=== PATIENT | female | born 1980 | race Caucasian/White ===

== ENCOUNTER 2020-05-20 11:08 | Outpatient (CLI) | payer OTHER, SELFPAY ==
--- NOTE | ~2020-05-20 | DEXA_ITS ---
Bone Density Report Name: Falguni Hemphill Age: 39 Sex: Female Ethnicity: White Date of : 1980 Indication: postmenopausal; height loss; Referring Provider: Renée Lim Study: Bone densitometry was performed. Exam Date: May 20, 2020 Accession number: [id number] Bone Density: Region BMD T-score Z-score Classification AP Spine (L1-L4) 1.196 1.4 1.5 Normal Femoral Neck (Left) 0.923 0.7 0.9 Normal Total Hip (Left) 1.008 0.5 0.7 Normal Femoral Neck (Right) 0.840 -0.1 0.2 Normal Total Hip (Right) 0.973 0.3 0.4 Normal Total Hip Mean 0.991 0.4 0.6 Normal World Health Organization criteria for BMD impression classify patients as: Normal (T-score at or above -1.0), Osteopenia (T-score between -1.0 and -2.5), or Osteoporosis (T-score at or below -2.5). 10-year Fracture Risk: FRAX not reported because: All T-scores for Spine Total, Hip Total, Femoral Neck at or above -1.0 Clinical Information Provided by Patient: Patient maximum height was 68 Menopause Age: 38 Drinks caffeinated beverages Onset of menses at age 17 Number of children 0 Impression: The patient has normal bone mass. Discussion: BONE DENSITY IS ABOVE THE MINIMUM DESIRABLE LEVEL AT ALL SKELETAL SITES TESTED. This patient?s bone mineral density is above the minimum desirable level (T-score -1.0 or better) at all sites measured. The patient should follow a healthful lifestyle (good nutrition with adequate calcium and vitamin D, and appropriate weight-bearing exercise). Follow-Up: Consider repeating this study in 5 years or sooner if there is some new clinical indication. Reported by: JAH on 05/20/2020 4:20:00 PM. Reviewed, dictated and finalized at location ASrini MCCRACKEN
== END 2020-05-20 11:09 ==
PROVIDERS: Visit Provider Advanced Practice Midwife
DX: Z30.42 Encounter for surveillance of injectable contraceptive (principal); Z78.0 Asymptomatic menopausal state
CPT/HCPCS: 77080

== ENCOUNTER 2020-07-10 06:42 | Outpatient (CLI) | payer OTHER, SELFPAY ==
--- NOTE | ~2020-07-10 | MR_ITS ---
EXAMINATION: MR lumbar spine wo con DATE: 07/10/2020 07:44 INDICATION: Low back pain. TECHNIQUE: Magnetic resonance imaging (MRI) of the lumbar spine was performed without intravenous con trast. Sequences included sagittal T2-weighted FSE, sagittal T2-weighted FS FSE, sagittal T1-weighted FSE, and axial T2-weighted FSE. COMPARISON: Lumbar spine MRI 02/12/2012 FINDINGS: Bone alignment is normal. There is a Schmorl's node of L4 superior endplate. There is mildl y decreased disc height at L5-S1. The distal spinal cord signal intensity is normal. The conus medull dylan is at L1. The following disc levels are specifically discussed: L1-L2: The disc does not extend beyond the endplate margin. There is mild bilateral facet joint osteo arthritis. There is no neural foraminal stenosis. There is no central canal stenosis. L2-L3: The disc does not extend beyond the endplate margin. There is mild bilateral facet joint osteo arthritis. There is no neural foraminal stenosis. There is no central canal stenosis. L3-L4: The disc does not extend beyond the endplate margin. There is moderate bilateral facet joint o steoarthritis. There is no neural foraminal stenosis. There is no central canal stenosis. L4-L5: The disc is bulging and has an annular fissure. There is moderate bilateral facet joint osteoa rthritis. There is mild bilateral neural foraminal stenosis. There is mild central canal stenosis. L5-S1: There is a right central extrusion. There is moderate bilateral facet joint osteoarthritis. Th ere is no neural foraminal stenosis. There is mild central canal stenosis. IMPRESSION: 1. Mild lumbar spondylosis, stable from 02/12/2012. Reviewed, dictated and finalized at location B. SORS SHARPENER
== END 2020-07-10 06:43 | disposition home or self-care (01) ==
PROVIDERS: PCP Internal Medicine; Visit Provider Internal Medicine
DX: M47.817 Spondylosis without myelopathy or radiculopathy, lumbosacral region (principal); M48.07 Spinal stenosis, lumbosacral region
CPT/HCPCS: 72148

== ENCOUNTER 2020-10-10 09:12 | Outpatient (CLI) | payer OTHER, SELFPAY ==
--- NOTE | ~2020-10-10 | MR_ITS ---
EXAMINATION: MR cervical spine wo con DATE: 10/10/2020 10:32 INDICATION: Cervical radiculopathy. TECHNIQUE: Magnetic resonance imaging (MRI) of the cervical spine was performed without intravenous c ontrast. Sequences included sagittal T2-weighted FSE, sagittal STIR FSE, sagittal T1-weighted FSE, ax ial MERGE, and axial T2-weighted FSE. COMPARISON: Cervical spine MRI 02/12/2012 FINDINGS: There is mild kyphosis of cervical spine. Vertebral body heights are normal. There is mildl y decreased disc height at C5-C6. There is syringohydromyelia from C6 to T1 with maximum diameter of 4 mm. The following disc levels are specifically discussed: C2-C3: The disc does not extend beyond the endplate margin. There is no uncovertebral joint osteoarth ritis. There is no facet joint osteoarthritis. There is no neural foraminal stenosis. There is no dominic tral canal stenosis. C3-C4: The disc does not extend beyond the endplate margin. There is mild right uncovertebral joint o steoarthritis. There is mild bilateral facet joint osteoarthritis. There is mild right neural foramin al stenosis. There is no central canal stenosis. C4-C5: The disc does not extend beyond the endplate margin. There is mild bilateral uncovertebral evelio nt osteoarthritis. There is mild bilateral facet joint osteoarthritis. There is no neural foraminal s tenosis. There is no central canal stenosis. C5-C6: The disc is bulging. There is mild bilateral uncovertebral joint osteoarthritis. There is no f acet joint osteoarthritis. There is mild right neural foraminal stenosis. There is mild central canal stenosis. C6-C7: The disc does not extend beyond the endplate margin. There is no uncovertebral joint osteoarth ritis. There is no facet joint osteoarthritis. There is no neural foraminal stenosis. There is no dominic tral canal stenosis. C7-T1: The disc does not extend beyond the endplate margin. There is no uncovertebral joint osteoarth ritis. There is mild bilateral facet joint osteoarthritis. There is no neural foraminal stenosis. The re is no central canal stenosis. IMPRESSION: 1. 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 2. Worsened mild cervical spondylosis. Reviewed, dictated and finalized at location A. INE CEMENTER AND FOLDER
== END 2020-10-10 09:13 ==
PROVIDERS: Visit Provider Chiropractor
DX: M47.22 Other spondylosis with radiculopathy, cervical region (principal)
CPT/HCPCS: 72141

== ENCOUNTER 2020-10-26 17:38 | Emergency (ER) | payer OTHER, SELFPAY ==
[2020-10-26 17:56] VITALS: BP 133/95; PULSE 93; RESP 16; TEMP 37; O2SAT 98
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
[2020-10-26] MEDS: SILVER SULFADIAZINE 1% CR 50 GM JAR (*BKC) 1 APPLIC TOPICAL (18:22)
== END 2020-10-26 18:34 | disposition home or self-care (01) ==
PROVIDERS: Emergency Provider Nurse Practitioner
DX: T54.2X1A Toxic effect of corrosive acids and acid-like substances, accidental (unintentional), initial encounter (principal); T22.512A Corrosion of first degree of left forearm, initial encounter; T22.511A Corrosion of first degree of right forearm, initial encounter; Y99.0 Civilian activity done for income or pay
CPT/HCPCS: 16000; 99213; A9270; G0463

== ENCOUNTER 2020-12-21 17:20 | Emergency (ER) | payer OTHER, SELFPAY ==
[2020-12-21] VITALS (14 sets, daily range): BP systolic 128–138; BP diastolic 80–101; PULSE 85–98; RESP 11–21; TEMP 36.2; O2SAT 99–100
--- NOTE | ~2020-12-21 | CT_ITS ---
EXAMINATION: CT BRAIN W/O DATE: 12/21/2020 19:58 INDICATION: Dizziness TECHNIQUE: Computed tomography (CT) of the head was performed without intravenous contrast. The dose- length product was 529.67 mGy-cm. Automated exposure control and iterative reconstruction technique w ere employed. COMPARISON: No prior studies for comparison. FINDINGS: Normal brain parenchymal volume for age. Normal farias-white differentiation. No acute intrac ranial hemorrhage, infarction, mass or mass effect. No ventriculomegaly or midline shift. Midline sagittal images demonstrate a normal corpus callosum, c raniovertebral junction and sella turcica. Basilar cisterns are patent. Paranasal sinuses and mastoids are pneumatized. No depressed skull fractures. IMPRESSION: 1. No acute intracranial abnormality. Reviewed, dictated and finalized at location A.
--- NOTE | ~2020-12-21 | XR_ITS ---
EXAMINATION: XR chest 2V 12/21/2020 18:25 INDICATION: Left-sided chest pain PROCEDURE: 2 view chest COMPARISON: 10/22/2015 FINDINGS: The lungs are clear. The cardiomediastinal silhouette is within normal limits. There are no pleural effusions. There is no pneumothorax suspected. IMPRESSION: 1: NO ACUTE CARDIOPULMONARY DISEASE. Reviewed, dictated and finalized at location A.
--- NOTE | 2020-12-21 17:59 | ECG_ITS ---
Measurements Intervals [place] Rate: 89 P: 54 RI: 153 QRS: 9 QRSD: 77 T: 39 QT: 337 QTc: 412 Interpretive Statements SINUS RHYTHM BASELINE ARTIFACT- I, III, AVL NORMAL ECG Electronically Signed On 12-21-2020 20:09:43 CDT by Jack Fernandez D.O.
[2020-12-21 18:51] LABS: Basophils Absolute Auto 0.1 K/mm3 (0.0-0.1); Basophils Percent Auto 0.6 % (0.2-1.2); Eosinophils Absolute Auto 0.1 K/mm3 (0-0.3); Eosinophils Percent Auto 1.2 % (0-4.4); Hematocrit 40.9 % (37.0-47.0); Hemoglobin 13.5 g/dL (12.0-15.0); Immature Granulocyte Absolute 0.03 K/mm3 (0.00-0.031); Immature Granulocyte Percent A 0.4 % (0-0.5); Lymphocytes Absolute Auto 2.69 K/mm3 (0.9-3.2); Lymphocytes Percent Auto 32.2 % (18.3-44.2); Mean Corpuscular Hemoglobin 28.2 pg (26-34); Mean Corpuscular Volume 85.6 fl (80-100); Mean Platelet Volume 10.7 fl (7.4-10.4); Monocytes Absolute Auto 0.6 K/mm3 (0.1-0.6); Monocytes Percent Auto 6.8 % (2.6-8.5); Neutrophils Absolute Auto 4.9 K/mm3 (1.3-6.7); Neutrophils Percent Auto 58.8 % (45.5-73.1); Platelet Count Result 242 k/mm3 (150-375); Red Blood Count 4.78 M/mm3 (4.2-5.4); Red Cell Distribution Width 12.1 % (11.5-14.5); White Blood Count 8.4 K/mm3 (4.5-10.0)
[2020-12-21 19:00] LABS: INR 0.9; Prothrombin Time 12.9 Seconds (11.1-14.7)
[2020-12-21 19:01] LABS: Partial Thromboplastin Time 27.6 SECONDS (22.3-36.8)
[2020-12-21 19:07] LABS: Anion Gap 11 mmol/L (8-16); Blood Urea Nitrogen 12 mg/dL (7-17); Calcium 9.5 mg/dL (8.4-10.2); Carbon Dioxide 26 mmol/L (22-30); Chloride 107 mmol/L (98-107); Estimated CRCL calculation 74 ml/min; Estimated Glomerular Filt Rate > 60; Glucose 86 mg/dL (65-105); Potassium 3.6 mmol/L (3.4-5.0); Sodium 144 mmol/L (137-145)
[2020-12-21 19:20] LABS: Troponin I < 0.012 ng/mL (0.000-0.034)
[2020-12-21] MEDS: ASPIRIN 81 MG CHEWABLE TABLET 324 MG PO (19:33)
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
[2020-12-21] MEDS: SODIUM CHLORIDE 0.9% IV 1,000 ML 999 ML IV CONT (19:39)
[2020-12-21] MEDS: diazePAM (*CRX) 2 MG TABLET PO (19:39)
--- NOTE | 2020-12-21 19:40 | ED.CHESTPAIN ---
HPI - Chest Pain General Chief Complaint: Chest Pain Stated Complaint: chest pain, sent from [facility] Time Seen by Provider: 12/21/20 19:05 Source: patient Mode of arrival: ambulatory Limitations: no limitations History of Present Illness HPI narrative: Patient presents for evaluation of chest pain and dizziness. She indicates she was mowing the lawn on Tuesday of last week when she felt acute onset left-sided chest pain. She states she felt like she was going to pass out . She had associated fuzzy vision in both eyes right greater than left. Related Data Home Medications Medication Instructions Recorded Confirmed medroxyprogesterone mg IM 10/26/20 Allergies Allergy/AdvReac Type Severity Reaction Status Date / Time doxycycline Allergy Severe SWELLING Verified 12/21/20 18:03 IN THE MOUTH codeine Allergy Unknown MOUTH Verified 12/21/20 18:03 INFLAMMATION AND MOUTH SORES acetaminophen AdvReac Severe swelling Verified 12/21/20 18:03 hydrocodone AdvReac Severe swelling Verified 12/21/20 18:03 PMFSH Past Medical History Medical History (Updated 10/27/20 @ 00:00 by Cecily Yi) Depression Eczema Fatty liver History of gallbladder disease History of pneumonia Hx of transient ischemic attack (TIA) Surgical History Surgical History (Updated 09/11/19 @ 15:24 by Edd Butt) History of cholecystectomy History of left knee surgery x1 Hx of right knee surgery x2 Family History Family History (Updated 03/27/15 @ 08:12 by DOCTOR UNKNOWN) Mother Hypertension Other Cerebrovascular accident Diabetes mellitus Family history of allergic disorder Family history of malignant neoplasm Social History Social History Smoking status: Never smoker Second hand tobacco smoke exposure: Yes Smoking end date: 08/29/95 Alcohol intake: never Gender identity (if verbalized by the patient): Female Course Vital Signs Vital signs: Vital Signs Temperature 36.2 C L 12/21/20 18:00 Pulse Rate 91 12/21/20 18:00 Respiratory Rate 18 12/21/20 18:00 Blood Pressure 128/80 12/21/20 18:00 Pulse Oximetry 100 12/21/20 18:00 Temperature 36.2 C L 12/21/20 18:00 Pulse Rate 89 12/21/20 18:55 Respiratory Rate 14 12/21/20 18:55 Blood Pressure 132/101 H 12/21/20 18:55 Pulse Oximetry 100 04/25/21 18:55 MDM - Chest Pain Lab Data Result diagrams: 12/21/20 18:44 12/21/20 18:44 Labs: Lab Results 12/21/20 12/21/20 12/21/20 Range/Units 18:44 18:44 18:44 WBC 8.4 (4.5-10.0) K/mm3 RBC 4.78 (4.2-5.4) M/mm3 Hgb 13.5 (12.0-15.0) g/dL Hct 40.9 (37.0-47.0) % MCV 85.6 (80-100) fl MCH 28.2 (26-34) pg MCHC 33.0 (32-36) g/dl RDW 12.1 (11.5-14.5) % Plt Count 242 (150-375) k/mm3 MPV 10.7 H (7.4-10.4) fl Immature Gran % (Auto) 0.4 (0-0.5) % Neut % (Auto) 58.8 (45.5-73.1) % Lymph % (Auto) 32.2 (18.3-44.2) % [facility] [place] [facility] % (Auto) 6.8 (2.6-8.5) % Eos % (Auto) 1.2 (0-4.4) % Baso % (Auto) 0.6 (0.2-1.2) % Lymph # (Auto) 2.69 (0.9-3.2) K/mm3 [facility] [place] [facility] # (Auto) 0.6 (0.1-0.6) K/mm3 Eos # (Auto) 0.1 (0-0.3) K/mm3 Baso # (Auto) 0.1 (0.0-0.1) K/mm3 Abs Immat Gran (auto) 0.03 (0.00-0.031) K/mm3 Absolute Neuts (auto) 4.9 (1.3-6.7) K/mm3 Absolute Nucleated RBC 0.0 (0.0-0.012) K/mm3 Nucleated RBC % 0.0 (0.0-0.2) % PT 12.9 (11.1-14.7) Seconds INR 0.9 APTT 27.6 (22.3-36.8) SECONDS Sodium 144 (137-145) mmol/L Potassium 3.6 (3.4-5.0) mmol/L Chloride 107 (98-107) mmol/L Carbon Dioxide 26 (22-30) mmol/L Anion Gap 11 (8-16) mmol/L BUN 12 (7-17) mg/dL Creatinine 0.90 (0.7-1.0) mg/dL Estim Creat Clear Calc 74 ml/min Estimated GFR > 60 (59 - ) Glucose 86 (65-105) mg/dL Calcium 9.5 (8.4-10.2) mg/dL Troponin I < 0.012 (0.000-0.034) ng/mL Discharge Plan Discha
--- NOTE | 2020-12-21 19:59 | PC.NURSE ---
Patient in CT.
[2020-12-21 20:12] LABS: D Dimer 0.27 ug/mL (<0.48)
[2020-12-21 21:04] LABS: Add Urine Microscopic? YES; Appearance Urine Clear (Clear); Bacteria Urine Trace /hpf; Bilirubin Urine Negative (Negative); Blood Urine Negative (Negative); Color Urine Yellow (Yellow); Glucose Urine UA Negative (Negative); Ketones Urine Negative (Negative); Leukocyte Esterase Ur Trace LEU/UL (Negative); Mucus Urine Rare /lpf; Nitrate Urine Negative (Negative); Protein Urine Negative (Negative); RBC Urine 0-2 /hpf (0-2); Specific Grav Ur 1.024 (1.001-1.035); Squamous Epithelial Cell Urine Rare /hpf (Few); Urobilinogen Urine Negative mg/dL (<2.0); WBC Urine 0-3 /hpf
== END 2020-12-21 21:14 | disposition home or self-care (01) ==
PROVIDERS: General Practice; Emergency Provider Nurse Practitioner; PCP Internal Medicine
DX: R07.9 Chest pain, unspecified (principal); R42 Dizziness and giddiness; F32.9 Major depressive disorder, single episode, unspecified; Z86.73 Personal history of transient ischemic attack (TIA), and cerebral infarction without residual deficits; Z77.22 Contact with and (suspected) exposure to environmental tobacco smoke (acute) (chronic)
CPT/HCPCS: 36415; 70450; 71046; 80048; 81001; 84484; 85025; 85380; 85610; 85730; 93005; 96360; 99284; A9270; J7030

== ENCOUNTER 2021-09-28 09:48 | Outpatient (CLI) | payer OTHER, SELFPAY ==
--- NOTE | ~2021-09-28 | XR_ITS ---
EXAMINATION: XR abdomen/kub 1V INDICATION: Bilateral nephrolithiasis TECHNIQUE: Supine views of the abdomen were obtained on 2 radiographs. COMPARISON: 04/15/2015 FINDINGS: No urolithiasis is identified. There are phleboliths of the left pelvis. The bowel gas castillo sultana is normal. Surgical clips in the right upper quadrant are likely from prior cholecystectomy. IMPRESSION: 1. No urolithiasis identified. Reviewed, dictated and finalized at location B. FILTER CLOTH CHANGER
--- NOTE | ~2021-09-28 | US_ITS ---
EXAMINATION: US retroperitoneal comp DATE: 09/28/2021 10:29 INDICATION: History of kidney stones TECHNIQUE: Multiple grayscale and Doppler ultrasound images of the kidneys were obtained. COMPARISON: 01/02/2015 FINDINGS: The right kidney measures 10.8 x 5.3 x 4.8 cm. The left kidney measures 10.6 x 5.1 x 4.3 cm . The kidneys demonstrate normal parenchymal echogenicity. There is no hydronephrosis. The bladder is normal. IMPRESSION: 1. Normal kidneys without hydronephrosis. Reviewed, dictated and finalized at location B. 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
== END 2021-09-28 09:49 | disposition home or self-care (01) ==
LOC: ANHIMG 09:54
PROVIDERS: PCP Internal Medicine; Visit Provider Nurse Practitioner Adult Health
DX: N20.0 Calculus of kidney (principal)
CPT/HCPCS: 74018; 76770

== ENCOUNTER 2021-12-12 21:41 | Emergency (ER) | payer OTHER, SELFPAY ==
--- NOTE | ~2021-12-12 | XR_ITS ---
EXAMINATION: XR chest 1V portable DATE: 12/12/2021 22:04 INDICATION: Cough and congestion. TECHNIQUE: A single frontal view of the chest was obtained. COMPARISON: Chest 2 views 12/21/2020 FINDINGS: The chest demonstrates clear lungs without pneumonia, pleural effusion, or pneumothorax. Th e heart size is normal. IMPRESSION: 1. No acute cardiopulmonary disease. Reviewed, dictated and finalized at location A.
[2021-12-12 21:44] VITALS: BP 106/82; PULSE 111; RESP 18; TEMP 36.7; O2SAT 100
--- NOTE | 2021-12-12 22:16 | ED.GENADULT ---
HPI - General Adult General Chief complaint: Upper Respiratory Infection Stated complaint: cough a week Time Seen by Provider: 12/12/21 21:49 Source: patient Mode of arrival: ambulatory Limitations: no limitations History of Present Illness HPI narrative: 41-year-old female with history of bronchitis presenting to the emerge department for evaluation of cough and congestion that has been worsening over the last few days. Patient states that the symptoms are consistent with her previous episodes of bronchitis which she gets yearly. Patient states she is not a smoker. Patient does report painful cough but denies any chest pain when not coughing. Related Data Home Medications Medication Instructions Recorded Confirmed medroxyprogesterone mg IM 10/26/20 Allergies Allergy/AdvReac Type Severity Reaction Status Date / Time doxycycline Allergy Severe SWELLING Verified 12/21/20 18:03 IN THE MOUTH codeine Allergy Unknown MOUTH Verified 12/21/20 18:03 INFLAMMATION AND MOUTH SORES acetaminophen AdvReac Severe swelling Verified 12/21/20 18:03 hydrocodone AdvReac Severe swelling Verified 12/21/20 18:03 Review of Systems Review of Systems: CONSTITUTIONAL: Denies fever, chills, or sweats. EYES: Denies visual changes, redness, or discharge. ENT: Denies rhinorrhea, congestion, sore throat, or otalgia. CARDIOVASCULAR: Denies chest pain, palpitations, or edema. RESPIRATORY: See HPI GASTROINTESTINAL: Denies abdominal pain, nausea, vomiting, or diarrhea. GENITOURINARY: Denies dysuria or hematuria. SKIN: Denies rash or itching. MUSCULOSKELETAL: Denies back pain, joint pain, or myalgia. NEUROLOGIC: Denies headache, numbness, or weakness. All systems reviewed & are unremarkable except as noted in HPI and below PMFSH Past Medical History Medical History Depression Eczema Fatty liver History of gallbladder disease History of pneumonia Hx of transient ischemic attack (TIA) Surgical History Surgical History History of cholecystectomy History of left knee surgery x1 Hx of right knee surgery x2 Family History Family History Mother Hypertension Other Cerebrovascular accident Diabetes mellitus Family history of allergic disorder Family history of malignant neoplasm Social History Social History Smoking status: Never smoker Second hand tobacco smoke exposure: Yes Smoking end date: 08/29/95 Alcohol intake: never Gender identity (if verbalized by the patient): Female Exam Narrative: APPEARANCE: Well appearing, no pain, no distress, well-nourished. HEAD: normocephalic, atraumatic. EYES: PERRLA/EOMI, conjunctivae clear. NOSE: Normal no drainage THROAT: Pharynx clear, no exudate. NECK: Supple. No adenopathy, no masses. RESPIRATORY: Airway patent, respirations nonlabored. Clear to auscultation bilaterally, no rales, rhonchi, wheezing. CARDIOVASCULAR: Regular rate and rhythm without murmurs rubs or gallops. ABDOMINAL: Soft, nontender, nondistended, normal bowel sounds MUSCULOSKELETAL: Moves all extremities. Strength/ROM intact, No edema, No calf tenderness. NEURO: Alert. Cranial nerves II through XII intact. Grossly intact SKIN: Warm, dry. Normal Color Course Course Emergency Course: Patient was negative for Covid and for influenza. Chest x-ray shows no acute cardiopulmonary abnormality. Patient is being treated for a viral illness or bronchitis. Patient will be discharged with albuterol inhaler. Patient was also provided Tessalon Perles for cough. Patient was encouraged to have close follow-up with her primary care physician. Vital Signs Vital signs: Vital Signs Temperature 98.0 F 12/12/21 21:44 Pulse Rate 111 H 12/12/21 21:44 Respirator
[2021-12-12 22:42] VITALS: BP 119/76; PULSE 102; RESP 18; O2SAT 100
[2021-12-12 23:09] LABS: Influenza A QL RT-PCR Negative (Negative); Influenza B QL RT-PCR Negative (Negative); SARS-CoV-2 RNA PCR Negative
[2021-12-12 23:26] VITALS: BP 132/78; PULSE 103; RESP 18; O2SAT 100
== END 2021-12-12 23:31 | disposition home or self-care (01) ==
PROVIDERS: Emergency Provider Emergency Medicine; PCP Internal Medicine
DX: J40 Bronchitis, not specified as acute or chronic (principal); Z20.822 Contact with and (suspected) exposure to COVID-19; Z87.01 Personal history of pneumonia (recurrent); Z86.73 Personal history of transient ischemic attack (TIA), and cerebral infarction without residual deficits; Z87.891 Personal history of nicotine dependence
CPT/HCPCS: 71045; 87502; 99283; C9803; U0003; U0005

== ENCOUNTER 2022-07-31 08:57 | Outpatient (CLI) | payer OTHER, SELFPAY ==
--- NOTE | 2022-07-31 | ECG_ITS ---
Measurements Intervals [place] Rate: 88 P: 60 NE: 146 QRS: 25 QRSD: 93 T: 44 QT: 360 QTc: 436 Interpretive Statements SINUS RHYTHM NORMAL ECG COMPARED TO ECG 12/21/2020 18:36:42 NO SIGNIFICANT CHANGES Electronically Signed On 07-31-2022 14:07:48 ELECTRONIC ENGINEERING DRAFTSPERSON by Michel Vásquez M.D.
--- NOTE | ~2022-07-31 | XR_ITS ---
EXAMINATION: XR chest 2V 07/31/2022 09:24 INDICATION: Preoperative for cervical disc replacement PROCEDURE: 2 view chest COMPARISON: Comparison to multiple prior studies sequentially, with oldest reviewed study dated 06/30. FINDINGS: The lungs are clear. The cardiomediastinal silhouette is within normal limits. There are no pleural effusions. There is no pneumothorax suspected. IMPRESSION: 1: NO ACUTE CARDIOPULMONARY DISEASE. Reviewed, dictated and finalized at location A. MENT PREPARER MICROFILMING
[2022-07-31 10:27] LABS: Anion Gap 10 mmol/L (8-16); Basophils Absolute Auto 0.1 K/mm3 (0.0-0.1); Basophils Percent Auto 0.8 % (0.2-1.2); Blood Urea Nitrogen 9 mg/dL (7-17); Carbon Dioxide 24 mmol/L (22-30); Chloride 105 mmol/L (98-107); Eosinophils Absolute Auto 0.2 K/mm3 (0-0.3); Eosinophils Percent Auto 1.9 % (0-4.4); Estimated Glomerular Filt Rate > 60; Glucose 105 mg/dL (65-110); Hematocrit 39.1 % (37.0-47.0); Hemoglobin 13.5 g/dL (12.0-15.0); Immature Granulocyte Absolute 0.02 K/mm3 (0.00-0.031); Immature Granulocyte Percent A 0.3 % (0-0.5); Lymphocytes Absolute Auto 2.95 K/mm3 (0.9-3.2); Lymphocytes Percent Auto 37.2 % (18.3-44.2); Mean Corpuscular HGB Conc 34.5 g/dl (32-36); Mean Corpuscular Hemoglobin 28.7 pg (26-34); Monocytes Absolute Auto 0.6 K/mm3 (0.1-0.6); Monocytes Percent Auto 6.9 % (2.6-8.5); Neutrophils Absolute Auto 4.2 K/mm3 (1.3-6.7); Neutrophils Percent Auto 52.9 % (45.5-73.1); Platelet Count Result 243 k/mm3 (150-375); Potassium 3.6 mmol/L (3.4-5.0); Red Blood Count 4.71 M/mm3 (4.2-5.4); Red Cell Distribution Width 12.5 % (11.5-14.5); Sodium 139 mmol/L (137-145); White Blood Count 7.9 K/mm3 (4.5-10.0)
[2022-07-31 10:29] LABS: Prothrombin Time 12.8 Seconds (11.1-14.7)
[2022-07-31 10:30] LABS: Partial Thromboplastin Time 27.2 SECONDS (22.3-36.8)
== END 2022-07-31 08:58 | disposition home or self-care (01) ==
PROVIDERS: PCP Internal Medicine; Visit Provider Neurological Surgery
DX: M50.222 Other cervical disc displacement at C5-C6 level (principal); M12.88 Other specific arthropathies, not elsewhere classified, other specified site; G95.0 Syringomyelia and syringobulbia
CPT/HCPCS: 36415; 71046; 80048; 85025; 85610; 85730; 93005

== ENCOUNTER 2023-09-08 08:18 | Outpatient (CLI) | payer OTHER, SELFPAY ==
--- NOTE | ~2023-09-08 | XR_ITS ---
AP and oblique views of the SI joints Clinical history chronic back pain FINDINGS: SI joints and hip joints are unremarkable. No fracture seen. Soft tissues are unremarkable. IMPRESSION: Unremarkable exam. Reviewed, dictated and finalized at location M. GER DISASTER RECOVERY IMPRESSION: Unremarkable exam.
--- NOTE | ~2023-09-08 | XR_ITS ---
Lumbosacral Spine: AP and lateral views Clinical History: Pain Findings: The normal lordotic curve is maintained. The vertebral bodies and posterior elements are i ntact. The intervertebral disc spaces are preserved. The sacroiliac joints are normally outlined. Impression: No significant abnormality. Reviewed, dictated and finalized at [facility]. ARMS INSPECTOR Impression: No significant abnormality.
== END 2023-09-08 08:19 | disposition home or self-care (01) ==
LOC: ANHIMG 08:24
PROVIDERS: PCP Internal Medicine; Visit Provider Internal Medicine
DX: M54.50 Low back pain, unspecified (principal)
CPT/HCPCS: 72100; 72202

== ENCOUNTER 2024-05-02 13:55 | Emergency (ER) | payer OTHER, SELFPAY ==
[2024-05-02 14:02] VITALS: BP 132/82; PULSE 108; RESP 18; TEMP 36.5; O2SAT 100
--- NOTE | 2024-05-02 14:29 | ED.GENADULT ---
HPI - General Adult General Chief complaint: Wound/Laceration Stated complaint: infected umbilicus Time Seen by Provider: 05/02/24 14:08 History of Present Illness HPI narrative: 43-year-old female presenting to the emergency department for evaluation for infection her belly button. Patient 1st noticed the infection this morning. Patient states the umbilicus does sting and she has increased erythema. Patient denies any pain or injury. Patient denies any discharge. Related Data Home Medications Medication Instructions Recorded Confirmed medroxyprogesterone 150 mg/mL mg IM 10/26/20 intramuscular suspension Allergies Allergy/AdvReac Type Severity Reaction Status Date / Time doxycycline Allergy Severe SWELLING Verified 12/21/20 18:03 IN THE MOUTH codeine Allergy Unknown MOUTH Verified 12/21/20 18:03 INFLAMMATION AND MOUTH SORES acetaminophen AdvReac Severe swelling Verified 12/21/20 18:03 hydrocodone AdvReac Severe swelling Verified 12/21/20 18:03 Review of Systems Review of Systems: All systems reviewed & are unremarkable except as noted in HPI and below PMFSH Past Medical History Medical History Depression Eczema Fatty liver History of gallbladder disease History of pneumonia Hx of transient ischemic attack (TIA) Surgical History Surgical History History of cholecystectomy History of left knee surgery x1 Hx of right knee surgery x2 Family History Family History Mother Hypertension Other Cerebrovascular accident Diabetes mellitus Family history of allergic disorder Family history of malignant neoplasm Social History Social History Smoking status: Never smoker Second hand tobacco smoke exposure: Yes Smoking end date: 08/29/95 Alcohol intake: never Gender identity (if verbalized by the patient): Female Exam Narrative: APPEARANCE: Well appearing, no pain, no distress, well-nourished. HEAD: normocephalic, atraumatic. EYES: PERRLA/EOMI, conjunctivae clear. NOSE: Normal no drainage EARS:TMS clear with good light reflex. THROAT: Pharynx clear, no exudate. NECK: Supple. No adenopathy, no masses. RESPIRATORY: Airway patent, respirations nonlabored. Clear to auscultation bilaterally, no rales, rhonchi, wheezing. CARDIOVASCULAR: Regular rate and rhythm without murmurs rubs or gallops. ABDOMINAL: Soft, nontender, nondistended, normal bowel sounds MUSCULOSKELETAL: Moves all extremities. Strength/ROM intact, No edema, No calf tenderness. NEURO: Alert. Cranial nerves II through XII intact. Good gait. Good coordination SKIN: Mild erythema at the base of her umbilicus Course Course Emergency Course: Patient was started on Bactroban for possible umbilical cellulitis. Vital Signs Vital signs: Vital Signs Temperature 97.7 F 05/02/24 14:02 Pulse Rate 108 H 05/02/24 14:02 Respiratory Rate 18 05/02/24 14:02 Blood Pressure 132/82 05/02/24 14:02 Pulse Oximetry 100 05/02/24 14:02 Oxygen Delivery Room Air 05/02/24 14:02 Temperature 97.7 F 05/02/24 14:02 Pulse Rate 108 H 05/02/24 14:02 Respiratory Rate 18 05/02/24 14:02 Blood Pressure 132/82 05/02/24 14:02 Pulse Oximetry 100 05/02/24 14:02 Oxygen Delivery Room Air 05/02/24 14:02 Medical Decision Making [facility] Narrative Medical decision making narrative: 43-year-old female presents emergency department for evaluation for suspected infection at the base of her umbilicus. Patient has no active drainage. No surrounding erythema. Patient was started on Bactroban and encouraged to have close follow-up with her primary care physician. Vital Signs Vital Signs: Vital Signs Temperature 97.7 F 05/02/24 14:02 Pulse Rate
== END 2024-05-02 14:42 | disposition home or self-care (01) ==
PROVIDERS: Emergency Provider Emergency Medicine; PCP Internal Medicine
DX: L03.316 Cellulitis of umbilicus (principal); Z86.73 Personal history of transient ischemic attack (TIA), and cerebral infarction without residual deficits
CPT/HCPCS: 99283

== ENCOUNTER 2024-05-14 09:04 | Emergency (ER) | payer OTHER, SELFPAY ==
--- NOTE | ~2024-05-14 | XR_ITS ---
EXAMINATION: XR knee LT min 4V DATE: 05/14/2024 09:32 INDICATION: Lateral left knee pain post twisting injury 5 days prior TECHNIQUE: Weight bearing anteroposterior and Griffith, sunrise, and flexed lateral views of the lef t knee were obtained COMPARISON: None. FINDINGS: Alignment is normal. No fracture. Joint spaces are normal. There is mild hypertrophic change along t he lateral margin of the patella. Minimal left knee joint effusion at the suprapatellar pouch.. Soft tissues are otherwise unremarkable. IMPRESSION: 1. Minimal left knee joint effusion. No acute osseous abnormality. Reviewed, dictated and finalized at location B.
[2024-05-14 09:15] VITALS: BP 122/88; PULSE 85; RESP 16; TEMP 36.4; O2SAT 100
--- NOTE | 2024-05-14 09:16 | ED.LOWEXIN ---
HPI - Extremity Injury (Lower) General Chief Complaint: Extremity Injury, Lower Stated Complaint: Injured Left Knee Time Seen by Provider: 05/14/24 09:27 Source: patient, RN notes reviewed and old records reviewed Mode of arrival: ambulatory Limitations: no limitations History of Present Illness HPI Narrative: 43-year-old female presents to the [facility] with complaints of left knee pain and swelling. Patient reports that she was walking, stepped in a hole and twisted her knee on Tuesday, 3 days ago. No bruising noted. Tenderness to the entire anterior portion with tightness on the upper portion Swelling is noted to the lateral, medial and lower aspect of the knee Onset (ago): day(s) (3) Related Data Home Medications Medication Instructions Recorded Confirmed medroxyprogesterone 150 mg/mL mg IM 10/26/20 intramuscular suspension Allergies Allergy/AdvReac Type Severity Reaction Status Date / Time doxycycline Allergy Severe SWELLING Verified 05/14/24 09:27 IN THE MOUTH codeine Allergy Unknown MOUTH Verified 05/14/24 09:27 INFLAMMATION AND MOUTH SORES acetaminophen AdvReac Severe swelling Verified 05/14/24 09:27 hydrocodone AdvReac Severe swelling Verified 05/14/24 09:27 Review of Systems Review of Systems: All systems reviewed & are unremarkable except as noted in HPI and below Constitutional: Constitutional: Reports no additional constitutional complaints Eyes: Eyes: Reports no additional eye complaints ENT: Reports system reviewed and no additional complaints, except as documented Cardiovascular: Cardiovascular: Reports no additional cardiovascular complaints, Denies chest pain and Denies dyspnea Respiratory: Respiratory: Reports no additional respiratory complaints, Denies chest congestion, Denies cough and Denies dyspnea Gastrointestinal: Gastrointestinal: Reports no additional gastrointestinal complaints, Denies abdominal pain, Denies nausea and Denies vomiting Musculoskeletal: Musculoskeletal: Reports as per HPI, Reports arthralgias (Left knee) and Reports joint swelling (left knee) Integumentary/Breasts: Skin/Breast: Reports system reviewed and no additional complaints, except as docu Neurologic: Reports system reviewed and no additional complaints, except as documented Psychiatric: Psychiatric: Reports no additional psychiatric complaints Allergic/Immunologic: Allergic/Immunologic: Reports no additional allergic/immunologic complaints PMFSH Past Medical History Medical History Depression Eczema Fatty liver History of gallbladder disease History of pneumonia Hx of transient ischemic attack (TIA) Surgical History Surgical History History of cholecystectomy History of left knee surgery x1 Hx of right knee surgery x2 Family History Family History Mother Hypertension Other Cerebrovascular accident Diabetes mellitus Family history of allergic disorder Family history of malignant neoplasm Social History Social History Smoking status: Never smoker Second hand tobacco smoke exposure: Yes Smoking end date: 08/29/95 Alcohol intake: never Gender identity (if verbalized by the patient): Female Comments At the time of my signature, I reviewed and agree with the nursing past medical, surgical, social, and family history. There is no relevant family history pertinent to the patient complaint. Exam Const: General: cooperative, healthy appearing, comfortable, no acute distress, well developed, alert and well nourished Nutritional Appearance: well nourished Orientation/consciousness: patient oriented x3 Limitations: no limitations HENMT: Head: normal to inspection Ears: hearing grossly normal bilaterally and external ears normal Fac
== END 2024-05-14 09:46 | disposition home or self-care (01) ==
PROVIDERS: Emergency Provider Nurse Practitioner
DX: M25.462 Effusion, left knee (principal); S83.92XA Sprain of unspecified site of left knee, initial encounter; X50.1XXA Overexertion from prolonged static or awkward postures, initial encounter; Z86.73 Personal history of transient ischemic attack (TIA), and cerebral infarction without residual deficits
CPT/HCPCS: 73564; 99213; G0463

== ENCOUNTER 2025-02-27 17:13 | Emergency (ER) | payer BC, SELFPAY ==
--- NOTE | ~2025-02-27 | XR_ITS ---
XR elbow RT min 3V Ordering provider: Evelyn Islas PA-C History: . right elbow pain, injury, SWELLING TO POSTERIOR ELBOW, . Comparison: None. FINDINGS: BONES: No acute fracture or dislocation. JOINT SPACES: Normal. SOFT TISSUES: Unremarkable. No definite joint effusion. IMPRESSION: No acute osseous abnormality of the right elbow. Reviewed, dictated and finalized at location A.
[2025-02-27 17:17] VITALS: BP 125/84; PULSE 81; RESP 16; TEMP 36.8; O2SAT 100
--- OUTSIDE RECORDS SUMMARY | 2025-02-27 17:17 | XMS_ITS | Clinical Summary ---
Author Organization [facility] [employer] Address [address] [place] [address] Care Team Providers Care Market Director Name Role Phone Doug Oreilly MD Primary Care Provider Freddy Vann MD Unavailable [phone] Source Comments [facility] [employer],non-owned Affiliates and Associated Physician Practices is amultiple site organization consisting of ambulatory clinics and hospital sitesin [place], [place], [place] and [place]. This disclosure is being madepursuant to the Care Everywhere program and may not contain all information available regarding this patient. Last updated 18.[facility] [employer] Allergies Active Allergy Reactions Criticality Noted Date Comments Codeine 05/08/2012 Codeine Anaphylaxis High 10/19/2017 Hydrocodone-Acetaminophen Anaphylaxis High 8 Medications * Be aware that medications may not be up to date on this document. Alwaysverify current medications with the patient. Citalopram Hydrobromide (CITALOPRAM PO) Acti ve predniSONE (DELTASONE) 20 MG tabletIndications :Can use 10 mg tablets for last 10 days. Take 60 mg po x 5 days, 40 mg po x 5 days, 20 mg po x 5 days, then 10 mg x 5 days. Reasons: Can use 10 mg tablets for last 10 days. 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 Gender Identity Not on file Sexual Orientation Not on file Last Filed Vital Signs Vital Sign Reading Time Taken Comments Blood Pressure 118/78 01/28/2019 10:53 AM CDT Pulse 78 01/28/2019 10:53 AM CDT Temperature 37.1 C (98.8 F) 01/28/2019 10:53 AM CDT Respiratory Rate 15 01/28/2019 10:53 AM CDT Oxygen Saturation 99% 01/28/2019 10:53 AM CDT Inhaled Oxygen Concentration - - Weight 77.1 kg (170 lb) 01/28/2019 10:53 AM CDT Height 172.7 cm (5' 8) 01/28/2019 10:53 AM CDT Body Mass Index 25.85 01/28/2019 10:53 AM CDT Plan of Treatment Health Maintenance Due Date Last Done Comments LIPID TESTING 1981 MAMMOGRAM 1981 HIV SCREENING 1996 HEPATITIS C SCREENING 07/05/1999 DTAP/TDAP/TD VACCINES (1 - Tdap) 2000 HEPATITIS B VACCINE (1 of 3 - 19+ 3-dose series) 2000 COVID-19 VACCINE (1 - 2023- season) 2024 DEPRESSION SCREENING 08/29/2024 INFLUENZA VACCINE (Season Ended) 2025 06/09/2018, 09/10/2017, 06/22/2013, Additional history exists ZOSTER VACCINE (1 of 2) 2031 HIB VACCINE Aged Out No longer eligi ble based on patient's age to complete this topic HPV VACCINE Aged Out No longer eligi ble based on patient's age to complete this topic MENINGOCOCCAL (Group B) VACCINE SHARED DECISION-MAKING Aged Out No longer eligible based on patient's age to complete this topic MENINGOCOCCAL GROUPS A/C/Y/W VACCINE Aged Out No longer eligible based on patient's age to complete this topic PNEUMOCOCCAL VACCINE Aged Out No long er eligible based on patient's age to complete this topic Insurance [employer] Care Teams Market Director Relationship Specialty Start Date End Date Doug Oreilly MD PCP - General 02/08/18 Freddy Vann MD [address] [place] [phone] Internal Medicine 02/08/18
--- OUTSIDE RECORDS SUMMARY | 2025-02-27 17:17 | XMS_ITS | Clinical Summary ---
Author Organization [facility] Address [address] [place] [address] Phone Care Team Providers Care Aerospace Manager Name Role Phone Unavailable Primary Care Provider Unavailabl e Allergies Active Allergy Reactions Criticality Noted Date Comments Codeine Anaphylaxis High 05/08/2012 Doxycycline Other (See Comments) 12/05/2020 Fluticasone Propion-Salmeterol Other (See Comments) 12/05/2020 Hydrocodone-Acetaminophen Anaphylaxis High 8 Medications medroxyPROGEST ERone (DEPO-PROVERA) 150 mg/mL Suspension INJECT 1 MILLILITER INTRAMUSCULARLY EVERY 3 MONTHS 10/10/19 21 Active cephALEXin (KEFLEX) 500 mg capsule TAKE 1 CAPSULE BY MOUTH EVERY 8 HOURS FOR 10 DAYS 11/06/19 21 Active aspirin-acetam inophen-caffei ne (Excedrin Migraine) 250-250-65 mg Tablet 2 times daily. Activ e meclizine (ANTIVERT) 25 mg tablet Take 25 mg by mouth 3 times daily as needed for Dizziness. Active promethazine-d extromethorpha n (PHENERGAN-DM) 6.25-15 mg/5 mL syrupIndicatio ns:Acute cough Take 5 mL by mouth every 4 hours as needed for Cough. 120 mL 11/06/19 25 Active Active Problems No known active problems Encounters Date Type Department Care Team Description 02/12/2025 External Device Data [facility] ABSTRACTION Provider, Abstract 01/29/2025 External Device Data [facility] ABSTRACTION Provider, Abstract 01/17/2025 External Device Data [facility] ABSTRACTION Provider, Abstract 01/15/2025 External Device Data [facility] Provider, Abstract from Last 3 Months Social History Tobacco Use Types Packs/Day Years Used Date Smoking Tobacco: Never Comments Unknown Sex and Gender Information Value Date Recorded Sex Assigned at Not on file Legal Sex Female 2:07 PM CDT Gender Identity Not on file Sexual Orientation Not on file Last Filed Vital Signs Vital Sign Reading Time Taken Comments Blood Pressure 121/88 11/05/2024 10:01 AM CDT Pulse 102 11/05/2024 10:01 AM CDT Temperature 36.8 C (98.2 F) 11/05/2024 10:01 AM CDT Respiratory Rate 18 11/05/2024 10:01 AM CDT Oxygen Saturation 99% 11/05/2024 10:01 AM CDT Inhaled Oxygen Concentration - - Weight 81.6 kg (180 lb) 11/05/2024 10:01 AM CDT Height 172.7 cm (5' 8) 11/05/2024 10:01 AM CDT Body Mass Index 27.37 11/05/2024 10:01 AM CDT Plan of Treatment Health Maintenance Due Date Last Done Comments Pre-Diabetes and Diabetes Screening 1981 DTAP/TDAP/TD VACCINES (1 - Tdap) 2000 HEPATITIS B VACCINES (1 of 3 - 19+ 3-dose series) 2000 08/10/2013, 03/10/2012, 02/09/2012 HPV/Cotest (21-29) 2002 CERVICAL CANCER SCREENING 2011 HPV/Cotest (30-65) 2011 PAP SMEAR 2011 BREAST CANCER SCREENING 2021 INFLUENZA VACCINE (#1) 2025 , 06/22/2013, 08/10/2012 HPV VACCINES Aged Out No longer eligi ble based on patient's age to complete this topic [place] [address] [address] [id number] PPO BCBS BLUE ACCESS/TRUE BLUE PPO WORKERS COMP
--- OUTSIDE RECORDS SUMMARY | 2025-02-27 17:17 | XMS_ITS | Clinical Summary ---
Author Organization [facility] Address [address] [place] [id number] Care Team Providers Care Station Helper Name Role Phone Unavailable Primary Care Provider Unavailabl e Social History Tobacco Use Types Packs/Day Years Used Date Smoking Tobacco: Never Assessed Comments Unknown Sex and Gender Information Value Date Recorded Sex Assigned at Not on file Legal Sex Female 7:16 PM CDT Gender Identity Not on file Sexual Orientation Not on file Last Filed Vital Signs Vital Sign Reading Time Taken Comments Blood Pressure 100/76 03/31/2012 11:04 AM CDT Pulse 66 03/31/2012 11:04 AM CDT Temperature - - Respiratory Rate - - Oxygen Saturation - - Inhaled Oxygen Concentration - - Weight 72.6 kg (160 lb) 03/31/2012 11:04 AM CDT Height 172.7 cm (5' 8) 03/31/2012 11:04 AM CDT Body Mass Index 24.33 03/31/2012 11:04 AM CDT Plan of Treatment Health Maintenance Due Date Last Done Comments Cervical Cancer Screening Pa p Smear (Age 30 to 64) Every 3 Years 1981 Annual Physical 1984 Hepatitis C 1999 DTaP, Tdap and Td Vaccines ( 1 - Tdap) 2000 Hepatitis B Vaccines (1 of 3 - 19+ 3-dose series) 2000 Cervical Cancer Screening Pa p with HPV Testing (Age 30 to 64) Every 5 Years 2011 Cervical Cancer Screening with HPV 2011 Mammogram Screening 2021 COVID-19 Vaccine (2023-2 5 season) 2024 HPV Vaccines Aged Out No longer eligi ble based on patient's age to complete this topic Meningococcal B Vaccine Aged Out No l onger eligible based on patient's age to complete this topic Meningococcal Vaccine Aged Out No ilene erica eligible based on patient's age to complete this topic Pneumococcal Vaccine: Pediat rics (0 to 5 Years) and At-Risk Patients (6 to 49 Years) Aged Out No longer eligible b ased on patient's age to complete this topic RSV Immunizations Under 20 Months Aged Out No longer eligible based on patient's age to complete this topic
--- OUTSIDE RECORDS SUMMARY | 2025-02-27 17:17 | XMS_ITS | Clinical Summary ---
Author Organization [facility] - NEUROLOGY [facility] Address [address] [place] [address] Phone Care Team Providers Care Commodity Analyst Name Role Phone Freddy Vann MD Primary Care Provider [phone] Allergies Active Allergy Reactions Criticality Noted Date Comments Fluticasone-Salmeterol Unknown 06/16/2021 Codeine Other (see Comments) 06/16/2021 Oral ulcers Doxycycline Other (see Comments) 06/16/2021 Oral ulcers Hydrocodone-Acetaminophen Unknown 06/16/2021 Medications medroxyPROGEST ERone (DEPO-PROVERA) 150 MG/ML Suspension by Intramuscular route once. Hazardous: Medication requires special safe handling and disposal. Active acetaminophen- caffeine (Excedrin Tension Headache) 500-65 MG Tablet Take 1 Tablet by mouth every 4 hours as needed. Active SUMAtriptan (IMITREX) 25 MG Tablet Take 1 Tablet by mouth once as needed for Migraine. Use as directed. May repeat dose in 2 hours if headache recurs. 9 Tablet 3 1 Active methylPREDNISo lone (MEDROL DOSPACK) 4 MG Tablet Therapy Pack Use as per instructions on package. 1 Dose Pack 2 Active Active Problems No known active problems Family History Medical History Relation Name Comments No Known Problems Father No Known Problems Mother Relation Name Status Comments Father Alive Mother Alive Social History Tobacco Use Types Packs/Day Years Used Date Smoking Tobacco: Never Smokeless Tobacco: Never Alcohol Use Standard Drinks/Week Comments Not Currently 0 (1 standard drink = 0.6 oz pur e alcohol) Sexually Active Control Partners Comments Not Currently Comments No Sex and Gender Information Value Date Recorded Sex Assigned at Not on file Legal Sex Female 2:33 PM CDT Gender Identity Not on file Sexual Orientation Not on file Last Filed Vital Signs Vital Sign Reading Time Taken Comments Blood Pressure 120/70 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 Pulse 82 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 Temperature 37 C (98.6 F) 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 Respiratory Rate 16 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 Oxygen Saturation 100% 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 Inhaled Oxygen Concentration - - Weight 94.6 kg (208 lb 9.6 oz) 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 Height 172.7 cm (5' 8) 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 Body Mass Index 31.72 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 Plan of Treatment Health Maintenance Due Date Last Done Comments Hepatitis C Virus (HCV) Screening 1980 TdaP Immunization 1980 SARS-COV-2 Immunization ( season) 2024 02/08/2021, 01/11/2021 Influenza Immunization (Season Ended) 2025 06/03/2021, 06/09/2018, 06/08/2018, Additional history exists Respiratory Syncytial Virus (RSV) Immunization (Adult) (1 - 1-dose 75+ series) 2056 Hepatitis B Immunization Completed 013, 03/10/2012, 02/09/2012 Human Papillomavirus (HPV) Immunization Aged Out No longer eligible based on patient's age to complete this topic Meningococcal Immunization (ACWY) Aged Out No longer eligible based on patient's age to complete this topic Pneumococcal Immunization Combined Aged Out No longer eligible based on patient's age to complete this topic Rotavirus Immunization Aged Out No lo nger eligible based on patient's age to complete this topic Insurance [employer] Care Teams Commodity Analyst Relationship Specialty Start Date End Date Freddy Vann MD PCP - General Internal Medicine 06/08/21
--- OUTSIDE RECORDS SUMMARY | 2025-02-27 17:17 | XMS_ITS | Data Portability ---
Author Organization [facility] Address [address] [place] [address] [place] [address] Care Team Providers Care Residence Leasing Agent Name Role Phone TOM NICOLAS Primary Care Provider [phone] Assessment No assessment recorded. Plan of Treatment Reminders Order Date Submit Date Provider Last Modified By Organization Details Last Modified Time Details Appointments None recorded. Lab CT + NG + TV, RNA, unspecified specimen 2023 024 [facility] (Lab), [address], [place], [address], 4 13:30:33 test, urine 2023 024 [email or web address] [address], [address], [place], [address], 4 12:52:36 urinalysis, dipstick 2023 024 [email or web address] [address], [address], [place], [address], 4 15:36:03 culture, urine 2023 024 [facility] (Lab), [address] [place], [address], 4 03:21:41 Referral None recorded. Procedures None recorded. Surgeries None recorded. Imaging None recorded. Medication Orders metronidazo le 0.75 % (37.5 mg/5 gram) vaginal gel 2024 025 [facility]/Pharmacy #[id number], [address], [place], [address], 5 12:07:29 Mirena 21 mcg/24 hr (up to 8 years) 52 mg intrauterin e device 2023 024 [email or web address] 1 [facility]/Pharmacy #[id number], [address], [place], [address], 4 12:54:13 Macrobid 100 mg capsule 2023 024 [facility]/Pharmacy #[id number], [address], [place], [address], 4 12:47:36 Depo-Associate Professor Of Philosophy a 150 mg/mL intramuscul ar syringe 2023 024 [email or web address] 1 Not available 12:47:32 Depo-Associate Professor Of Philosophy a 150 mg/mL intramuscul ar syringe 2023 024 [email or web address] 1 Not available 4 12:47:32 Patient TargetsNo targets recorded. Patient InstructionsNo instructions recorded. Reason for Referral None Reported. Results Created Date Observation Date Name Description Value Unit Range Abnormal Flag Note LastModifiedBy Organization Detail LastModifiedTime 07/24/20 24 07/24/2024 CULTU RE: URINE result report SEE RESULT S BELOW Test: Cultu re: Urine Speci men Sourc e: Urine - Clean Catch Speci men Type: Urine Speci men Date: 07/24 1527 Resul t Date: 07/26 0218 Resul t Statu s: Final resul t Abnor mal: No Resul ting Lab: [facility] [address] [address] Tel: CULTU RE ----- ----- ----- --- Cultu re resul t (>=3 organ isms prese nt) indic ates possi ble conta minat ion. Repea t cultu re if sympt oms indic ate. Not Available [facility] (Lab) [address], [place], [address], 07/26/2024 03:21:39 07/24/2007/24/2024 urina lysis , dipst ick Leukocytes + Not Available [facility] [address], [place], [address], 07/24/2024 15:34:58 07/24/20 24 07/24/2024 urina lysis , dipst ick Protein + Not Available [address], [place], [address], 07/24/2024 15:34:58 07/24/20 24 07/24/2024 urina lysis , dipst ick pH 5 Not Available [address], [place], [address], 07/24/2024 15:34:58 07/24/20 24 07/24/2024 urina lysis , dipst ick Blood +++ Not Available [facility] [place] [address], [place], [address], 07/24/2024 15:34:58 07/24/2007/24/2024 urina lysis , dipst ick Specific [place] 1.030 Not Available [facility] [address], [place], [address], 07/24/2024 15:34:58 07/24/20 24 07/24/2024 urina lysis , dipst ick Ketone + Not Available [address] [address], [place], [address], 07/24/2024 15:34:58 07/24/20 24 07/24/2024 urina lysis , dipst ick Appearance cloudy Not Available [facility] [address], [place], [address], 07/24/2024 15:34:58 07/24/20 24 07/24/2024 urina lysis , dipst ick Color yellow /orang e Not Available [facility] [address], [place], [address], 07/24/2024 15:34:58 08/15/20 24 08/15/2024 CT/GC AND TRICH OMONA S VAGIN SAL (RRNA ), URINE chlamydia trachomatis, PCR Negati ve negati ve Not Available [facility] (Lab) [address], [place], [address], 08/16/2024 13:30:33 08/15/20 24 08/15/2024 CT/GC AND TRICH OMONA S VAGIN SAL (RRNA ), URINE neisseria gonorrhoeae, PCR Negati ve negati ve Not Available [facility] (Lab) [address], [place], [address], 08/16/2024 13:30:33 08/15/20 24 08/15/2024 CT/GC AND TRICH OMONA S VAGIN SAL (RRNA ), URINE trichomonas vaginalis ribosomal RNA (rrna) Negati ve negati ve Not Available [facility] (Lab) [address], [place], [address], 08/16/2024 13:30:33 08/15/20 24 08/15/2024 pregn prema test, urine HCG negati ve Not Available [facility] [address], [place], [address], 08/15/2024 12:52:12 09/14/19 25 09/14/2024 CBC W/DIF F WBC 7.0 10'3/ uL 3.5-10 .5 Not Available [facility] (Lab) [address], [place], [address], 09/15/2024 05:13:04 09/14/19 25 09/14/2024 CBC W/DIF F RBC 4.62 10'6/ uL (based on docume nted legal sex) 3.80-5 .20 Not Available [facility] (Lab) [address], [place], [address], 09/15/2024 05:13:04 09/14/19 25 09/14/2024 CBC W/DIF F HGB 13.5 g/dL (based on docume nted legal sex) 11.6-1 5.4 Not Available [facility] (Lab) [address], [place], [address], 09/15/2024 05:13:04 09/14/19 25 09/14/2024 CBC W/DIF F HCT 39.8 % (based on docume nted legal sex) 34.0-4 5.0 Not Available [facility] (Lab) [address], [place], [address], 09/15/2024 05:13:04 09/14/19 25 09/14/2024 CBC W/DIF F MCV 86.1 fL 80.0-9 9.0 Not Available [facility] (Lab) [address], [place], [address], 09/15/2024 05:13:04 09/14/19 25 09/14/2024 CBC W/DIF F MCH 29.2 pg 27.0-3 4.0 Not Available [facility] (Lab) [address], [place], [address], 09/15/2024 05:13:04 09/14/19 25 09/14/2024 CBC W/DIF F MCHC 33.9 g/dL 32.0-3 5.5 Not Available [facility] (Lab) [address], [place], [address], 09/15/2024 05:13:04 09/14/19 25 09/14/2024 CBC W/DIF F RDW 12.4 % 11.0-1 5.0 Not Available [facility] (Lab) [address], [place], [address], 09/15/2024 05:13:04 09/14/19 25 09/14/2024 CBC W/DIF F plt 262 10'3/ uL 150-40 0 Not Available [facility] (Lab) [address], [place], [address], 09/15/2024 05:13:04 09/14/19 25 09/14/2024 CBC W/DIF F MPV 11.0 fL 8.8-12 .1 Not Available [facility] (Lab) [address], [place], [address], 09/15/2024 05:13:04 09/14/19 25 09/14/2024 CBC W/DIF F neutrophils 54.7 % 34.0-7 3.0 Not Available [facility] (Lab) [address], [place], [address], 09/15/2024 05:13:04 09/14/19 25 09/14/2024 CBC W/DIF F lymphocytes 35.8 % 15.0-5 0.0 Not Available [facility] (Lab) [address], [place], [address], 09/15/2024 05:13:04 09/14/19 25 09/14/2024 CBC W/DIF F monocytes 7.8 % 1.0-15 .0 Not Available [facility] (Lab) [address], [place], [address], 09/15/2024 05:13:04 09/14/19 25 09/14/2024 CBC W/DIF F eosinophils 0.7 % 0.0-8. 0 Not Available [facility] (Lab) [address] [place], [address], 09/15/2024 05:13:04 09/14/19 25 09/14/2024 CBC W/DIF F basophils 0.7 % 0.0-2. 0 Not Available [facility] (Lab) [address], [place], [address], 09/15/2024 05:13:04 09/14/19 25 09/14/2024 CBC W/DIF F immature granulocytes 0.3 % no define d refere nce range Immat ure Granu locyt es (IG) repre sents autom ated enume ratio n of Metam yeloc ytes, Myelo cytes and Promy elocy pollo when IG is < 5%. Blast s are not inclu ded in IG and repor james separ ately if prese nt. Not Available [facility] (Lab) [address], [place], [address], 09/15/2024 05:13:04 09/14/19 25 09/14/2024 CBC W/DIF F absolute neutrophils 3.9 10'3/ uL 1.5-8. 0 Not Available [facility] (Lab) [address], [place], [address], 09/15/2024 05:13:04 09/14/19 25 09/14/2024 CBC W/DIF F absolute lymphocytes 2.5 10'3/ uL 1.0-4. 0 Not Available [facility] (Lab) [address], [place], [address], 09/15/2024 05:13:04 09/14/19 25 09/14/2024 CBC W/DIF F absolute monocytes 0.6 10'3/ uL 0.2-1. 0 Not Available [facility] (Lab) [address], [place], [address], 09/15/2024 05:13:04 09/14/19 25 09/14/2024 CBC W/DIF F absolute eosinophils 0.1 10'3/ uL 0.0-0. 6 Not Available [facility] (Lab) [address], [place], [address], 09/15/2024 05:13:04 09/14/19 25 09/14/2024 CBC W/DIF F absolute basophils 0.1 10'3/ uL 0.0-0. 3 Not Available [facility] (Lab) [address], [place], [address], 09/15/2024 05:13:04 09/14/19 25 09/14/2024 CBC W/DIF F absolute immature granulocytes 0.0 10'3/ uL 0.00-0 .10 Refer ence range s for nonbi nary/ inter sex or unspe cifie d gende r patie nts have not been estab lishe d. Pleas e [facility] for range s estab lishe d for cisge nder patie nts and evalu ate in the clini sudarshan yusef xt of the indiv idual patie nt: https ://la and book. nm.or g/Gen derX Not Available [facility] (Lab) [address], [place], [address], 09/15/2024 05:13:04 09/14/19 25 09/14/2024 CMP(C OMPRE HENSI VE METAB OLIC PANEL ) sodium 138 mmol/ L 133-14 6 Not Available [facility] (Lab) [address] [place], [address], 09/15/2024 05:13:05 09/14/19 25 09/14/2024 CMP(C OMPRE HENSI VE METAB OLIC PANEL ) potassium 3.9 mmol/ L 3.5-5. 1 Not Available [facility] (Lab) [address], [place], [address], 09/15/2024 05:13:05 09/14/19 25 09/14/2024 CMP(C OMPRE HENSI VE METAB OLIC PANEL ) chloride 104 mmol/ L 98-107 Not Available [facility] (Lab) [address] [place], [address], 09/15/2024 05:13:05 09/14/19 25 09/14/2024 CMP(C OMPRE HENSI VE METAB OLIC PANEL ) carbon dioxide 25 mmol/ L 21-31 Not Available [facility] (Lab) [address], [place], [address], 09/15/2024 05:13:05 09/14/19 25 09/14/2024 CMP(C OMPRE HENSI VE METAB OLIC PANEL ) anion gap 9 mmol/ L 4-13 Not Available [facility] (Lab) [address], [place], [address], 09/15/2024 05:13:05 09/14/19 25 09/14/2024 CMP(C OMPRE HENSI VE METAB OLIC PANEL ) blood urea nitrogen 10 mg/dL 7-25 Not Available [facility] (Lab) [address], [place], [address], 09/15/2024 05:13:05 09/14/19 25 09/14/2024 CMP(C OMPRE HENSI VE METAB OLIC PANEL ) creatinine 0.93 mg/dL 0.60-1 .30 Not Available [facility] (Lab) [address], [place], [address], 09/15/2024 05:13:05 09/14/19 25 09/14/2024 CMP(C OMPRE HENSI VE METAB OLIC PANEL ) egfrcr (CKD-epi 2020) 78 mL/mi n/1.7 3_m2 >=60 Not Available [facility] (Lab) [address], [place], [address], 09/15/2024 05:13:05 09/14/1909/14/2024 CMP(C OMPRE HENSI VE METAB OLIC PANEL ) calcium 9.6 mg/dL 8.3-10 .5 Not Available [facility] (Lab) [address], [place], [address], 09/15/2024 05:13:05 09/14/19 09/14/2024 CMP(C OMPRE HENSI VE METAB OLIC PANEL ) glucose 87 mg/dL 70-100 Not Available [facility] (Lab) [address], [place], [address], 09/15/2024 05:13:05 09/14/1909/14/2024 CMP(C OMPRE HENSI VE METAB OLIC PANEL ) protein, total 7.3 g/dL 6.4-8. 3 Not Available [facility] (Lab) [address], [place], [address], 09/15/2024 05:13:05 09/14/1909/14/2024 CMP(C OMPRE HENSI VE METAB OLIC PANEL ) albumin 4.7 g/dL 3.5-5. 0 Not Available [facility] (Lab) [address], [place], [address], 09/15/2024 05:13:05 09/14/1909/14/2024 CMP(C OMPRE HENSI VE METAB OLIC PANEL ) ALT 15 units /L 9-43 Not Available [facility] (Lab) [address], [place], [address], 09/15/2024 05:13:05 09/14/19 25 09/14/2024 CMP(C OMPRE HENSI VE METAB OLIC PANEL ) alkaline phosphatase 57 units /L 34-104 Not Available [facility] (Lab) [address] [place], [address], 09/15/2024 05:13:05 09/14/19 25 09/14/2024 CMP(C OMPRE HENSI VE METAB OLIC PANEL ) AST 16 units /L 13-39 Not Available [facility] (Lab) [address], [place], [address], 09/15/2024 05:13:05 09/14/19 25 09/14/2024 CMP(C OMPRE HENSI VE METAB OLIC PANEL ) bilirubin, total 0.5 mg/dL 0.2-1. 2 Not Available [facility] (Lab) [address] [place], [address], 09/15/2024 05:13:05 09/14/19 25 09/14/2024 LIPID PANEL ,AMA (LDL- CALC) total cholesterol 175 mg/dL 0-199 Not Available [facility] (Lab) [address] [place], [address], 09/15/2024 05:13:05 09/14/19 25 09/14/2024 LIPID PANEL ,AMA (LDL- CALC) triglyceride s 47 mg/dL 0-150 NCEP Refer ence Value s for Trigl yceri cindy: Deepti l: <150 mg/dL Borde rline High: 150 - 199 mg/dL High: 200 - 499 mg/dL Very High: >/= 500 mg/dL Not Available [facility] (Lab) [address] [place], [address], 09/15/2024 05:13:05 09/14/1909/14/2024 LIPID PANEL ,AMA (LDL- CALC) HDL cholesterol 53 mg/dL >40 Not Available [facility] (Lab) [address] [place], [address], 09/15/2024 05:13:05 09/14/19 25 09/14/2024 LIPID PANEL ,AMA (LDL- CALC) LDL cholesterol 108 mg/dL 0-99 high Cutof f value s recom liliana d by the Mark nal [facility] stero l Educa tion Progr am: ZAIN ABLE: [facility] stero l <200 mg/dL LDL <100 mg/dL BORDE RLINE : [facility] stero l 200-2 39 mg/dL LDL 101-1 59 mg/dL HIGHE R RISK: Aurora stero l >240 mg/dL LDL >160 mg/dL , HDL <40 mg/dL Not Available [facility] (Lab) [address] [place], [address], 09/15/2024 05:13:05 09/14/19 25 09/14/2024 LIPID PANEL ,AMA (LDL- CALC) non-HDL cholesterol 122 mg/dL no refere nce range A reaso nable goal for non-H DL aurora stero l is one that is 30 mg/dL highe r than the LDL aurora stero l goal. Not Available [facility] (Lab) [address], [place], [address], 09/15/2024 05:13:05 09/14/1909/14/2024 LIPID PANEL ,AMA (LDL- CALC) chol/HDL ratio 3.3 . 0.0-5. 0 On December 21, 2022, [facility] labor atori es montesinos ed the equat ion for calcu latin g estim ated low-d ensit y lipop rotei n-cho leste rol (LDL- C) from the Fried breana equat ion to the Anita n/Hop kins equat ion. This new equat ion is only valid for lipid panel s with trigl yceri cindy < 400 mg/dL . Studi es have demon strat ed that this new equat ion will impro ve the accur acy of LDL-C , espec ially in scena blas when LDL-C vickey ntrat ions are relat ively low (< 100 mg/dL ), trigl yceri cindy are eleva james, or patie nt is non-f astin g. Refer ences : - Anita rivers, Fran Campos, Jameel Morales , [facility] rafael ramirez, Jared Freeman, Jared de anda, Panda baldwin , and Francis Lynn . 2013. Comp ariso n of a Novel Metho d vs the Fried breana Equat ion for Estim ating Low-D ensit y Lipop rotei n [facility] stero l Level s from the Stand arthur Lipid Profi le. ALFREDO: The Journ al of the Ameri can Medic al Assoc iatio n 310 (19): 2060- . - Lyric reed V, Kassie J, Albino reed A, Isidro M, Rubi robbins R, Cate reed E, Justin baldwin RS, Shane SR, Anita n SS. Fast ing Versu s Nonfa sting and Low-D ensit y Lipop rotei n [facility] stero l Accur acy. Circu gail n. 2017Aug 30;137 (1):1 0-19. Not Available [facility] (Lab) [address], [place], [address], 09/15/2024 05:13:05 09/14/19 25 09/14/2024 TSH, REFLE X FREE T4 TSH 2.58 uIU/m L 0.30-5 .33 Not Available [facility] (Lab) [address], [place], [address], 09/15/2024 05:13:05 09/14/19 25 09/14/2024 VITAM IN D, 25-OH (TOTA L D2/D3 ) vitamin D, 25-hydroxy, total 30.7 NG/mL 30.0-1 00.0 Sugge stive of Defic iency : <20 ng/mL Sugge stive of Insuf ficie ncy: 20-29 ng/mL Sugge stive of Suffi cienc y: 30-10 0 ng/mL Sugge stive of Toxic ity: >150 ng/mL Not Available [facility] (Lab) [address], [place], [address], 09/15/2024 05:13:06 09/14/19 25 09/14/2024 HEMOG LOBIN A1C hemoglobin A1C 5.0 % 4.0-5. 6 The Ameri can Diabe pollo Assoc iatio n recom mends that a prima ry goal of thera py perry d be a HBA1C of < 7% and that physi cians shoul d reeva luate the treat ment regim en in patie nts with HBA1C value s consi stent ly > 8%. <5.7% Deepti l 5.7 - 6.4% Incre ased risk for diabe pollo >=6.5 % Diagn ostic of diabe pollo <7.0% Goal of thera py >8.0% Actio n sugge sted Not Available [facility] (Lab) [address], [place], [address], 09/15/2024 05:13:06 09/25/1909/25/2024 WOMEN 'S HEALT H SWAB, JAZ eugene species, tma Negati ve negati ve Not Available [facility] (Lab) [address] [place], [address], 09/26/2024 10:56:47 09/25/1909/25/2024 WOMEN 'S HEALT H SWAB, JAZ eugene glabrata, tma Negati ve negati ve Not Available [facility] (Lab) [address], [place], [address], 09/26/2024 10:56:47 09/25/1909/25/2024 WOMEN 'S HEALT H SWAB, JAZ trichomonas vaginalis, tma Negati ve negati ve This assay tests for and diffe renti rebecca chacko en Yvrose da glabr mert, the Yvrose da speci es group (C. albic ans, C. tropi calis , C. parap jocy is, C. dubli ni is), and Trich omona s vagin sal by Trans cript ion-M ediat ed Ampli ficat ion (TMA) . Not Available [facility] (Lab) [address] [place], [address], 09/26/2024 10:56:47 09/25/1909/25/2024 WOMEN 'S HEALT H SWAB, JAZ bacterial vaginosis (bv), tma Negati ve negati ve This test detec ts ribos omal RNA from bacte braydon assoc iated with bacte rial vagin osis (BV), inclu ding Lacto bacil anu (L. gasse ri, L. crisp atus and L. jense abhishek), Gardn erell a vagin sal, and Atopo bium vagin ae by Trans cript ion-M ediat ed Ampli ficat ion (TMA) . A singl e quali tativ e resul t is repor james based on instr ument softw are to deter mine BV posit sara or negat sara statu s. Not Available [facility] (Lab) [address], [place], [address], 09/26/2024 10:56:47 Result Notes None recorded. Problems Name Problem SNOMED Code Status Onset Date Resolution Date Notes Provider Name and Address Organization Details Recorded Time Pain in female genitali a Completed 201807/13/2021 Dysmenor gisel;Rec orded Elsewher e: No [facility] our[facility]: EHR Crawler Tractor Operator peg: N Practi ce ID: 0001 Samuel lable Time: 09:45:00 AM Nathalia [facility] 16:35:21 Menopaus al symptom [id number] Completed 201407/13/2021 Hot flashes; Recorded Elsewher e: No [facility] S ource: EHR Crawler Tractor Operator peg: N Practi ce ID: 0001 Samuel lable Time: 08:30:00 AM Nathalia [facility] 16:35:19 Abnormal uterine bleeding [id number] 100 Completed 201807/13/2021 Other specifie d abnormal uterine and vaginal bleeding ;Recorde d Elsewher e: No [facility] S ource: EHR Crawler Tractor Operator peg: N Adanti ce ID: 0001 Samuel lable Time: 08:45:00 AM Nathalia [facility] 16:35:04 Finding of pattern of menstrua l cycle [id number] Completed 201807/13/2021 Menometr orrhagia ;Recorde d Elsewher e: No Locat ion: [facility] S ource: EHR Crawler Tractor Operator peg: N Practi ce ID: 0001 Samuel lable Time: 11:00:00 AM Nathalia [facility] 16:35:17 Clinical finding Completed 201807/13/2021 Encounte r for initial prescrip tion of injectab le contrace ptive;Re corded Elsewher e: No Locat ion: Marina robbins [facility] S ource: EHR Crawler Tractor Operator peg: N Macey ce ID: 0001 Samuel lable Time: 10:45:00 AM Nathalia [facility] 16:35:08 Screenin g for malignan t neoplasm of cervix Completed 201307/13/2021 Screenin g for malignan t neoplasm s of the cervix;R ecorded Elsewher e: No [facility]: EHR Crawler Tractor Operator peg: Sariah Choudhury ce ID: 0001 Samuel lable Time: 08:30:00 AM Nathalia [facility] 16:35:27 Clinical finding Completed 201907/13/2021 Encounte r for surveill ance of injectab le contrace ptive;Pr actice ID: 0001 Nathalia [facility] 16:35:09 Abdomina l pain [id number] Completed 201407/13/2021 Suprapub ic abdomina l pain;Rec orded Elsewher e: No Locat ion: [facility] Sariah Choudhury ce ID: 0001 Samuel lable Time: 04:30:00 PM Nathalia [facility] 16:35:03 Pelvic and perineal pain [id number] Completed 201807/13/2021 Pelvic and perineal pain;Rec orded Elsewher e: No Locat ion: Marina robbins [facility] S ource: EHR Crawler Tractor Operator peg: Sariah Choudhury ce ID: 0001 Samuel lable Time: 08:45:00 AM Nathalia [facility] 16:35:23 Female genital organ symptoms [id number] Completed 201307/13/2021 Unspecif ied symptom associat ed with female genital organs;R ecorded Elsewher e: No Locat ion: [facility] S ource: EHR Crawler Tractor Operator peg: N Practi ce ID: 0001 Samuel lable Time: 04:00:00 PM Nathalia [facility] 16:35:12 Pure hypercho lesterol emia [id number] Completed 201307/13/2021 Elevated choleste rol;Arthur rded Elsewher e: No Locat ion: [facility] S ource: EHR Crawler Tractor Operator peg: N Practi ce ID: 0001 Samuel lable Time: 04:00:00 PM Nathalia [facility] 16:35:[address] Concept Completed 201807/13/2021 Encounte r for general adult medical exam with abnormal finding; Recorded Elsewher e: No Locat ion: [facility] S ource: EHR Crawler Tractor Operator peg: N Practi ce ID: 0001 Samuel lable Time: 09:45:00 AM Nathalia [facility] 16:35:25 Adult health examinat ion Completed 201307/13/2021 Routine general medical examinat ion at a health care facility ;Practic e ID: 0001 Nathalia [facility] 16:35:[address] Concept Completed 201407/13/2021 Encntr for general adult medical exam w/o abnormal findings ;Recorde d Elsewher e: No Locat ion: [facility] S ource: EHR Crawler Tractor Operator peg: N Practi ce ID: 0001 Samuel lable Time: 03:15:00 PM Nathalia [facility] 16:35:29 Bleeding [id number] Completed 201807/13/2021 Abnormal uterine bleeding ;Recorde d Elsewher e: No Locat ion: [facility] S ource: EHR Crawler Tractor Operator peg: N Practi ce ID: 0001 Samuel lable Time: 09:45:00 AM [facility] 16:35:15 Speciali zed medical examinat ion Completed 201307/13/2021 Routine gynecolo gical examinat ion;Prac joselito ID: 0001 Nathalia [facility] 16:35:32 Menstrua tion finding Completed 201307/13/2021 Menorrha lela Excessiv e Menstrua tion;Pra ctice ID: 0001 Nathalia [facility] 16:35:[address] Concept Completed 201407/13/2021 Encntr for data input clerk exam (general ) (routine ) w/o abn findings ;Practic e ID: 0001 Nathalia [facility] 16:35:30 Uses combined oral contrace ption [id number] Completed 201807/13/2021 Encounte r for initial prescrip tion of contrace ptive pills;Pr actice ID: [id number] Nathalia Alvarez [facility] 16:35:11 Problem Notes None recorded. Procedures Surgical History Date Name Laterality Status Provider Name and Address Organization Details Recorded Time 024 IUD Insertion completed LAMONT Castañeda [address], [place], [id number], [place] [facility] 08/15/2024 13:26:23 022 procedure on neck completed Linda Astudillo [facility] 08/15/2024 12:51:11 021 procedure on wrist completed Linda Astudillo [facility] 08/15/2024 12:50:30 020 completed Nathalia Alvarez [facility] 07/13/2021 16:36:08 020 Date of Last Pap Smear completed Pinky Dunnpower [facility] 09/27/2022 12:24:59 019 surgical manipulation of wrist joint completed [facility] 08/15/2024 12:50:18 007 procedure on knee completed [facility] 08/15/2024 12:50:02 007 cholecystectomy completed [facility] 08/15/2024 12:49:35 005 procedure on knee completed [facility] 08/15/2024 12:49:58 003 operative procedure on knee completed [facility] 08/15/2024 12:49:43 Imaging Results None recorded. Procedure Notes None recorded. Medical Equipment None Reported. Allergies Allergen ID Allergen Name Allergen Category Reaction Reaction Severity Criticality Documentation Date Start Date Code Code System Note Provider Name and Address Organization Details Recorded Time 190 oxycodone medicatio n Not available Not available Not available 04/29/2020 7804 RxNorm Belgica Gonzalez [facility] 0 14:25:59 411 acetamino phen medicatio n Not available Not available Not available 12/26/2019 161 RxNorm [facility] 0 15:33:40 412 codeine medicatio n Not available Not available Not available 12/26/2019 2670 RxNorm [facility] 0 15:33:47 413 hydrocodo ne Not available Not available Not available Not available 12/26/2019 5489 RxNorm [facility] 0 15:33:56 Medications Name Sig Start Date Stop Date Status Note LastModified by Organization Details LastModified Time blood pressu solution kit 06/11 completed Not Available Not Available Not Available amoxicill in 500 mg capsule TAKE 1 CAPSULE BY MOUTH TWICE DAILY 09/27 completed Not Available Not Available Not Available Mirena 21 mcg/24 hr (up to 8 years) 52 mg intrauter ine device Take 1 device by intraute rine route. 2023 active mirena inserted lot [id number] Exp 09/2026 Not Available Not Available Not Available prednison e 10 mg tablet TAKE 1 TAB 3 TIMES DAILY X3 DAYS, 1 TAB TWICE DAILY X2 DAYS, THEN 1 TAB ONCE DAILY X1 DAY 06/11 completed Not Available Not Available Not Available fluconazo le 150 mg tablet Take 1 mg by oral route. 01/02 completed Not Available Not Available Not Available benzonata te 200 mg capsule TAKE 1 CAPSULE BY MOUTH THREE TIMES A DAY 05/16 completed Not Available Not Available Not Available sumatript an 25 mg tablet 09/27 completed Not Available Not Available Not Available metronida zole 0.75 % (37.5 mg/5 gram) vaginal gel Insert 1 applicat orful every day by vaginal route at bedtime for 5 days. 2024 active Not Available Not Available Not Avai lable ondansetr on HCl 4 mg tablet 09/27 completed Not Available Not Available Not Available clobetaso l 0.05 % topical cream active Not Available Not Available Not Available valacyclo vir 500 mg tablet TAKE 1 CAPLET BY MOUTH ONCE DAILY FOR 3 DAYS 07/24 completed Not Available Not Available Not Available ciproflox acin 500 mg tablet TAKE 1 TABLET BY MOUTH TWICE DAILY 09/27 completed Not Available Not Available Not Available tramadol 50 mg tablet TAKE 1 TABLET BY MOUTH 3 TIMES A DAY NEEDED 07/24 completed Not Available Not Available Not Available triamcino lone acetonide 0.1 % topical cream APPLY THIN COAT TO AFFECTED AREA TWICE A DAY 07/24 completed Not Available Not Available Not Available Macrobid 100 mg capsule Take 1 capsule every 12 hours by oral route for 7 days. 08/15 completed Not Available Not Available Not Available Microgest in FE 09/17 (28) 1 mg-20 mcg (21)/75 mg (7) tablet take 1 tablet by oral route every day 07/02 completed Prescrib ed Elsewher e: No Locat ion: [facility] odify By: [email or web address] En counter DateTime : 05/15/20 14 04:00:00 PM Not Available Not Available Not Available methocarb josh 750 mg tablet 07/24 completed Not Available Not Available Not Available meclizine 25 mg tablet 07/24 completed Not Available Not Available Not Available diazepam 2 mg tablet 07/24 completed Not Available Not Available Not Available benzonata te 100 mg capsule TAKE 1 CAPSULE BY MOUTH TWICE DAILY NEEDED FOR COUGH 09/27 completed Not Available Not Available Not Available cephalexi n 500 mg capsule TAKE 1 CAPSULE BY MOUTH EVERY 8 HOURS FOR 10 DAYS 01/02 completed Not Available Not Available Not Available triamcino lone acetonide 0.1 % topical ointment APPLY A THIN LAYER TO THE AFFECTED AREA(S) BY TOPICAL ROUTE 2 TIMES PER DAY PRN 09/27 completed Not Available Not Available Not Available Neurontin 100 mg capsule take 1 capsule by oral route 3 times every day 07/02 completed Prescrib [facility] e: No Locat ion: [facility] odify By: [email or web address] En counter DateTime : 01/28/20 15 04:30:00 PM Not Available Not Available Not Available dexametha sone 4 mg tablet TAKE 1 TABLET BY MOUTH EVERY DAY 07/24 completed Not Available Not Available Not Available indometha kelton 25 mg capsule 07/24 completed Not Available Not Available Not Available diclofena c sodium 75 mg tablet,de layed release TAKE 1 TABLET TWICE A DAY BY ORAL ROUTE NEEDED. active Not Available Not Available No t Available hydroxyzi ne HCl 25 mg tablet TAKE 1-2 TABLETS BY MOUTH AT BEDTIME NEEDED active Not Available Not Available No t Available mupirocin 2 % topical ointment APPLY 1 APPLICAT ION ONTO THE AFFECTED AREA(S) ON THE SKIN TWICE DAILY 07/24 completed Not Available Not Available Not Available methylpre dnisolone 4 mg tablets in a dose pack TAKE 6 TABLETS ON DAY 1 DIRECTED ON PACKAGE AND DECREASE BY 1 TAB EACH DAY FOR A TOTAL OF 6 DAYS 06/11 completed Not Available Not Available Not Available albuterol sulfate HFA 90 mcg/actua tion aerosol inhaler INHALE 1 PUFF BY MOUTH EVERY 6 HOURS NEEDED FOR SHORTNES S OR BREATH OR WHEEZING . 08/15 completed Not Available Not Available Not Available Prozac 10 mg capsule take 1 capsule by oral route every day 01/27 completed Prescrib ed Elsewher e: No Locat ion: [facility] odify By: aron steve DateTime : 12/18/19 15 08:30:00 AM Not Available Not Available Not Available Vitamin D2 1,250 mcg (50,000 unit) capsule take 1 capsule by oral route every week 09/20 completed Prescrib ed Elsewher e: No Locat ion: [facility] odify By: [email or web address] Larios r DateTime : 04/30/20 14 12:05:29 PM Not Available Not Available Not Available albuterol sulfate 2 mg tablet take 1 tablet by oral route 3 times every day 09/20 completed Prescrib ed Elsewher e: Yes Loca tion: [facility] odify By: dorian Larios r DateTime : 04/22/20 14 04:30:00 PM Not Available Not Available Not Available clobetaso l 0.05 % scalp solution APPLY TO THE AFFECTED SCALP AREA BY TOPICAL ROUTE 2 TIMES PER DAY IN THE MORNING AND EVENING active Not Available Not Available No t Available medroxypr ogesteron e 150 mg/mL intramusc ular suspensio n INJECT 1 MILLILIT ER INTRAMUS CULARLY EVERY 3 MONTHS 06/11 completed Not Available Not Available Not Available naproxen 500 mg tablet TAKE 1 TABLET BY MOUTH TWICE DAILY FOR 10 DAYS 07/24 completed Not Available Not Available Not Available amoxicill in 875 mg-potass ium clavulana te 125 mg tablet TAKE 1 TABLET BY MOUTH EVERY 12 HOURS FOR 7 DAYS 05/16 completed Not Available Not Available Not Available Depo-Prov era 150 mg/mL intramusc ular syringe INJECT ONE MILLILIT ERS INTRAMUS CULARLY EVERY 3 MONTHS 08/15 completed Patient is here for Depo (supplie d by patient from pharmacy ) injectio n given into right arm lot [id number] Exp 07/28/20 27 and patient is next due August 27, 2024-Sep 10, 2024 Not Available Not Available Not Available escitalop jameel 10 mg tablet active Not Available Not Available Not Available cyclobenz aprine 5 mg tablet 05/08 completed Not Available Not Available Not Available Symbicort 160 mcg-4.5 mcg/actua tion HFA aerosol inhaler inhale 2 puff by inhalati on route 2 times every day in the morning and evening 09/20 completed Prescrib ed Elsewher e: Yes Loca tion: [facility] odify By: dorian Larios DateTime : 04/10/20 14 08:30:00 AM Not Available Not Available Not Available lidocaine 5 % topical ointment APPLY TO AFFECTED AREA(S) BY TOPICAL ROUTE 1-4 TIMES DAILY NEEDED 01/02 completed Not Available Not Available Not Available Minastrin 24 Fe 1 mg-20 mcg (24)/75 mg (4) chewable tablet chew 1 tablet by oral route every day 03/26 completed Prescrib ed Elsewher e: No Locat ion: [facility] odify By: [email or web address] Encount er DateTime : 10/17/19 11:00:00 AM Not Available Not Available Not Available Nurtec ODT 75 mg disintegr ating tablet 07/24 completed Not Available Not Available Not Available graham sears (weight loss) active Not Available Not Available Not Available Vitals Date Recorded Body height Body mass index (BMI) Body weight Systolic blood pressure Diastolic blood pressure Provider Name and Address Organization Details Last Updated DateTime 09/25/2024 165.1 cm 32.7 kg/m2 49912.98 g 117 mm[Hg] 79 mm[Hg] Kassandra Tobin [facility] 5 11:45:46 Date Recorded Body height Body mass index (BMI) Body weight Systolic blood pressure Diastolic blood pressure Provider Name and Address Organization Details Last Updated DateTime 06/11/2024 165.1 cm 33.9 kg/m2 05766.84 g 120 mm[Hg] 81 mm[Hg] Linda Astudillo [facility] 4 12:34:18 Date Recorded Body height Body mass index (BMI) Body weight Systolic blood pressure Diastolic blood pressure Provider Name and Address Organization Details Last Updated DateTime 07/24/2024 165.1 cm 34.1 kg/m2 27356.44 g 120 mm[Hg] 81 mm[Hg] Eden Chaudharier [facility] 4 12:48:07 Date Recorded Body height Body mass index (BMI) Body weight Systolic blood pressure Diastolic blood pressure Provider Name and Address Organization Details Last Updated DateTime 08/15/2024 165.1 cm 33.3 kg/m2 03676.47 g 126 mm[Hg] 85 mm[Hg] Linda Astudillo [facility] 4 12:47:21 Social History Question Answer Notes LastModified by Organizat ion Details LastModified Time Tobacco Smoking Status Never Smoker [facility]/01/2023 09:18:09 Do You Have An Advance Directive? No Information n ot available 09/03/2021 Are You Blind Or Do You Have Difficulty Seeing? No Information n ot available 07/13/2021 What Is Your Level Of Caffeine Consumption? Occasional Information not available 09/03/2021 How Much Tobacco Do You Chew? None Information not available 09/03/2021 In The 14 Days Before Symptom Onset, Have You Had Close Contact With A Laboratory-confirm ed COVID-19 While That Case Was Ill? No Information n ot available 09/03/2021 In The 14 Days Before Symptom Onset, Have You Had Close Contact With A Person Who Is Under Investigation For COVID-19 While That Person Was Ill? No Information not available 09/03/2021 Have You Been To An Area Known To Be High Risk For COVID-19? No Information not available 06/11/2024 Are You Deaf Or Do You Have Serious Difficulty Hearing? No Information not available 07/13/2021 What Type Of Diet Are You Following? REGULAR Information n ot available 07/13/2021 What Is The Highest Grade Or Level Of School You Have Completed Or The Highest Degree You Have Received? [id number] Information not available 09/03/2021 Are There Any Guns Present In Your Home? Yes Information not available 09/03/2021 Do You Use Your Seat Belt Or Car Seat Routinely? Yes Information not available 07/13/2021 Do You Have Smoke And Carbon Monoxide Detectors In Your Home? Yes Information not available 07/13/2021 How Much Tobacco Do You Smoke? No Information not available 09/03/2021 Do You Use Sunscreen Routinely? No Information not available 09/03/2021 Have You Used IV Drugs? No Information not available 09/03/2021 Do You Have Difficulty Walking Or Climbing Stairs? No Information not available 08/01/2023 Sex: Unknown Functional Status Question Answer Note LastModified by Organizat ion Details LastModified Time Do you use any illicit or recreational drugs? No Information not available 07/13/2021 What is your level of alcohol consumption? None Information not available 09/03/2021 Are you able to walk? YESWOREST Information not available 07/13/2021 Are you able to care for yourself? 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 No [email or web address] Information not available 08/01/2023 What is your exercise level? Heavy Information not available 09/03/2021 Mental Status Question Answer Note LastModified by Organization D etails LastModified Time Do you feel stressed (tense, restless, nervous, or anxious, or unable to sleep at night)? [id number] Information not available 09/03/2021 Family History Relationship Description Onset Age of this Age Resolved Age Notes LastModified by Organization Details LastModified Time Mother Anemia [email or web address] Not available 12/26/2019 15:34:36 Maternal Grandmother Asthma [email or web address] Not available 15:34:43 Maternal Grandfather Malignant neoplasm of lung [email or web address] Not available 12/25 15:34:57 Maternal Aunt Malignant tumor of breast [email or web address] Not available 12/25 15:35:08 Medical History Condition Response Allergies (Food, seasonal, environmental ) Y Other N Breast Cancer N Drug/Latex Allergies/Reactions N Blood Transfusion N Dermatologic Disorders N Lung Disease N Defects or Inherited Disease N Breast Problem N Gestational Diabetes N Hematologic disorders N Anesthesia Complications N History of STI N Deep Vein Thrombosis N Polycystic ovary syndrome N Anxiety Disorder N Autoimmune disease N Arthritis N Infertility N Polyps N Acid Reflux (GERD) N History of abnormal pap N Cancer N Stroke N Varicosities N Neurologic/Epilepsy Y Endometriosis N High Cholesterol N Headaches Y Fibromyalgia N Kidney Disease N Heart Problems N Kidney or Bladder Problems N Thyroid Problems N GI Problems N Eating Disorder N Anemia N Art (IVF or FET) N Psychiatric Illness N Ovarian Cancer N Diabetes N Pulmonary (TB, Asthma) N Hepatitis/Liver Disease N No Past Medical History N Eczema N Urinary Tract Infection N Abuse/Domestic Violence N Asthma Y Trauma/Violence N Depression/ depression N Heart Disease N Pre-Eclampsia N Hypertension N Osteoporosis N Thrombophilias N Gynecological History Statement/Question Response Flow Heavy Date of Last Mammogram STIs/STDs N HPV Vaccine N 05/20/2020 Current Control Method IUD Date of Last Colonoscopy Sexually Active? N Menses Monthly N Date of DEXA bone scan Age of first menstrual cycle 17 Date of Last Pap Smear 05/08/2020 Sexual Problems? N LMP Approximate Obstetrics History GPAL:G 0 P 0 0 0 0 Type Value Living 0 Total 0 Past Encounters Encounter ID Performer Location Encounter Start Date Encounter Closed Date Diagnosis/Indication Diagnosis SNOMED-CT Code Diagnosis ICD10 Code Diagnosis Note [id number] Martinez Antoine MD [facility] [address] [address] 02/21/2020 16:41:45 02/22/2020 11:23:22 Contraception care management 730021182 Z30.9 [id number] Renée Lim CNM [facility] [address],[place] [address] 05/08/2020 09:21:56 05/27/2020 16:33:06 Contraception care management 306073172 Z30.9 Surveillan ce of depot contraception done 0776338386 9104 Z30.42 Recommende d dexa d/t use of depo provera. Pt agreeable. Gynecologi c examination 90953661 Z01.419 Take Calcium with Vitamin D 1200mg daily if not receiving in daily diet. It is strongly advised to have an annual flu shot and up can obtain at most pharmacies . If you have not had a TDap shot in the last 10 years you should obtain one as well. Discussed with patient & provided with informatio n regarding Gardisil vaccine to prevent the 4 strains for HPV that cause cervical cancer if under age 26. Encourage safe sexual practices, to use condoms and limit partners if not already in a monogamous relationsh ip. Do monthly self breast exams. Have mammogram yearly or every other year depending on family history. BRCA testing is now available for patients with strong genetic history of female cancer. If interested contact the office. Engage in daily exercise of low impact aerobic exercise 45-60 minutes 4-5 times weekly. Avoid tobacco and illicit drugs as well as using moderation with alcohol intake less than 1-2 8 oz beverages daily. This lifestyle behavior pattern will lead to less health conditions and longer life span. If BMI greater than 25 weight watchers or dietary consult advised. Patient received above instructio ns, and questions have been answered. If you have any questions please call or respond to this email. Patient was made aware of the patient portal and may obtain a paper copy of today's plan if desired. Vaginitis 13700168 N76.0 Discussed use of mild soap like dove or ivory, cotton underwear w/out dye, hypoallerg enic detergent, wipe from front to back, avoid tub baths, keep perineum clean and dry, d/c use of baby wipes. Encouraged daily intake of yogurt or womens health probiotic. Internal and external affirm collected. Will send out diflucan per patient request. [id number] Bertha Fisher CNM [facility] [address] [address] 05/28/2020 09:36:20 05/28/2020 12:46:46 Vaginitis 89339454 N76.0 Candidiasis of vagina 72 069527 B37.9 [id number] Martinez Antoine MD [facility] [address],[place] [address] 07/28/2020 09:15:41 07/28/2020 23:44:23 Contraception care management 498305159 Z30.9 [id number] Martinez Antoine MD [facility] [address],[place] [address] 10/13/2020 09:31:01 10/15/2020 16:25:13 Contraception care management 562072592 Z30.9 [id number] Martinez Antoine MD [facility] [address],[place] [address] 01/02/2021 09:26:40 01/06/2021 09:44:54 Contraception care management 282887742 Z30.9 [id number] Dilcia Dc MD [facility] [address],[place] [address] 03/25/2021 14:55:27 03/26/2021 15:08:51 Contraception care management 153509859 Z30.9 [id number] Martinez Antoine MD [facility] [address],[place] [address] 06/12/2021 09:19:08 06/15/2021 11:43:12 Contraception care management 757597575 Z30.9 [id number] Giovana Martinez [facility] [address],[place] [address] 09/03/2021 11:18:42 09/03/2021 12:16:42 Gynecologic examination 27273749 Z01.419 Suggested Calcium with Vitamin D 1200-1500m g daily. Patient advised to get an annual flu shot in the fall and she could obtain at [facility] or [facility] care clinic. Also to obtain TDap vaccinatio n if you have not had one in the last 10 years. Recommend yearly mammograms . Encouraged monthly self breast exams. Encourage safe sexual practices, to use condoms and limit partners if not already in a monogamous relationsh ip. Engage in daily exercise of low impact aerobic exercise 45-60 minutes 4-5 times weekly. Avoid tobacco and illicit drugs as well as using moderation with alcohol intake less than 1-2 8 oz beverages daily. This lifestyle behavior pattern will lead to less health conditions and longer life span. If BMI greater than 25 weight watchers or dietary consult advised. All questions have been answered. Patient appears to understand informatio n, but if you have any questions please call or respond to this email. Pap/hpv q3-5yrs per asccp unless otherwise indicated. Mammo ordered-wi ll mail since printer is not working today.Decl ined need std screenNot SA for >10yrsGene tic screen discussed Screening mammography 24 577702 Z12.31 Contracept ion care management 021102532 Z30.9 Skin irritation 58121392 7 L30.9 She will contact her PCP regarding her GI Issues she was having last week that has continued to cause random diarrhea which is irritating her anal skin. Suggested using solid crisco on toilet tissue after having a BM to decrease irritation in this area.May use ointment sparingly as well. [id number] Giovana Martinez , [facility] [address],[place] [address] 11/23/2021 09:26:47 11/24/2021 16:16:09 Contraception care management 683074040 Z30.9 [id number] Giovana Martinez [facility] [address],[place] [address] 02/08/2022 14:44:54 02/08/2022 15:05:44 Contraception care management 595475245 Z30.9 [id number] Giovana Martinez [facility] [address] [place] [address] 04/26/2022 09:59:18 04/27/2022 16:16:39 Contraception care management 209142679 Z30.9 [id number] Giovana Martinez [facility] [address],[place] [address] 07/12/2022 09:50:02 07/12/2022 10:07:23 Contraception care management 308784370 Z30.9 [id number] LAMONT Castañeda [facility] [address],[facility] [place] [address] 09/27/2022 12:01:52 09/27/2022 13:53:11 Screening for malignant neoplasm of breast 576104992 Z12.39 Contracept ion care management 571003402 Z30.9 Gynecologi c examination 74366616 Z01.419 Suggested Calcium with Vitamin D 1200-1500m g daily. Patient advised to get an annual flu shot in the fall and she could obtain at [facility] or [facility] clinic. Also to obtain TDap vaccinatio n if you have not had one in the last 10 years. Recommend yearly mammograms . Encouraged monthly self breast exams. Encourage safe sexual practices, to use condoms and limit partners if not already in a monogamous relationsh ip. Engage in daily exercise of low impact aerobic exercise 45-60 minutes 4-5 times weekly. Avoid tobacco and illicit drugs as well as using moderation with alcohol intake less than 1-2 8 oz beverages daily. This lifestyle behavior pattern will lead to less health conditions and longer life span. If BMI greater than 25 weight watchers or dietary consult advised. All questions have been answered. Patient appears to understand informatio n, but if you have any questions please call or respond to this email. WWEBC - DMPAHappy with this methodDeni es hx of DVT/PE, HTN, stroke/UT, cancer, liver diseaseR/B of DMPA discussed (including risk of bone loss and weight gain)Refil ls sent x 12 monthsDexa in 2019 - normalNo hx of abnormal papsLast pap 2019 - normalPati ent desires Q5 year paps - next pap due 2024 unless otherwise indicatedS TI testing declinedMa mmogram order givenGenet ic testing discussedU TD with PCP for routine labsRTC in 1 year for WWE or sooner if needed [id number] LAMONT Castañeda [facility] [address],[place] [address] 12/13/2022 09:26:44 12/13/2022 10:31:18 Contraception care 409098231 Z30.40 [id number] LAMONT Castañeda [facility] [address],[place] [address] 02/28/2023 09:20:50 02/28/2023 12:07:38 Contraception care management 822315290 Z30.9 [id number] Lili Montiel [facility] [address],[place] [address] 05/16/2023 09:29:26 05/16/2023 10:05:15 Contraception care 021331732 Z30.40 [id number] Lili Montiel [facility] [address],[place] [address] 08/01/2023 09:17:51 08/02/2023 09:05:20 Contraception care management [id number] Z30.9 [id number] Lili Montiel [facility] [address],[place] [address] 01/09/2024 09:18:25 01/09/2024 12:59:06 Contraception care management 031330701 Z30.9 [id number] Lili Montiel [facility] [address],[place] [address] 03/26/2024 09:25:19 03/26/2024 09:59:32 Contraception care management [id number] Z30.9 [id number] Martinez Antoine MD [facility] [address],[place] [address] 06/11/2024 09:54:22 06/11/2024 12:46:50 Contraception care management 180376501 Z30.9 [id number] Lili Montiel IVANIA [facility] [address],[place] [address] 07/24/2024 12:20:01 07/24/2024 13:47:11 Contraception care management 152032142 Z30.9 All BC options discussedi nt in Mirena IUDr/b/a reviewedsc heduled to RTC for insertion Urinary symptoms 6751229 08 R39.9 ua/cx sentrx sent, r/b/a reviewedpr ecautions discussed Time spent in visit is a total of 22 mins with at least 50% of visit consisting of counseling and review of plan of care. [id number] Lili Montiel IVANIA [facility] [address] [address] 08/15/2024 11:46:21 08/15/2024 13:51:14 Screening procedure [id number] Z13.9 Venereal d isease screening [id number] Z11.3 Insertion of intrauterine contraceptive device 72609227 Z30.430 r/b/a reviewedUP T (-) / gc/ct/tric h testing sentconsen t reviewed and signedMire na IUD insertion performed (see procedure note)preca utions discussedR TC in 4-6 weeks for string check [id number] Lili Montiel IVANIA [place] [address] [address] 09/25/2024 11:33:48 09/25/2024 12:55:14 Vaginitis [id number] N76.0 vaginitis panel sentdeclin ed STI screenvulv ar care guidelines discusseds uspect BV, rx sent, r/b/a reviewed IUD check [id number] Z30. 431 Patient is here for 4-6wk IUD string checknorma l appearing IUD strings on exam She denies complicati ons, pain, or unpleasant side effects. Happy with this control method. Wishes to continue. Time spent in visit is a total of 25 mins with at least 50% of visit consisting of counseling and review of plan of care. Health Concerns Section Related Observation LastModified by Organization Detai ls LastModified Time None Recorded Concern Status LastModified by Organization Details LastModified Time None Recorded Advance Directives Directive N: Payers Insurance Date Sequence Insurance Name Policy Number Policy De Dios Covered Member ID De Dios Member ID Guarantor Name 06/08/2024 1 [employer] (POS II) [id number] Falguni L Joby [id number] Falguni L Joby 08/15/2024 1 *SELF PAY* Ta celeste L Joby 09/22/2024 1 ANGEL MCGUIRE-TABITHA (PPO) [id number] Falguni L [employer] [id number] Falguni L Joby 07/31/2023 1 [facility] [id number] Falguni L [employer] [id number] Falguni L [employer] 10/14/2023 1 [facility] [id number] Falguni Hemphill [id number] Falguni Hemphill Notes Date Note Type Note Provider Name and Address Organization Details Recorded Time 07/24/2024 text/html [id number] consultcurrently on depo proverawants to discuss other methods, Int in IUD urinary burning/frequency x 2 daysneg n/v/fneg flank pains Eden rene, [facility] 07/24/2024 15:36:31 08/15/2024 text/html Patient presents for IUD insertiondesires Mirena IUDcurrently using depo provera LAMONT Castañ[address], [place], [address], [facility] 08/15/2024 13:28:29 09/25/2024 text/html 44yo presents fo r IUD checks/p Mirena IUD insertion 08/15/2024 vaginal discharge/fishy odor for the last week LAMONT Castañ[address], [place], [address], [facility] 09/25/2024 12:52:32 OBGyn Episode No OBEpisode recorded.
--- OUTSIDE RECORDS SUMMARY | 2025-02-27 17:17 | XMS_ITS | Data Portability ---
Author Organization [place] - [employer], Main Office Address [address] [place] [address] Assessment Encounter Date Assessment Date Assessment LastModified by Organization Details LastModified Time 01/12/2024 01/12/2024 By history and exam the patient is noted to have rotator cuff tendinitis and impingement which seems to have started after a fall onto her right shoulder. This has been ongoing for 3 months she is failed conservative measures including oral prescription nonsteroidal anti-inflammator y medication activity modification as well. We talked about treatment options today in detail I think we need to start with a shot of cortisone we will give her a course of oral prednisone she will hold on the diclofenac for now then resume after the prednisone is done. We will also get her started with a course of physical therapy to treat her rotator cuff tendinitis. She agreed to proceed therefore under sterile conditions I injected the patient's right shoulder subacromial space in the office with 4 cc 0.5% bupivacaine and 20 mg of Kenalog. Patient tolerated the procedure well. I will see her back in 6 weeks to see what impact treatment has had. She voiced understanding agrees above plan she will call for any further problems difficulties or questions. [email or web address] Not available 01/12/2024 15:14:08 Plan of Treatment Reminders Order Date Submit Date Provider Last Modified By Organization Details Last Modified Time Details Appointments None recorded. Lab lipid panel, serum 2023 024 [facility] (Lab), [address] [place], [address], 21:25:42 CMP, serum or plasma 2023 024 [facility] (Lab), [address], [place], [address], 4 21:25:48 Referral physical therapist referral - please contact patient okay to leave message 2023 024 [email or web address] [facility], [address], [place], [address], 4 16:08:31 orthopedic surgeon referral 2023 024 [email or web address] Butch Mueller MD, [address], [place], [address], 4 08:20:49 Procedures injection/a spiration joint/bursa (PROC) 2023 024 [email or web address] In-Office Order, Internal Use Only DO Not Attach Compendium DO Not Attach Compendium, Do Not Delete/merge, [address] 4 15:10:48 Surgeries None recorded. Imaging XR, shoulder, 2 or more view 2023 024 [email or web address] [facility] David Murillo, [address], [place], [address], 4 16:08:31 Medication Orders escitalopra m 20 mg tablet 2024 025 [id number], [address], [place], [address], 5 15:26:36 escitalopra m 10 mg tablet 2024 025 [email or web address] [id number], [address], [place], [address], 5 15:27:04 hydroxyzine HCl 25 mg tablet 2024 025 [email or web address] [id number], [address] , [place], [address], 5 09:35:07 diclofenac sodium 75 mg tablet,malena yed release 2024 025 [facility][id number], [address] [place], [address], 5 11:34:11 clobetasol 0.05 % scalp solution 2024 025 [facility] #[id number], [address] [place], [address], 5 11:34:12 clobetasol 0.05 % topical cream 2024 025 [id number], [address] [place], [address], 5 11:34:12 bupivacaine HCl 0.5 % (5 mg/mL) injection solution 2023 024 [id number], [address] [place], [address], 4 17:58:01 Kenalog 10 mg/mL suspension for injection 2023 024 [email or web address] eaever [facility] #[id number], [address] [place], [address], 4 17:58:05 prednisone 10 mg tablets in a dose pack 2023 024 [email or web address] eaever [facility] #[id number], [address] [place], [address], 4 17:58:56 diclofenac sodium 75 mg tablet,malena yed release 2023 024 [email or web address] eaever [facility] #[id number], [address] [place], [address], 5 10:47:45 prednisone 10 mg tablet 2023 024 [email or web address] [id number], [address], [place], [address], 4 17:58:52 Patient TargetsNo targets recorded. Patient Instructions Encounter Date Encounter Id Patient Instructions Last Modified By Organization Details Last Modified Time 01/05/2024 [id number] risk assessment* [email or web address] Not availabl e 01/05/2024 12:52:30 INFLUENZA VACCIN E Patient will get at local pharmacy/health department TD/TDAP Patient will get at local pharmacy/health department PNEUMONIA VACCINE Recommended at age 65 SHINGLES Not indicated MAMMOGRAM: Last Mammogram __ No screening necessary patient is up to date DEXA SCAN Not indicated CERVICAL SCREENING/PELVIC EXAMINATION No screening necessary patient is up to date COLORECTAL SCREENING: Last Colonoscopy Up to date DEPRESSION SCREENING Negative BMI Overweight try to lose 10% of your body weight NUTRITION Eat Heart Healthy Diet PHYSICAL ACTIVITY Need more exercise/physical activity VISION Recommended today, but you have declined ALCOHOL USE No alcohol use TOBACCO USE non smoker LUNG CANCER SCREENING Non Smoker-not indicated SEXUALLY ACTIVE HEPATITIS C SCREENING Not indicated GLUCOSE SCREENING Not needed LIPID SCREENING Not needed [email or web address] Not available 01/05/2024 10:04:06 Reason for Referral Orthopedic Surgeon Referral for Pain of right shoulder joint Referring Physician: Freddy Goodwin, Internal Medicine, Encounter Date: 01/05/2024 Physical Therapist Referral for Tendinitis of right rotator cuff please contact patient okay to leave message Referring Physician: Reinaldo Merino, Orthopedic Surgery, Encounter Date: 01/12/2024 Results Created Date Observation Date Name Description Value Unit Range Abnormal Flag Note LastModifiedBy Organization Detail LastModifiedTime 01/18/20 24 01/18/2024 LIPID PANEL cholesterol 208 mg/dL 140-19 9 high NIH VIVIANA NSUS RECOM MENDA TION FOR GA STERO L: ADULT CHILD LOW RISK: <200 <170 BORDE RLINE : <200- 239 ----- HIGH RISK: >240 >200 Not Available [facility] (Lab) [address] [place], [address], 01/18/2024 21:25:42 01/18/20 24 01/18/2024 LIPID PANEL triglyceride s 80 mg/dL 0-150 NIH VIVIANA NSUS REPOR T RECOM MENDA TION FOR TRIGL YCERI ARACELY: ADULT CHILD LOW RISK: <150 ----- BODER LINE: 150-1 99 ----- HIGH RISK: >200 ----- Not Available [facility] (Lab) [address] [place], [address], 01/18/2024 21:25:42 01/18/20 24 01/18/2024 LIPID PANEL HDL cholesterol 49 mg/dL 40- Not Available [facility] (Lab) [address] [place], [address], 01/18/2024 21:25:42 01/18/20 24 01/18/2024 LIPID PANEL LDL cholesterol, calculated 143 mg/dL 0-130 high NIH VIVIANA NSUS REPOR T RECOM MENDA TIONS FOR LDL: ADULT CHILD LOW RISK <130 <110 (OPTI MAL LDL) <100 ----- BORDE RLINE : 130-1 59 ----- HIGH RISK: >160 >130 A TRIGL YCERI DE RESUL T >400 INVAL IDATE S THE CALCU LATIO N FOR LDL FRACT IONAT ION - THE LDL RESUL T WILL NOT BE REPOR JOHN. Not Available [facility] (Lab) [address] [place], [address], 01/18/2024 21:25:42 01/18/20 24 01/18/2024 COMPR EHENS ELSA METAB OLIC PANEL sodium 136 mmol/ L 137-14 5 low Not Available [facility] (Lab) [address] [place], [address], 01/18/2024 21:25:48 01/18/20 24 01/18/2024 COMPR EHENS ELSA METAB OLIC PANEL potassium 3.8 mmol/ L 3.5-5. 1 Not Available [facility] (Lab) [address] [facility] [place], [address], 01/18/2024 21:25:48 01/18/20 24 01/18/2024 COMPR EHENS ELSA METAB OLIC PANEL chloride 106 mmol/ L 98-107 Not Available [facility] (Lab) [address] [place], [address], 01/18/2024 21:25:48 01/18/20 24 01/18/2024 COMPR EHENS ELSA METAB OLIC PANEL carbon dioxide 22 mmol/ L 22-30 Not Available [facility] (Lab) [address] [place], [address], 01/18/2024 21:25:48 01/18/20 24 01/18/2024 COMPR EHENS ELSA METAB OLIC PANEL anion gap 11.8 mmol/ L 14-22 low Not Available [facility] (Lab) [address] [place], [address], 01/18/2024 21:25:48 01/18/20 24 01/18/2024 COMPR EHENS ELSA METAB OLIC PANEL glucose 95 mg/dL 70-99 Not Available [facility] (Lab) [address] [place], [address], 01/18/2024 21:25:48 01/18/20 24 01/18/2024 COMPR EHENS ELSA METAB OLIC PANEL BUN 12 mg/dL 8-19 Not Available [facility] (Lab) [address] [place], [address], 01/18/2024 21:25:48 01/18/20 24 01/18/2024 COMPR EHENS ELSA METAB OLIC PANEL creatinine 0.83 mg/dL 0.66-1 .25 Not Available [facility] (Lab) [address] [place], [address], 01/18/2024 21:25:48 01/18/20 24 01/18/2024 COMPR EHENS ELSA METAB OLIC PANEL GFR >60 Refer ence Range : [place] [facility] GFR Healt hy Adult : >60 mL/mi n/1.7 3 m2 Chron ic Kidne y Disea se: 15-60 mL/mi n/1.7 3 m2 Kidne y Failu re: <15/m L/min /1.73 m2 www.n iddk. nih.g ov The MDRD study equat ion has not been valid ated in child jonathan <18 years of age; pregn ant women ; the elder ly >85 years of age; or in some racia l or ethni c subgr oups, such as Hispa nics. Outsi de the valid ated suhail eters , estim ated GFR is less accur ate, requi ring clini sudarshan judgm ent on a case- by-ca se basis . Clini sudarshan inter preta tion for other races and ages must be made by the clini sandra. The MDRD study equat ion has not been valid ated for the evalu ation of serum creat inine relat ed to nutri chapis l statu s or medic ation usage . For perso ns <18 years of age, a pedia tric GFR calcu lator is avail able on the [facility] websi te: https ://delia darling.lito rg/pr ofess ional s/kdo qi/gf r_cal culat or Not Available [facility] (Lab) [address] [place], [address], 01/18/2024 21:25:48 01/18/20 24 01/18/2024 COMPR EHENS ELSA METAB OLIC PANEL alkaline phosphatase 64 U/L 38-126 Not Available [facility] (Lab) [address] [place], [address], 01/18/2024 21:25:48 01/18/20 24 01/18/2024 COMPR EHENS ELSA METAB OLIC PANEL alanine aminotransfe rase 24 U/L 0-35 Not Available [facility] (Lab) [address] [place], [address], 01/18/2024 21:25:48 01/18/20 24 01/18/2024 COMPR EHENS ELSA METAB OLIC PANEL aspartate aminotransfe rase 35 U/L 15-37 Not Available [facility] (Lab) [address] [place], [address], 01/18/2024 21:25:48 01/18/20 24 01/18/2024 COMPR EHENS ELSA METAB OLIC PANEL bilirubin, total 0.50 mg/dL 0.20-1 .30 Not Available [facility] (Lab) [address] [place], [address], 01/18/2024 21:25:48 01/18/20 24 01/18/2024 COMPR EHENS ELSA METAB OLIC PANEL calcium 9.1 mg/dL 8.4-10 .2 Not Available [facility] (Lab) [address] [place], [address], 01/18/2024 21:25:48 01/18/20 24 01/18/2024 COMPR EHENS ELSA METAB OLIC PANEL total protein 7.0 g/dL 6.3-8. 2 Not Available [facility] (Lab) [address] [place], [address], 01/18/2024 21:25:48 01/18/20 24 01/18/2024 COMPR EHENS ELSA METAB OLIC PANEL albumin 4.4 g/dL 3.4-5. 0 Not Available [facility] (Lab) [address] [place], [address], 01/18/2024 21:25:48 01/18/20 24 01/18/2024 COMPR EHENS ELSA METAB OLIC PANEL globulin 2.6 g/dL 2.6-4. 2 Not Available [facility] (Lab) [address] [place], [address], 01/18/2024 21:25:48 01/18/20 24 01/18/2024 COMPR EHENS ELSA METAB OLIC PANEL A/G ratio 1.7 ratio 1.0-2. 0 Not Available [facility] (Lab) [address], [place], [address], 01/18/2024 21:25:48 01/12/20 24 XR, shoul sagar, 2 or more view No observ ation record ed. [email or web address] [facility] [place] [address], [place], [address], 01/12/2024 15:15:25 Result Notes None recorded. Problems Name Problem SNOMED Code Status Onset Date Resolution Date Notes Provider Name and Address Organization Details Recorded Time Irritable bowel syndrome 36183144 Active Not Available [facility] 3 07:30:11 Chronic back pain 492324282 Active Not Available [facility] 3 07:30:11 Increased frequency of urination 162632531 Completed Not Available [facility] 3 07:30:11 Insomnia 427894034 Active Not Available [facility] 3 07:30:11 Asthma 271046034 Active Not Available [facility] 3 07:30:11 Contact dermatiti s caused by urushiol from [employer] nathanael 084817905 Completed 202102/16/2022 RAYMUNDO Ortega [address], [place], [address] , [employer] 5 13:25:11 Plantar fasciitis 977404892 Active JEREMY Torrez, [employer] 3 10:34:29 Malaise and fatigue 753298921 Completed Not Available [facility] 3 07:30:12 Pain in pelvis 43745201 Completed Not Available [facility] 3 07:30:12 Knee pain Completed Not Available [facility] 3 07:30:12 Depressiv e disorder 95819266 Active Not Available [facility] 3 07:30:12 Post-trau matic syrinx 773022873 Completed 02/17/2023 Mary rivers RMA null, [place] [facility] [employer] [facility] 3 10:34:24 Migraine 13052191 Active Not Available [facility] 3 07:30:12 Vertigo 356529003 Completed Not Available [facility] 3 07:30:12 Foot pain 68586272 Completed Not Available [facility] 3 07:30:13 Chronic fatigue syndrome 62724251 Completed Error Not Available [facility] 3 07:30:13 Pain of breast 53627919 Completed Not Available [facility] 3 07:30:13 Acute laryngiti s 3381214 Completed 202102/17/2023 Mary rivers RMA null, [employer] [facility] 3 10:34:09 Neck pain 11882015 Completed 202102/17/2023 Mary rivers RMA null, [place] - [employer] [facility] 3 10:34:16 Cardiomeg emily 0627243 Active Not Available [facility] 3 07:30:13 Cough 22214364 Completed 202202/17/2023 Mary rivers RMA null, [employer] [facility] 3 10:34:11 Laryngiti s 36339805 Completed 202202/17/2023 Mary rivers RMA null, [place] - [employer] [facility] 3 10:34:13 Allergic contact dermatiti s caused by plant material [id number] 184733 Active 2022 Freddy Goodwin MD [address] [place] [address], [place], [address] , [place] [facility] [employer] [facility] 3 10:46:45 Low back pain 312567440 Active 2022 Freddy Goodwin MD [address], [address], [place], [address] , [employer] [facility] 3 10:47:58 Contact dermatiti s caused by urushiol from [facility] nathanael 808238698 Active 2022 Nicole Roberson [employer] [address], [address], [place], [address] , [facility] 5 13:25:11 Seborrhei c dermatiti s of scalp 418616687 Active 2023 Freddy Goodwin MD [address], [address], [place], [address] , [facility] 4 15:12:45 Pain of right shoulder joint 09582256670 900117 Active 2023 Freddy Goodwin MD [address], [address], [place], [address] , [employer] [facility] 4 14:18:58 Bilateral earache 784164002 Active 2023 Freddy Goodwin MD [address], [address], [place], [address] , [employer] - [facility] 4 14:19:34 Tendiniti s of right rotator cuff 04474245755 884033 Active 2023 Laura Bauer null, [place] [facility] 4 15:07:29 Hornet sting 597885605 Active 2023 Addis Olivier MA null, [place] [facility] [place] [facility] 4 16:23:06 Eczema 49951749 Active 2024 Freddy Goodwin MD [address], [address], [place], [address] , [facility] 5 11:33:32 Upper respirato ry infection 97492808 Active 2024 Addis Olivier MA null, [place] [employer] 5 13:16:01 Pharyngit is 031980884 Active 2024 Lily Pozo, ENVIRONMENTAL PROTECTION GEOLOGIST [address] [facility], [facility] [address], [place], [address] , [facility] [employer] 5 16:23:24 Problem Notes None recorded. Procedures Surgical History Date Name Laterality Status Provider Name and Address Organization Details Recorded Time 08/29/19 cholecystectomy completed Monica Nichols [facility] 01/12/2024 14:33:52 Orthopedic Surgery completed Not Available [facility] 10/27/2022 07:26:36 Imaging Results None recorded. Procedure Notes None recorded. Medical Equipment None Reported. Allergies Allergen ID Allergen Name Allergen Category Reaction Reaction Severity Criticality Documentation Date Start Date Code Code System Note Provider Name and Address Organization Details Recorded Time 67296 acetamino phen / hydrocodo ne medicatio n Not available Not available Not available 10/27/2022 50051 2 RxNorm Not Available [facility] 3 07:35:39 00968 doxycycli ne Not available Not available Not available Not available 10/27/2022 3640 RxNorm ORAL ULCER S Not Available [facility] 3 07:35:39 71209 codeine medicatio n Not available Not available Not available 10/27/2022 2670 RxNorm oral ulcer s Not Available [facility] 3 07:35:39 60746 fluticaso ne / salmetero l medicatio n Not available Not available Not available 10/27/2022 16845 5 RxNorm Not Available [facility] 3 07:35:39 Medications Name Sig Start Date Stop Date Status Note LastModified by Organization Details LastModified Time blood pressu solution kit 09/05 completed Not Available Not Available Not Available amoxicillin 500 mg capsule TAKE 1 CAPSULE BY MOUTH 3 X DAILY X 7 days active Not Available Not Available No t Available Augmentin 875 mg-125 mg tablet Take 1 tablet every 12 hours by oral route for 7 days. 09/07 completed Not Available Not Available Not Available promethazin e-DM 6.25 mg-15 mg/5 mL oral syrup TAKE 5 ML BY MOUTH EVERY 4 HOURS NEEDED FOR COUGH active Not Available Not Available No t Available prednisone 10 mg tablet TAKE 1 TAB 3 TIMES DAILY X3 DAYS, 1 TAB TWICE DAILY X2 DAYS, THEN 1 TAB ONCE DAILY X1 DAY 02/22 completed Not Available Not Available Not Available azithromyci n 250 mg tablet TAKE 2 TABLETS BY MOUTH TODAY, THEN TAKE 1 TABLET DAILY FOR 4 DAYS DIRECTED active Not Available Not Available No t Available ibuprofen 800 mg tablet 04/07 completed Not Available Not Available Not Available fluconazole 150 mg tablet TAKE ONE TABLET BY MOUTH A ONE TIME DOSE 12/17 completed Not Available Not Available Not Available benzonatate 200 mg capsule Take 1 capsule 3 times a day by oral route. 09/07 completed Not Available Not Available Not Available albuterol sulfate 1.25 mg/3 mL solution for nebulizatio n Inhale 6 mL 3 times a day by inhalatio n route as needed. 10/26 completed Not Available Not Available Not Available sumatriptan 25 mg tablet 05/24 completed Not Available Not Available Not Available metronidazo le 0.75 % (37.5 mg/5 gram) vaginal gel INSERT 1 APPLICATO RFUL VAGINALLY EVERY DAY AT BEDTIME FOR 5 DAYS active Not Available Not Available No t Available bupivacaine HCl 0.5 % (5 mg/mL) injection solution Take 20 mg by injection route. 02/22 completed Not Available Not Available Not Available prednisone 20 mg tablet 02/05 completed Not Available Not Available Not Available clobetasol 0.05 % topical cream APPLY A THIN LAYER TO THE AFFECTED AREA(S) BY TOPICAL ROUTE 2 TIMES PER DAY active Not Available Not Available No t Available Excedrin Migraine 250 mg-250 mg-65 mg tablet Take 1 tablet twice a day by oral route as needed. 06/03 completed Not Available Not Available Not Available metronidazo le 500 mg tablet Take 1 tablet twice a day by oral route for 7 days. 06/29 completed Not Available Not Available Not Available valacyclovi r 500 mg tablet TAKE 1 CAPLET BY MOUTH ONCE DAILY FOR 3 DAYS 12/17 completed Not Available Not Available Not Available ciprofloxac in 500 mg tablet TAKE 1 TABLET BY MOUTH TWICE DAILY 05/26 /2022 completed Not Available Not Available Not Available sulfamethox azole 800 mg-trimetho prim 160 mg tablet 04/10 completed Not Available Not Available Not Available tramadol 50 mg tablet Take 1 tablet every 6 hours by oral route as needed. active Not Available Not Available No t Available triamcinolo ne acetonide 0.1 % topical cream APPLY A THIN LAYER TO THE AFFECTED AREA(S) BY TOPICAL ROUTE 2 TIMES PER DAY 2024 active Not Available Not Available Not Avai lable ketorolac 10 mg tablet TK 1 T PO Q 6 HOURS 04/10 completed Not Available Not Available Not Available prednisone 10 mg tablets in a dose pack Take 1 tab by mouth, 3 times a day for 3 daysTake 1 tab by mouth 2 times a day for 2 daysTake 1 tab by mouth once a day for 1 day 02/22 completed Not Available Not Available Not Available amoxicillin 875 mg tablet TAKE 1 TABLET BY MOUTH EVERY 12 HOURS active Not Available Not Available No t Available methocarbam ol 750 mg tablet TAKE 1 TABLET BY MOUTH 4 TIMES DAILY FOR 10 DAYS 05/20 completed Not Available Not Available Not Available Kenalog 10 mg/mL suspension for injection Take 20 mg by injection route. 02/22 completed [facility]: [phone] Not Available Not Available Not Available meclizine 25 mg tablet Take 1 tablet 3 times a day by oral route as needed. active Not Available Not Available No t Available diazepam 2 mg tablet TAKE 1 TABLET BY MOUTH THREE TIMES DAILY NEEDED FOR DIZZINESS OR VERTIGO 06/03 completed Not Available Not Available Not Available benzonatate 100 mg capsule TAKE 1 CAPSULE BY MOUTH TWICE DAILY NEEDED FOR COUGH 01/21 completed Not Available Not Available Not Available cephalexin 500 mg capsule TAKE 1 CAPSULE BY MOUTH EVERY 8 HOURS FOR 10 DAYS 12/17 completed Not Available Not Available Not Available pantoprazol e 40 mg tablet,malena yed release Take 1 tablet every day by oral route. 12/26 completed Not Available Not Available Not Available buspirone 10 mg tablet Take 1 tablet twice a day by oral route as needed. active Not Available Not Available No t Available naproxen 500 mg tablet,malena yed release 12/26 completed Not Available Not Available Not Available indomethaci n 25 mg capsule TAKE 1 CAPSULE BY MOUTH TWICE DAILY 05/20 completed Not Available Not Available Not Available diclofenac sodium 75 mg tablet,malena yed release TAKE 1 TABLET TWICE A DAY BY ORAL ROUTE NEEDED. active Not Available Not Available No t Available hydroxyzine HCl 25 mg tablet TAKE 1-2 TABLETS BY MOUTH AT BEDTIME NEEDED active Not Available Not Available No t Available mupirocin 2 % topical ointment APPLY 1 APPLICATI ON ONTO THE AFFECTED AREA(S) ON THE SKIN TWICE DAILY 09/05 completed Not Available Not Available Not Available ibuprofen 600 mg tablet 01/02 completed Not Available Not Available Not Available methylpredn isolone 4 mg tablets in a dose pack TAKE 6 TABLETS ON DAY 1 DIRECTED ON PACKAGE AND DECREASE BY 1 TAB EACH DAY FOR A TOTAL OF 6 DAYS active Not Available Not Available No t Available albuterol sulfate HFA 90 mcg/actuati on aerosol inhaler INHALE 1 PUFF BY MOUTH EVERY 6 HOURS NEEDED FOR SHORTNESS OR BREATH OR WHEEZING. 12/15 completed Not Available Not Available Not Available clobetasol 0.05 % scalp solution APPLY TO THE AFFECTED SCALP AREA BY TOPICAL ROUTE 2 TIMES PER DAY IN THE MORNING AND EVENING active Not Available Not Available No t Available medroxyprog esterone 150 mg/mL intramuscul ar suspension INJECT 1 ML INTO THE MUSCLE EVERY 3 MONTHS 01/04 completed Not Available Not Available Not Available naproxen 500 mg tablet TAKE 1 TABLET BY MOUTH TWICE DAILY FOR 10 DAYS 06/03 completed Not Available Not Available Not Available medroxyprog esterone 150 mg/mL intramuscul ar syringe INJECT 1ML INTO THE MUSCLE ONCE EVERY 3 MONTHS 09/05 completed Not Available Not Available Not Available escitalopra m 10 mg tablet TAKE 1 TABLET BY MOUTH EVERY DAY 2024 active Not Available Not Available Not Avai lable escitalopra m 20 mg tablet TAKE 1 TABLET BY MOUTH EVERYDAY AT BEDTIME active Not Available Not Available No t Available cyclobenzap rine 5 mg tablet Take 1 tablet 3 times a day by oral route. active Not Available Not Available No t Available cholestyram ine (with sugar) 4 gram powder for susp in a packet 12/26 completed Not Available Not Available Not Available nitrofurant oin monohydrate /macrocryst als 100 mg capsule TAKE 1 CAPSULE BY MOUTH EVERY 12 HOURS FOR 7 DAYS 09/05 completed Not Available Not Available Not Available famotidine 11/21 completed Not Available Not Available Not Available Symbicort 160 mcg-4.5 mcg/actuati on HFA aerosol inhaler Inhale 1 puff twice a day by inhalatio n route. 10/26 completed Not Available Not Available Not Available peg 3350 240 gram-electr olytes 22.72 gram-6.72 g-5.84 g powdr for soln 12/26 completed Not Available Not Available Not Available Zofran (base) 12/26 completed Not Available Not Available Not Available Fluvirin (PF) 45 mcg (15 mcg x 3)/0.5 mL IM syringe 10/26 completed Not Available Not Available Not Available Fluvirin 45 mcg (15 mcg x 3)/0.5 mL intramuscul ar suspension ADM 0.5ML IM UTD 10/26 completed Not Available Not Available Not Available Fluzone Quad 60 mcg (15 mcg x 4)/0.5 mL IM suspension 10/26 completed Not Available Not Available Not Available Melodetta 24 Fe 1 mg-20 mcg (24)/75 mg (4) chewable tablet 02/05 completed Not Available Not Available Not Available Fluzone Quad (PF) 60 mcg(15 mcgx4)/0.5 mL intramuscul ar syringe ADM 0.5ML IM UTD 06/12 completed Not Available Not Available Not Available Nurte ODT 75 mg disintegrat ing tablet Take by oral route for 16 days. 09/07 completed Not Available Not Available Not Available Vitals Date Recorded Body height Body mass index (BMI) Body weight Body temperature Heart rate Oxygen saturation Oxygen saturation in Arterial blood by Pulse oximetry Systolic blood pressure Diastolic blood pressure Provider Name and Address Organization Details Last Updated DateTime 5 172.72 cm 30.9 kg/m2 68672.2 5 g 97.6 [degF] 81 /min 99 % 99 % 122 mm[Hg] 80 mm[Hg] JEREMY Da Silva [place] [employer] [facility] 5 10:46:11 Date Recorded Body height Body mass index (BMI) Body weight Body temperature Heart rate Oxygen saturation Oxygen saturation in Arterial blood by Pulse oximetry Systolic blood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
--- NOTE | 2025-02-27 17:56 | ED.UPPEXIN ---
HPI - Extremity Injury (Upper) General Chief Complaint: Extremity Injury, Upper Stated Complaint: R elbow injury Time Seen by Provider: 02/27/25 17:23 Source: patient Mode of arrival: ambulatory Limitations: no limitations History of Present Illness HPI narrative: This is a 44-year-old female that presents to the emergency department after a injury 2 days ago with elbow pain. Reports she was starting a lawnmower and hit her elbow on a piece of wood. She has had swelling, pain, decreased range of motion since. Denies numbness. Related Data Home Medications ?Medication ?Instructions ?Recorded ?Confirmed ?Last Taken ?Type medroxyprogesterone 150 mg/mL mg IM 10/26/20 Unknown History intramuscular suspension Allergies Allergy/AdvReac Type Severity Reaction Status Date / Time doxycycline Allergy Severe SWELLING Verified 02/27/25 17:17 IN THE MOUTH codeine Allergy Unknown MOUTH Verified 02/27/25 17:17 INFLAMMATION AND MOUTH SORES acetaminophen AdvReac Severe swelling Verified 02/27/25 17:17 hydrocodone AdvReac Severe swelling Verified 02/27/25 17:17 Review of Systems Review of Systems: All systems reviewed & are unremarkable except as noted in HPI and below PMFSH Past Medical History Medical History Depression Eczema Fatty liver History of gallbladder disease History of pneumonia Hx of transient ischemic attack (TIA) Surgical History Surgical History History of cholecystectomy History of left knee surgery x1 Hx of right knee surgery x2 Family History Family History Mother Hypertension Other Cerebrovascular accident Diabetes mellitus Family history of allergic disorder Family history of malignant neoplasm Social History Social History Smoking status: Never smoker Second hand tobacco smoke exposure: Yes Smoking end date: 08/29/95 Alcohol intake: never Gender identity (if verbalized by the patient): Female Exam Narrative: GENERAL: Well-appearing, well-nourished, and in no acute distress. HEAD: Normocephalic, atraumatic. EYES: EOMI. EXTREMITIES: Normal range of motion. Mild edema about the elbow without overlying redness. Normal radial pulse. Normal sensation SKIN: Warm, dry, no rash. NEURO: No focal deficits. Alert and oriented x3. PSYCH: Normal mood and affect Const: Orientation/consciousness: No confusion Course Vital Signs Vital signs: Vital Signs Temperature 98.2 F 02/27/25 17:17 Pulse Rate 81 02/27/25 17:17 Respiratory Rate 16 02/27/25 17:17 Blood Pressure 125/84 02/27/25 17:17 Pulse Oximetry 100 02/27/25 17:17 Oxygen Delivery Room Air 02/27/25 17:17 Temperature 98.2 F 02/27/25 17:17 Pulse Rate 81 02/27/25 17:17 Respiratory Rate 16 02/27/25 17:17 Blood Pressure 125/84 02/27/25 17:17 Pulse Oximetry 100 02/27/25 17:17 Oxygen Delivery Room Air 02/27/25 17:17 Discharge Plan Discharge Clinical Impression: Bursitis Qualifiers: Bursitis location: elbow Elbow bursitis location: unspecified Laterality: right Qualified Code(s): M70.31 - Other bursitis of elbow, right elbow Patient Disposition: Home Condition: Stable Instructions: Elbow Bursitis (ED) Additional Instructions: Return to the ER if you experience fever, redness and swelling of your extremity, numbness or any other symptoms that are concerning to you Wear MASON wrap. Ice and elevate extremity. Anti-inflammatories and Tylenol for pain Follow up with orthopedics for further care. Patient Language: Emirati Prescriptions: No Action medroxyprogesterone 150 mg/mL suspension IM albuterol sulfate 90 mcg/actuation HFA aerosol inhaler 1 inh inhalation Q6H PRN (Reason: shortness of breath or wheezing) Qty: 6.7 0RF mupirocin 2 % ointment 1 applic topical BID Qty: 22 0RF Follow-up/Referrals: Jamie Solitario MD [Physician] - PHYSICIAN,INSTRUCTOR DANCING [Primary Care Provider] -
--- OUTSIDE RECORDS SUMMARY | 2025-02-27 18:20 | XMS_ITS | Clinical Summary ---
Author Organization [facility] Address [address] [facility] [place] [address] Care Team Providers Care Senior Art Director Name Role Phone Doug Oreilly MD Primary Care Provider [phone] Freddy Vann MD Unavailable [phone] Source Comments [facility],non-owned Affiliates and Associated Physician Practices is amultiple site organization consisting of ambulatory clinics and hospital sitesin [place], [place], [place] and [place]. This disclosure is being madepursuant to the Care Everywhere program and may not contain all information available regarding this patient. 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
--- OUTSIDE RECORDS SUMMARY | 2025-02-27 18:20 | XMS_ITS | Clinical Summary ---
Author Organization [facility] Address [address] [place] [address] Care Team Providers Care Assistant Shift Supervisor Name Role Phone Unavailable Primary Care Provider [...]
--- OUTSIDE RECORDS SUMMARY | 2025-02-27 18:21 | XMS_ITS | Clinical Summary ---
Author Organization [facility] Address [address] [place] [address] Phone Care Team Providers Care Lubrication Technician Name Role Phone Unavailable Primary Care Provider [...] patient's age to complete this topic Insurance [place] [address] PPO BCBS BLUE ACCESS/TRUE BLUE PPO WORKERS COMP
--- OUTSIDE RECORDS SUMMARY | 2025-02-27 18:21 | XMS_ITS | Clinical Summary ---
Author Organization [facility] Address [address] [place] [address] Phone Care Team Providers Care Jewelry Maker Name Role Phone Freddy Vann MD Primary Care Provider [phone] Allergies Active Allergy Reactions Criticality Noted Date [...] Comments Blood Pressure 120/70 08/17/2021 10:42 AM [employer]CORN CANDY MAKER Pulse 82 08/17/2021 10:42 AM [employer] CANDY MAKER Temperature 37 C (98.6 F) 08/17/2021 10:42 AM [employer]ANDY MAKER Respiratory Rate 16 08/17/2021 10:42 AM [employer] CANDY MAKER Oxygen Saturation 100% 08/17/2021 10:42 AM [employer] MAK[employer] Inhaled Oxygen Concentration - - Weight 94.6 kg (208 lb 9.6 oz) 08/17/2021 10:42 AM [employer] Height 172.7 cm (5' 8) 08/17/2021 10:42 AM [employer] Body Mass Index 31.72 08/17/2021 10:42 AM [employer] CANDY MAKER Plan of Treatment Health Maintenance Due Date [...] this topic Insurance [employer] Care Teams Jewelry Maker Relationship Specialty Start Date End Date Freddy Vann MD PCP - General Internal Medicine 06/08/21
== END 2025-02-27 18:45 | disposition home or self-care (01) ==
PROVIDERS: Emergency Provider Physician Assistant
DX: M70.31 Other bursitis of elbow, right elbow (principal); F32.A Depression, unspecified; Z86.73 Personal history of transient ischemic attack (TIA), and cerebral infarction without residual deficits; Z87.01 Personal history of pneumonia (recurrent); Z90.49 Acquired absence of other specified parts of digestive tract; Y93.H9 Activity, other involving exterior property and land maintenance, building and construction
CPT/HCPCS: 73080; 99283

== ENCOUNTER 2025-07-29 01:38 | Day surgery (SDC) | payer BC, SELFPAY ==
--- OUTSIDE RECORDS SUMMARY | 2015-11-18 02:15 | XMS_ITS | Continuity of Care Document ---
Author Organization [facility] Address [address] [place] [address] Phone Care Team Providers Care Batch Tester Name Role Phone Butch Montano MD Unavailable Unavailable Advance Directives Directive Yes / No Effective Date File Name No Information Encounters Encounter Description Practice Location Reason(s) For Visit Diagnoses Date Provider Providers Copied on Encounter [facility], [address], [place], [place], [id number], [place] tel:[phone] [facility] No Information Dusty Rae. [address] , [place], [place], [id number], [place]. tel:[phone] Referring Provider: Ozzie Rich, [address], [place], [address]. tel:[phone] Family History Family Member Type Diagnosis Age At Onset No Information Payers Payer name Insurance type Covered alliance party ID Authoriza tion(s) [employer] OPEN ACCESS I II III CI [id number] ELIZABETH CI [id number] Social History Type Description Quantity Date Captured Comments Sex Female Smoking Status No Information Chief Complaint And Reason For Visit No Information Reason For Referral Reason For Referral No Information History Of Present Illness Encounter Date Complaint History Of Prese nt Illness No Information Functional Status Date Functional Assessmen t No Information Instructions Date Instruction Additional Infor mation No Information Assessments Type Assessment Date No Information Patient Care Teams Name Effective Dates (start - stop) Status Members No Information
[2025-07-22 14:05] VITALS: BMI 24.3
--- NOTE | 2025-07-22 14:12 | SUR.PREOP ---
[facility] has started construction of its new state of the art ER which will open Spring 2026. With this, we anticipate parking may be a challenge for some our surgical patients and families. Parking spaces are limited but are available for all Surgical, obstetrics, and ER patients sharing this lot. If you arrive and find you are having a hard time finding a parking space, please note that we understand the challenges, please drive around the hospital and park near Hospital Entrance 1. When you enter this entrance, you can ask a volunteer to direct or take you back to the surgical waiting area to check in. We appreciate everyone?s understanding of these expected challenges while we build for your future. Report to the Outpatient Waiting Room, entrance under the green pavilion located off [address], at time 0800 on date 07/29/25. Planned Procedure Time: 1000. Time changes happen often and if your time is changed the preop area will call you the afternoon before. - You and your visitor will be asked to self-screen and do not enter if you have any COVID symptoms. Please call surgeon if you need to reschedule. - A mask is optional within the hospital at this time. Patients may have clear liquids (water, carbonated beverages, clear teas, apple juice) until 3 hours prior to surgery with a maximum of 20 ounces. - No food from midnight until time of surgery and no smoking, or chewing tobacco (or any form of nicotine). No chewing gum, candy or mints. - Infants may have breast milk until 4 hours before surgery, infant formula 6 hours prior to surgery. - Children will be allowed to drink immediately following surgery.? If applicable, please bring a bottle or sippy cup to assist with drinking. Juice, water, soda, and popsicles are readily available.? For infants on formula, please bring formula the day of surgery.? Pacifiers are allowed. Take only the following medications with a SIP of water on the morning of surgery: ____n/a____ DO NOT STOP ANY OF YOUR OTHER PRESCRIPTION MEDICATIONS PRIOR TO SURGERY EXCEPT THE FOLLOWING Hold all vitamins and supplements for 3 days per anesthesiologist. Medications to discontinue per physician n/a Date to take last dose Please no make-up, nail citizen of [place], hairspray, perfume, deodorant, or body powder the day of surgery.? No jewelry (including any body piercings) or valuables the day of surgery, leave them at home.? Please take a shower or bath the night before, or the morning of, surgery with an antibacterial soap.? Wear comfortable, loose fitting clothing.? Children are encouraged to wear pajamas. - Jewelry must be removed prior to entering the operating room.? Rings and piercings that are not removed may be cut off. - The hospital will not accept responsibility for valuables.? - Please leave all valuables, including medications, at home the day of surgery. If you are going home after surgery, a licensed driver starting gate must drive you home.? - NO public transportation without another adult if you receive anesthesia. - We recommend that an adult stay with you for 24 hours following discharge. - We also recommend that you do not drive, make important decision, drink alcoholic beverages, or take any drugs that were not prescribed by your health care provider for at least 24 hours after your discharge time. For Pediatric surgeries, we recommend two adults accompany the child home. Follow any additional instructions given to you from your surgeon. Telephone instructions given to patient and asked if any additional questions and then verbalized understanding. Patient advised to call surgeon office or pre surgery nurse liaison [phone] if any additional questions.
[2025-07-29] VITALS (11 sets, daily range): BP systolic 101–125; BP diastolic 60–83; PULSE 68–88; RESP 12–20; TEMP 36.4–36.7; O2SAT 76–100
--- OUTSIDE RECORDS SUMMARY | 2025-07-29 01:40 | XMS_ITS | Clinical Summary ---
Author Organization [facility] Address [address] [place] [address] Care Team Providers Care Strawhat Inspector And Packer Name Role Phone Doug Oreilly MD Primary Care Provider [phone] Freddy Vann MD Unavailable [phone] Source Comments [facility],non-owned Affiliates and Associated Physician Practices is amultiple site organization consisting of ambulatory clinics and hospital sitesin [place], [place], [place] and [place]. This disclosure is being madepursuant to the Care Everywhere program and may not contain all information available regarding this patient. Last updated 18.[facility] [employer] Allergies Active Allergy Reactions Criticality Noted Date [...] on file Legal Sex Female 11:11 AM [employer] Gender Identity Not on file Sexual Orientation [...] of 3 - 19+ 3-dose series) 2000 PAP SMEAR 2002 HPV VACCINE (1 - 3-dose SCDM series) 2008 Cervical Cancer Screening 2011 PAP with HPV 2011 DEPRESSION SCREENING 08/29/2024 COVID-19 VACCINE ( season) 2025 INFLUENZA VACCINE (#1) 2025 8, 09/10/2017, 06/22/2013, Additional history exists ZOSTER VACCINE [...] age to complete this topic Insurance [employer] Care Teams Strawhat Inspector [employer] Packer Relationship Specialty Start Date End Date Doug Oreilly MD PCP - General 02/08/18 Freddy Vann MD [address] [place] [address] [phone] Internal Medicine 02/08/18
--- OUTSIDE RECORDS SUMMARY | 2025-07-29 01:40 | XMS_ITS | Data Portability ---
Author Organization [place] - [facility], Main Office Address [address] [place] [address] Assessment No assessment recorded. Plan of Treatment Reminders Order Date Submit Date Provider Last Modified By Organization Details Last Modified Time Details Appointments Any 30 2025 08:30A RAYMUNDO Singh Not available Not available Not available Lab lipid panel, serum 2024 025 [facility] (Lab), [address] [place], [address], 04/10/2025 02:40:35 TSH, serum or plasma 2024 025 [facility] (Lab), [address] [place], [address], 04/10/2025 02:40:35 glycohe moglobi n, total, blood 2024 025 [email or web address] [facility] (Lab), [address] [place], [address], 04/16/2025 09:48:47 CBC w/ auto diff 2024 025 [facility] (Lab), [address] [place], [address], 04/10/2025 02:40:35 CMP, serum or plasma 2024 025 [facility] (Lab), [address] [place], [address], 04/10/2025 02:40:35 Referral None recorde d. Procedures None recorde d. Surgeries None recorde d. Imaging None recorde d. Medication Orders venlafa xine ER 37.5 mg capsule ,extend ed release 24 hr 2024 025 [id number], [address], [place], [address], 06/04/2025 09:18:40 venlafa xine ER 37.5 mg capsule ,extend ed release 24 hr 2024 025 [id number] [address] [place], [address], 05/03/2025 15:53:24 escital opram 20 mg tablet 2024 025 [id number] [place], [address], 05/03/2025 15:52:36 escital opram 10 mg tablet 2024 025 [id number] [address] [place], [address], 04/09/2025 09:34:46 hydroxy zine HCl 25 mg tablet 2024 025 [id number], [address] [place], [address], 05/03/2025 15:52:40 diclofe nac sodium 75 mg tablet, delayed release 2024 025 [id number], [address] [place], [address], 09/05/2024 11:34:11 clobeta sarahy 0.05 % scalp solutio n 2024 025 [id number], [address], [place], [address], 04/09/2025 09:35:31 clobeta sarahy 0.05 % topical cream 2024 [id number], [address], [place], [address], 04/09/2025 09:35:36 Patient TargetsNo targets recorded. Patient Instructions Encounter Date Encounter Id Patient Instructions Last Modified By Organization Details Last Modified Time 04/09/2025 [id number] Discussed medication compliance and routine follow up. Discussed healthy diet and routine exercise. Reviewed vaccine records and made recommendations as needed. Encouraged annual eye and dental exams, as well as twice yearly dental cleanings. Will check screening labs as listed below. Not available 04/09/2025 11:35:56 Discussed impote nce of routine follow ups and visit. Discussed concerns and all questions answered at this time. Discussed safe discontinuation of medications and schedule. [email or web address] Not available 04/09/2025 11:36:42 05/03/2025 [id number] Please call offi ce with any concerns or symptoms. Please follow up in 1 month for medication follow up as discussed. [email or web address] Not available 05/03/2025 15:55:40 06/04/2025 [id number] Please call offi ce with any questions or concerns. [email or web address] Not available 06/04/2025 09:01:22 Reason for Referral None Reported. Results Created Date Observation Date Name Description Value Unit Range Abnormal Flag Note LastModifiedBy Organization Detail LastModifiedTime Result Notes None recorded. Problems Name Problem SNOMED Code Status Onset Date Resolution Date Notes Provider Name and Address Organization Details Recorded Time Irritable bowel syndrome 62026972 Active Not Available [facility] 3 07:30:11 Chronic back pain 572400370 Active Not Available [facility] 3 07:30:11 Increased frequency of urination 147907880 Completed Not Available [facility] 3 07:30:11 Insomnia 784611423 Active Not Available [facility] 3 07:30:11 Asthma 986813161 Active Not Available [facility] 3 07:30:11 Plantar fasciitis 339225142 Active Mary rviers RMA null, [place] [facility] [employer] [facility] 3 10:34:29 Malaise and fatigue 721285161 Completed Not Available [facility] 3 07:30:12 Pain in pelvis 06476901 Completed Not Available [facility] 3 07:30:12 Knee pain Completed Not Available [facility] 3 07:30:12 Depressiv e disorder 97524223 Active Not Available [facility] 3 07:30:12 Post-trau matic syrinx 467002835 Completed 02/17/2023 Mary rivers RMA null, [place] [facility] [employer] [facility] 3 10:34:24 Migraine 18658005 Active Not Available [facility] 3 07:30:12 Vertigo 031823909 Completed Not Available [facility] 3 07:30:12 Foot pain 30501712 Completed Not Available [facility] 3 07:30:13 Chronic fatigue syndrome 39120110 Completed Error Not Available [facility] 3 07:30:13 Pain of breast 02455971 Completed Not Available [facility] 3 07:30:13 Cardiomeg emily 7555855 Active Not Available [facility] 3 07:30:13 Contact dermatiti s caused by urushiol from [employer] [facility] nathanael 464306624 Completed 202102/16/2022 RAYMUNDO Ortega [address] [place] [address], [address], [address] , [place] [facility] 5 13:25:11 Acute laryngiti s 9496667 Completed 202102/17/2023 Mary rivers RMA null, [place] [facility] 3 10:34:09 Neck pain 79258923 Completed 202102/17/2023 Mary rivers RMA null, [place] [facility] [employer] [facility] 3 10:34:16 Cough 07213770 Completed 202202/17/2023 Mary rivers RMA null, [facility] 3 10:34:11 Laryngiti s 23777587 Completed 202202/17/2023 Mary rivers RMA null, [employer] [facility] [employer] [facility] 3 10:34:13 Allergic contact dermatiti s caused by plant material 78083691077 841806 Active 2022 Freddy Goodwin MD [address], [address], [place], [address] , [employer] [facility] 3 10:46:45 Low back pain 353958781 Active 2022 Freddy Goodwin MD [address], [address], [place], [address] , [employer] [facility] 3 10:47:58 Contact dermatiti s caused by urushiol from [facility] nathanael 467504884 Active 2022 RAYMUNDO Ortega [address], [address], [place], [address] , [employer] [facility] 5 13:25:11 Seborrhei c dermatiti s of scalp 116953171 Active 2023 Freddy Goodwin MD [address], [address], [place], [address] , [employer] [facility] [employer] [facility] 4 15:12:45 Pain of right shoulder joint 41460837881 534622 Active 2023 Freddy Goodwin MD [address], [address], [place], [address] , [employer] [facility] [employer] [facility] 4 14:18:58 Bilateral earache 800170561 Active 2023 Freddy Goodwin MD [address], [address], [place], [address] , [employer] [facility] [employer] [facility] 4 14:19:34 Tendiniti s of right rotator cuff 05759008359 930440 Active 2023 Laura Bauer null, [facility] 4 15:07:29 Hornet sting 954264902 Active 2023 Addis Olivier MA null, [facility] 4 16:23:06 Eczema 35141378 Active 2024 Freddy Goodwin MD [address], [address], [place], [address] , [facility] 5 11:33:32 Upper respirato ry infection 48817162 Active 2024 Addis Olivier MA null, [facility] 5 13:16:01 Pharyngit is 979591925 Active 2024 Lily Pozo APRN [address], [address] [employer], [place], [address] , [facility] [employer] [facility] 5 16:23:24 Generaliz ed anxiety disorder 46007138 Active 2024 RAYMUNDO Ortega [address], [address], [place], [address] , [facility] 5 09:01:04 Mixed anxiety and depressiv e disorder 347574658 Active 2024 RAYMUNDO Ortega [address], [employer], [place], [address] , [facility] [employer] [facility] 5 15:41:52 Problem Notes None recorded. Procedures Surgical History Date Name Laterality Status Provider Name and Address Organization Details Recorded Time 08/29/19 cholecystectomy completed Monica Nichols [facility] [employer] [facility] 01/12/2024 14:33:52 Orthopedic Surgery completed Not Available [facility] 10/27/2022 07:26:36 Imaging Results None recorded. Procedure Notes None recorded. Medical Equipment None Reported. Allergies Allergen ID Allergen Name Allergen Category Reaction Reaction Severity Criticality Documentation Date Start Date Code Code System Note Provider Name and Address Organization Details Recorded Time 36465 acetamino phen / hydrocodo ne medicatio n Not available Not available Not available 10/27/2022 05494 2 RxNorm Not Available [facility] 3 07:35:39 40862 doxycycli ne Not available Not available Not available Not available 10/27/2022 3640 RxNorm ORAL ULCER S Not Available [facility] 3 07:35:39 56413 codeine medicatio n Not available Not available Not available 10/27/2022 2670 RxNorm oral ulcer s Not Available [facility] 3 07:35:39 19661 fluticaso ne / salmetero l medicatio n Not available Not available Not available 10/27/2022 97710 5 RxNorm Not Available [facility] 3 07:35:39 98065 oxycodone medicatio n Not available Not available [facility] 07/19/2025 7804 RxNorm Not Available [employer] [facility] 5 16:00:09 54006 fluticaso ne / salmetero l medicatio n Not available Not available [facility] 07/19/20252020 88740 5 RxNorm Not Available [employer] [facility] 5 16:00:09 42366 acetamino phen / hydrocodo ne medicatio n anaphylax is Not available [facility] 07/19/20252017 57626 2 RxNorm Not Available [employer] [employer] [facility] 5 16:00:09 74839 acetamino phen medicatio n Not available Not available [facility] 07/19/2025 161 RxNorm Not Available [employer] [facility] 5 16:00:09 26901 hydrocodo ne Not available Not available Not available [facility] 07/19/2025 5489 RxNorm Not Available [employer] [facility] 5 16:00:09 Medications Name Sig Start Date Stop Date Status Note LastModified by Organization Details LastModified Time blood pressu solution kit 09/05 completed Not Available Not Available Not Available amoxicilli n 500 mg capsule TAKE 1 CAPSULE BY MOUTH 3 X DAILY X 7 days 04/01 completed Not Available Not Available Not Available Augmentin 875 mg-125 mg tablet Take 1 tablet every 12 hours by oral route for 7 days. 09/07 completed Not Available Not Available Not Available promethazi ne-DM 6.25 mg-15 mg/5 mL oral syrup TAKE 5 ML BY MOUTH EVERY 4 HOURS NEEDED FOR COUGH 04/09 completed Not Available Not Available Not Available venlafaxin e ER 37.5 mg capsule,ex tended release 24 hr TAKE 1 CAPSULE BY MOUTH EVERY DAY active Not Available Not Available No t Available prednisone 10 mg tablet TAKE 1 TAB 3 TIMES DAILY X3 DAYS, 1 TAB TWICE DAILY X2 DAYS, THEN 1 TAB ONCE DAILY X1 DAY 02/22 completed Not Available Not Available Not Available azithromyc in 250 mg tablet TAKE 2 TABLETS BY MOUTH TODAY, THEN TAKE 1 TABLET DAILY FOR 4 DAYS DIRECTED 04/01 completed Not Available Not Available Not Available ibuprofen 800 mg tablet TAKE 1 TABLET BY MOUTH 1 HOUR PRIOR TO PROCEDURE active Not Available Not Available No t Available fluconazol e 150 mg tablet TAKE ONE TABLET BY MOUTH A ONE TIME DOSE 12/17 completed Not Available Not Available Not Available benzonatat e 200 mg capsule Take 1 capsule 3 times a day by oral route. 09/07 completed Not Available Not Available Not Available albuterol sulfate 1.25 mg/3 mL solution for nebulizati on Inhale 6 mL 3 times a day by inhalatio n route as needed. 10/26 completed Not Available Not Available Not Available ondansetro n HCl 8 mg tablet TAKE 1 TABLET BY MOUTH 1 HOUR PRIOR TO PROCEDURE active Not Available Not Available No t Available sumatripta n 25 mg tablet 05/24 completed Not Available Not Available Not Available metronidaz ole 0.75 % (37.5 mg/5 gram) vaginal gel INSERT 1 APPLICATO RFUL VAGINALLY EVERY DAY AT BEDTIME FOR 5 DAYS 04/09 completed Not Available Not Available Not Available bupivacain e HCl 0.5 % (5 mg/mL) injection solution Take 20 mg by injection route. 02/22 completed Not Available Not Available Not Available prednisone 20 mg tablet 02/05 completed Not Available Not Available Not Available clobetasol 0.05 % topical cream APPLY A THIN LAYER TO THE AFFECTED AREA(S) BY TOPICAL ROUTE 2 TIMES PER DAY 04/09 completed Not Available Not Available Not Available Excedrin Migraine 250 mg-250 mg-65 mg tablet Take 1 tablet twice a day by oral route as needed. 06/03 completed Not Available Not Available Not Available metronidaz ole 500 mg tablet Take 1 tablet twice a day by oral route for 7 days. 06/29 completed Not Available Not Available Not Available valacyclov ir 500 mg tablet TAKE 1 CAPLET BY MOUTH ONCE DAILY FOR 3 DAYS 12/17 completed Not Available Not Available Not Available ciprofloxa kelton 500 mg tablet TAKE 1 TABLET BY MOUTH TWICE DAILY 01/21 completed Not Available Not Available Not Available sulfametho xazole 800 mg-trimeth oprim 160 mg tablet 04/10 completed Not Available Not Available Not Available tramadol 50 mg tablet Take 1 tablet every 6 hours by oral route as needed. active Not Available Not Available No t Available triamcinol one acetonide 0.1 % topical cream APPLY THIN COAT TO AFFECTED AREA TWICE A DAY active Not Available Not Available No t Available ketorolac 10 mg tablet TK 1 T [...] completed Not Available Not Available Not Available alprazolam 0.5 mg tablet TAKE 1 TABLET BY MOUTH 1 HOUR PRIOR TO PROCEDURE active Not Available Not Available No t Available amoxicilli n 875 mg tablet TAKE 1 TABLET BY MOUTH EVERY 12 HOURS 04/01 completed Not Available Not Available Not Available methocarba mol 750 mg tablet TAKE 1 TABLET BY MOUTH 4 TIMES DAILY FOR 10 DAYS 05/20 completed Not Available Not Available Not Available Kenalog 10 mg/mL suspension for injection Take 20 mg by injection route. 02/22 completed NDC: 0003-0 494-20 Not Available Not Available Not Available meclizine 25 mg tablet Take 1 tablet 3 times a day by oral route as needed. active Not Available Not Available No t Available diazepam 2 mg tablet TAKE 1 TABLET BY MOUTH THREE TIMES DAILY NEEDED FOR DIZZINESS OR VERTIGO 06/03 completed Not Available Not Available Not Available benzonatat e 100 mg capsule TAKE 1 CAPSULE BY MOUTH TWICE DAILY NEEDED FOR COUGH 01/21 completed Not Available Not Available Not Available cephalexin 500 mg capsule TAKE 1 CAPSULE BY MOUTH EVERY 8 HOURS FOR 10 DAYS 12/17 completed Not Available Not Available Not Available pantoprazo le 40 mg tablet,del ayed release Take 1 tablet every day by oral route. 12/26 completed Not Available Not Available Not Available buspirone 10 mg tablet Take 1 tablet twice a day by oral route as needed. active Not Available Not Available No t Available naproxen 500 mg tablet,del ayed release 12/26 completed Not Available Not Available Not Available indomethac in 25 mg capsule TAKE 1 CAPSULE BY MOUTH TWICE DAILY 05/20 completed Not Available Not Available Not Available diclofenac sodium 75 mg tablet,del ayed release TAKE 1 TABLET TWICE A DAY BY ORAL ROUTE NEEDED. active Not Available Not Available No t Available hydroxyzin e HCl 25 mg tablet TAKE 1-2 TABLETS BY MOUTH AT BEDTIME NEEDED active Not Available Not Available No t Available mupirocin 2 % topical ointment APPLY 1 APPLICATI ON ONTO THE AFFECTED AREA(S) ON THE SKIN TWICE DAILY 09/05 completed Not Available Not Available Not Available ibuprofen 600 mg tablet TAKE 1 TABLET 3 TIMES A DAY BY ORAL ROUTE NEEDED. active Not Available Not Available No t Available methylpred nisolone 4 mg tablets in a dose pack TAKE 6 TABLETS ON DAY 1 DIRECTED ON PACKAGE AND DECREASE BY 1 TAB EACH DAY FOR A TOTAL OF 6 DAYS 05/03 completed Not Available Not Available Not Available albuterol sulfate HFA 90 mcg/actuat ion aerosol inhaler INHALE 1 PUFF BY MOUTH EVERY 6 HOURS NEEDED FOR SHORTNESS OR BREATH OR WHEEZING. 12/15 completed Not Available Not Available Not Available clobetasol 0.05 % scalp solution APPLY TO THE AFFECTED SCALP AREA BY TOPICAL ROUTE 2 TIMES PER DAY IN THE MORNING AND EVENING 04/09 completed Not Available Not Available Not Available medroxypro gesterone 150 mg/mL intramuscu lar suspension INJECT 1 ML INTO THE MUSCLE EVERY 3 MONTHS 01/04 completed Not Available Not Available Not Available naproxen 500 mg tablet TAKE 1 TABLET BY MOUTH TWICE DAILY FOR 10 DAYS 06/03 completed Not Available Not Available Not Available medroxypro gesterone 150 mg/mL intramuscu lar syringe INJECT 1ML INTO THE MUSCLE ONCE EVERY 3 MONTHS 09/05 completed Not Available Not Available Not Available escitalopr am 10 mg tablet TAKE 1 TABLET BY MOUTH EVERY DAY 04/09 completed takes a 20 mg Not Available Not Available Not Available escitalopr am 20 mg tablet TAKE 1 TABLET BY MOUTH EVERYDAY AT BEDTIME 05/03 completed Not Available Not Available Not Available cyclobenza surendra 5 mg tablet Take 1 tablet 3 times a day by oral route. active Not Available Not Available No t Available cholestyra mine (with sugar) 4 gram powder for susp in a packet 12/26 completed Not Available Not Available Not Available nitrofuran toin monohydrat e/macrocry stals 100 mg capsule TAKE 1 CAPSULE BY MOUTH EVERY 12 HOURS FOR 7 DAYS 09/05 completed Not Available Not Available Not Available famotidine 11/21 completed Not Available Not Available Not Available Symbicort 160 mcg-4.5 mcg/actuat ion HFA aerosol inhaler Inhale 1 puff twice a day by inhalatio n route. 10/26 completed Not Available Not Available Not Available peg 3350 240 gram-elect rolytes 22.72 gram-6.72 g-5.84 g powdr for soln 12/26 completed Not Available Not Available Not Available Zofran (base) 12/26 completed Not Available Not Available Not Available Fluvirin 7189-8356 (PF) 45 mcg (15 mcg x 3)/0.5 mL IM syringe 10/26 completed Not Available Not Available Not Available Fluvirin 45 mcg (15 mcg x 3)/0.5 mL intramuscu lar suspension ADM 0.5ML IM UTD 10/26 completed Not Available Not Available Not Available Fluzone Quad 60 mcg (15 mcg x 4)/0.5 mL IM suspension 10/26 completed Not Available Not Available Not Available Melodetta 24 Fe 1 mg-20 mcg (24)/75 mg (4) chewable tablet 02/05 completed Not Available Not Available Not Available Fluzone Quad 2018-(PF ) 60 mcg(15 mcgx4)/0.5 mL intramuscu lar syringe ADM 0.5ML IM UTD 06/12 completed Not Available Not Available Not Available [facility] mg disintegra ting tablet Take by oral route for 16 days. 09/07 completed Not Available Not Available Not Available Vitals Date Recorded Body height Body mass index (BMI) Body weight Body temperature Heart rate Oxygen saturation Systolic And Diastolic Provider Name and Address Organization Details Last Updated DateTime 5 172.72 cm 30.9 kg/m2 28281.2 5 g 97.6 [degF] 81 /min 99 % 122/80 mm[Hg] JEREMY Da Silva [employer] [facility] [employer] [facility] 5 10:46:11 Date Recorded Body height Body mass index (BMI) Body weight Body temperature Heart rate Oxygen saturation Systolic And Diastolic Provider Name and Address Organization Details Last Updated DateTime 5 172.72 cm 29 kg/m2 79131.1 4 g 97.3 [degF] 103 /min 99 % 109/67 mm[Hg] Yolie Mills [employer] [facility] 5 15:03:34 Date Recorded Body height Body mass index (BMI) Body weight Body temperature Heart rate Oxygen saturation Systolic And Diastolic Provider Name and Address Organization Details Last Updated DateTime 5 172.72 cm 27.4 kg/m2 74168.6 3 g 97.8 [degF] 89 /min 99 % 122/89 mm[Hg] Yolie Mills [employer] [facility] 5 09:34:27 Date Recorded Body height Body mass index (BMI) Body weight Oxygen saturation Heart rate Body temperature Systolic And Diastolic Provider Name and Address Organization Details Last Updated DateTime 5 172.72 cm 28.4 kg/m2 47519.7 7 g 98 % 87 /min 97.8 [degF] 132/82 mm[Hg] Yolie Mills [employer] [facility] 5 15:13:07 Date Recorded Body height Body mass index (BMI) Body weight Heart rate Body temperature Respiratory rate Oxygen saturation Systolic And Diastolic Provider Name and Address Organization Details Last Updated DateTime 5 172.72 cm 28.7 kg/m2 33053.9 6 g 79 /min 98 [degF] 18 /min 98 % 120/72 mm[Hg] BRITNEY OrtegaP-C [address] [facility], [address], [place], [address], [place] [facility] 5 09:15:50 Social History Question Answer Notes LastModified by inthinc Details LastModified Time Tobacco Smoking Status Former Smoker quit years ago Not Available [facility] 10/27/2022 07:26:27 In The 14 Days Before Symptom Onset, Have You Had Close Contact With A Laboratory-confirm ed COVID-19 While That Case Was Ill? No [id number] Information not available 10/27/2022 In The 14 Days Before Symptom Onset, Have You Had Close Contact With A Person Who Is Under Investigation For COVID-19 While That Person Was Ill? No [id number] Information not available 10/27/2022 What Was The Date Of Your Most Recent Tobacco Screening? 01/12/2024 Information not available 01/12/2024 Sex: Unknown Functional Status Question Answer Note LastModified by [employer] Details LastModified Time What is your level of alcohol consumption? None [id number] Information not available 10/27/2022 Mental Status None recorded. Family History Relationship Description Onset Age of this Age Resolved Age Notes LastModified by Organization Details LastModified Time Father No current problems or disability [id number] Not available 10/27/2022 07:26:38 Mother No current problems or disability [id number] Not available 10/27/2022 07:26:39 Notes:eczema, lung cancer Medical History No medical history recorded. Gynecological HistoryNo gynecological history recorded. Obstetrics History GPAL:G 0 P 0 0 0 0 Immunizations Vaccine Type Date Status Note Provider Nam e and Address Organization Details Recorded Time Hep A, pediatric, unspecified formulation 0 completed Not Available [facility] 06/04/2025 09:02:36 Influenza, split virus, trivalent, PF 5 completed Not Available [employer] 06/04/2025 09:02:36 Influenza, split virus, trivalent, PF 6 completed Not Available [facility] 06/04/2025 09:02:36 influenza, unspecified formulation 5 completed Addis Olivier MA null, [place] [facility] 07/15/2025 16:14:12 Influenza, split virus, trivalent, PF 3 completed Belgica Sargent CMA null, [place] [facility] 09/07/2023 14:53:38 Hep B, adult 2 completed Belgica Sargent CMA null, [facility] 09/07/2023 14:53:38 Hep B, adult 2 completed Belgica Sargent CMA null, [place] [facility] 09/07/2023 14:53:38 Hep B, adult 3 completed Belgica Sargent CMA null, [facility] 09/07/2023 14:53:38 Influenza, split virus, trivalent, preservative 2 completed Belgica Sargent CMA null, [place] [facility] 09/07/2023 14:53:38 COVID-19, mRNA, LNP-S, PF, 100 mcg/0.5mL dose or 50 mcg/0.25mL dose 1 completed Belgica Sargent CMA null, [place] [facility] 11/15/2023 14:06:51 COVID-19, mRNA, LNP-S, PF, 100 mcg/0.5mL dose or 50 mcg/0.25mL dose 1 completed Belgica Sargnet CMA null, [place] [facility] 11/15/2023 14:06:51 influenza, unspecified formulation 8 completed Belgica Sargent CMA null, [place] [facility] 11/15/2023 14:06:51 influenza, unspecified formulation 8 completed Belgica Sargent CMA null, [place] [facility] 11/15/2023 14:06:51 Influenza, split virus, quadrivalent, PF completed Not Available [facility] 10/27/2022 07:35:34 Past Encounters Encounter ID Performer Location Encounter Start Date Encounter Closed Date Diagnosis/Indication Diagnosis SNOMED-CT Code Diagnosis ICD10 Code Diagnosis IMO Codes Diagnosis Note [id number] Freddy Goodwin MD [facility] [address] [place] [address] 12/17/2020 00:00:00 12/17/2020 16:18:42 [id number] Freddy Goodwin MD [facility] [address] [facility] [place] [address] 12/29/2020 00:00:00 12/29/2020 16:03:25 [id number] Freddy Goodwin MD [facility] [address] [facility] [place] [address] 01/21/2021 00:00:00 01/21/2021 15:04:20 [id number] Freddy Goodwin MD [facility] Med [facility] [address] [place] [address], [address] [place] [address] 02/04/2021 00:00:00 02/04/2021 15:25:22 [id number] Freddy Goodwin MD [facility] [address] [facility] [place] [address] 06/03/2021 00:00:00 06/03/2021 12:45:43 [id number] Freddy Goodwin MD [facility] [address] [place] [address] 01/21/2022 00:00:00 01/21/2022 10:36:48 [id number] MD BRIANNA NicoleS[facility] [address] [facility] [place] [address] 02/16/2022 00:00:00 02/16/2022 14:26:02 [id number] MD BRIANNA [facility] Internal [address] [place] [address] 05/20/2022 00:00:00 05/20/2022 13:22:14 [id number] Freddy Goodwin MD [facility] Internal [address] [address] 12/07/2022 11:07:26 12/07/2022 11:56:57 Laryngitis 02513093 J04.0 [id number] Freddy Goodwin MD [facility] Internal [address] [address] 02/17/2023 10:28:03 02/17/2023 10:46:29 Allergic contact dermatitis caused by plant material [id number] 0344255 L23.7 Low back pain 374461829 M54.50 back exercises and stretching demo given [id number] Freddy Goodwin MD [facility] Internal [address] [address] 09/07/2023 14:45:01 09/07/2023 15:12:10 Low back pain 113428752 M54.50 looks like SI joint pin Seborrheic dermatitis of scalp 347448167 L21.0 [id number] Freddy Goodwin MD [address] [address] 11/15/2023 14:00:34 11/15/2023 14:19:41 Pain of right shoulder joint 4126374627 9151234 M25.511 ice kimberly Bilateral earache 967115 003 H92.03 sudafed tid [id number] Abi Avalos NP [facility] Internal [address] [address] 12/23/2023 11:00:47 12/23/2023 11:39:58 Allergic contact dermatitis caused by plant material 1525405690 5632024 L23.7 discussed local skin care and wash with gavin dishsoap to remove oilscan use selsun blue shampoo to sooth skin with soresuse the cream dr goodwin orderedtry daily zyrtec [id number] Freddy Goodwin MD [facility] Internal Med [facility] [address] [facility] [place] [address] 01/05/2024 09:29:32 01/05/2024 10:04:35 Adult health examination 546481754 Z00.00 Colonoscop y- 11/29/2017 Mammogram- 2022- NL per pt, [employer] ordersFLU- 3COVID- 01/11/2021 , 02/08/2021 ,, no boosters Depression screening 171 308286 Z13.31 Low back pain 792584210 M54.50 much better Seborrheic dermatitis of scalp 579813439 L21.0 better with meds Pain of ri ght shoulder joint 5724989519 9530973 M25.511 to see ortho Migraine 17307239 G43.90 9 no more History of depression 16 5556953 Z86.59 no more symptoms [id number] Butch Mueller MD [facility] [place] [address] [place] [address] 01/12/2024 14:18:34 01/12/2024 15:11:57 Pain of right shoulder joint 6914303075 4428210 M25.511 Tendinitis of right rotator cuff 4095971387 0973686 M67.580 [id number] Freddy Goodwin MD [facility] Internal [address] [address] 09/05/2024 10:39:01 09/05/2024 11:36:18 Adult health examination 155732198 Z00.00 Colonoscop y- 11/29/2017 Mammogram- 2023- NL per pt, [employer] ordersFLU- 3COVID- 01/11/2021 , 02/08/2021 ,, no boosters Low back pain 423166920 M54.50 Seborrheic dermatitis of scalp 411272457 L21.0 better with meds Migraine 44754601 G43.90 9 no more History of depression 16 4599229 Z86.59 Insomnia 550566907 G47.0 0 Eczema 68792892 L30.9 [id number] Freddy Goodwin MD [facility] Internal Med [facility] [address] [place] [address] 10/08/2024 14:41:30 10/08/2024 15:28:14 Depressive disorder 64306543 F32.A needs stronger dose [id number] Freddy Goodwin MD [facility] Internal Med [address] [place] [address] 04/09/2025 09:27:03 04/09/2025 12:38:46 Depressive disorder 07023206 F32.A Wants to wean off lexapro and try new medication .Denies S/HI at this time Screening for cardiovascular system disease 132377438 Z13.6 371319 Low back pain 411846626 M54.50 under control at this time Migraine 02564525 G43.90 9 under control at this time Insomnia 307827202 G47.0 0 reports still having insomnia- discussed medication s and theraputic environmen t/sleep hygiene [id number] Freddy Goodwin MD [facility] Internal Med [address] [address] 05/03/2025 15:00:38 05/03/2025 16:12:34 Generalized anxiety disorder 08067678 F41.1 041614 [id number] Freddy Goodwin MD [facility] Internal Med [address] [address] 06/04/2025 08:59:22 06/04/2025 09:30:45 Generalized anxiety disorder 30134134 F41.1 meds are helpingDen ies S/HI at this time Health Concerns Section Related Observation LastModified by Organization Detai ls LastModified Time None Recorded Concern Status LastModified by Organization Details LastModified Time None Recorded Advance Directives Directive None Recorded Payers Insurance Date Sequence Insurance Name Policy Number Policy De Dios Covered Member ID De Dios Member ID Guarantor Name 04/10/2025 1 [employer] [id number] Falguni L [place] [id number] Falguni L Joby 07/23/2025 1 [place] [id number] Falguni L Joby [id number] Falguni L [place] 04/10/2025 1 [employer] [id number] Falguni L Joby [id number] Falguni Hemphill Notes Date Note Type Note Provider Name and Address Organization Details Recorded Time 09/05/2024 text/html Pt is here today for [...] diet h/o migraines, improved Freddy Goodwin MD [address], [address], [place], [address], [employer] 09/05/2024 11:35:02 10/08/2024 text/html ROS as noted in the HPI pt is here for f/u on escitalopram. Pt feels like it is working but needs to be increased. no side effectsstill has some anxiety, mood is getting better.sleeping much betterno suicidal thoughts Freddy Goodwin MD [address], [address], [place], [address], [employer] 10/08/2024 15:27:59 04/09/2025 text/html Patient is a 44 year old female that presents to the office for annual wellness. Patient reports she no longer is wanting to take lexapro and would like to wean off to start something different. She reports that she has been having panic attacks at night and throughout the day at work. She reports she is overall doing well with no additional concerns at this time. She denies chest pain, shortness of breath, abdominal pain, N/V/D, fevers, fatigue, or recent illness at this time. lexapro - will wean 10mg 2 [id number] 1 week labs- ordered,mammogram- ordered by GYNcolonoscopy- not needed yetWWE- Gyne- maryille/ order mammogramDEXA- no longer neededFlu- yesCovid- no awareTdap-utdShing les- noPneumo-no Tuesday- panic attacks- just started-nights- 20yrsJuly started day shift worried about lymph node swelling *no refills needed at this time RAYMUNDO Ortega [address], [address], [place], [address], [employer] 04/09/2025 11:40:02 05/03/2025 text/html ROS as noted in the HPI Patient is 44y/o female who is here to discuss medicaton options for mood and anxiety. At last visit, patient wanted to stop taking her escitalopram and wean off. Today, she reports being angry, emotional, and just full of anxiety. She also reports that she sees a counselor regularly. She reports that she is wanting to discuss medications. She denies chest pain, shortness of breath, headaches, abdominal pains, and denies S/HI. RAYMUNDO Ortega [address], [place], [address], [employer] 05/03/2025 15:56:01 06/04/2025 text/html ROS as noted in the HPI Patient is 44y/o female who is here for 1 month follow up for start of medication for anxiety. She report that she is doing extremely well and does not have any side effects at this time. She reports that she is happy and no longer crying and has been in a great mood. She denies S/HI at this time. RAYMUNDO Ortega [address], [place], [address], [employer] 06/04/2025 09:29:47 OBGyn Episode No OBEpisode recorded.
--- OUTSIDE RECORDS SUMMARY | 2025-07-29 01:41 | XMS_ITS | Continuity of Care Document ---
Author Organization [facility], [facility] [address] Address [address] [place] [address] Assessment No assessment recorded. Plan of Treatment Reminders Order Date Submit Date Provider Last Modified By Organization Details Last Modified Time Details Appointments Any 30 2025 08:30A M RAYMUNDO Ortega Not available Not available Not available Lab None recorded. Referral None recorded. Procedures None recorded. Surgeries None recorded. Imaging None recorded. Medication Orders venlafaxi ne ER 37.5 mg capsule,e xtended release 24 hr 2024 025 [place] [id number], [address], [place], [address], 06/04/2025 09:18:40 Patient TargetsNo targets recorded. Patient Instructions Encounter Date Encounter Id Patient Instructions Last Modified By Organization Details Last Modified Time 06/04/2025 [id number] Please call office with any questions or concerns. [email or web address] Not available 06/04/2025 09:01:22 Reason for Referral None Reported. Problems Name Problem SNOMED Code Status Onset Date Resolution Date Notes Provider Name and Address Organization Details Recorded Time Irritable bowel syndrome 08874923 Active Not Available [facility] 3 07:30:11 Chronic back pain 902997677 Active Not Available [facility] 3 07:30:11 Increased frequency of urination 182926338 Completed Not Available [facility] 3 07:30:11 Insomnia 292686062 Active Not Available [facility] 3 07:30:11 Asthma 894868124 Active Not Available [facility] 3 07:30:11 Plantar fasciitis 216883508 Active Mary rivers RMA null, [place] [employer] [facility] 3 10:34:29 Malaise and fatigue 505742841 Completed Not Available [facility] 3 07:30:12 Pain in pelvis 36228579 Completed Not Available [facility] 3 07:30:12 Knee pain Completed Not Available [facility] 3 07:30:12 Depressiv e disorder 95571233 Active Not Available [facility] 3 07:30:12 Post-trau matic syrinx 255641284 Completed 02/17/2023 Mary rivers RMA null, [place] [employer] [facility] 3 10:34:24 Migraine 74221203 Active Not Available [facility] 3 07:30:12 Vertigo 779224790 Completed Not Available [facility] 3 07:30:12 Foot pain 71172373 Completed Not Available [facility] 3 07:30:13 Chronic fatigue syndrome 89133205 Completed Error Not Available [facility] 3 07:30:13 Pain of breast 07782424 Completed Not Available [facility] 3 07:30:13 Cardiomeg emily 9662080 Active Not Available [facility] 3 07:30:13 Contact dermatiti s caused by urushiol from [facility] nathanael 616550744 Completed 202102/16/2022 RAYMUNDO Ortega [address] [place] [address], [address] , [place] [facility] 5 13:25:11 Acute laryngiti s 6257219 Completed 202102/17/2023 Mary rivers RMA null, [place] [employer] [facility] 3 10:34:09 Neck pain 82543933 Completed 202102/17/2023 Mary rivers RMA null, [place] [facility] 3 10:34:16 Cough 04986523 Completed 202202/17/2023 JEREMY Torrez null, [facility] 3 10:34:11 Laryngiti s 11163829 Completed 202202/17/2023 Mary rivers RMMilagro null, [facility] 3 10:34:13 Allergic contact dermatiti s caused by plant material 04970340342 993960 Active 2022 Freddy Vann MD [address], [address], [place], [address] , [employer] [facility] 3 10:46:45 Low back pain 630656622 Active 2022 Freddy Vann MD [address], [address], [place], [address] , [employer] [facility] 3 10:47:58 Contact dermatiti s caused by urushiol from [facility] nathanael 083887067 Active 2022 RAYMUNDO Ortega [address], [address], [place], [address] , [employer] [facility] [employer] GROUP [facility] 5 13:25:11 Seborrhei c dermatiti s of scalp 855389025 Active 2023 Freddy Vann MD [address], [address], [place], [address] , [employer] [facility] 4 15:12:45 Pain of right shoulder joint 48868889496 218392 Active 2023 Freddy Vann MD [address], [address], [place], [address] , [employer] [facility] [employer] GROUP [facility] 4 14:18:58 Bilateral earache 934900703 Active 2023 Freddy Vann MD [address], [address], [place], [address] , [employer] [facility] [employer] GROUP [facility] 4 14:19:34 Tendiniti s of right rotator cuff 60045324669 389288 Active 2023 Laura Bauer null, [facility] [employer] GROUP [facility] 4 15:07:29 Hornet sting 593077621 Active 2023 Addis Olivier MA null, [facility] [employer] GROUP [facility] 4 16:23:06 Eczema 48702704 Active 2024 Freddy Vann MD [address], [place], [address] , [facility] [employer] GROUP [facility] 5 11:33:32 Upper respirato ry infection 18388417 Active 2024 Addis Olivier MA null, [employer] [facility] [employer] [facility] 5 13:16:01 Pharyngit is 068438369 Active 2024 Lily Pozo APRN [address], [place], [address] , [facility] [employer] [facility] [employer] [facility] 5 16:23:24 Generaliz ed anxiety disorder 56810454 Active 2024 RAYMUNDO Ortega [address], [place], [address] , [facility] [employer] [facility] [employer] [facility] 5 09:01:04 Mixed anxiety and depressiv e disorder 640008083 Active 2024 RAYMUNDO Ortega [address], [place], [address] , [facility] [employer] [facility] 5 15:41:52 Problem Notes None recorded. Procedures Surgical History Date Name Laterality Status Provider Name and Address Organization Details Recorded Time 08/29/19 cholecystectomy completed Monica Nichols [facility] [employer] [facility] 01/12/2024 14:33:52 Orthopedic Surgery completed Not Available [facility] 10/27/2022 07:26:36 Imaging Results None recorded. Procedure Notes None recorded. Medical Equipment None Reported. Allergies Allergen ID Allergen Name Allergen Category Reaction Reaction Severity Criticality Documentation Date Start Date Code Code System Note Provider Name and Address Organization Details Recorded Time 74541 acetamino phen / hydrocodo ne medicatio n Not available Not available Not available 10/27/2022 39154 2 RxNorm Not Available [facility] 3 07:35:39 94071 doxycycli ne Not available Not available Not available Not available 10/27/2022 3640 RxNorm ORAL ULCER S Not Available [facility] 3 07:35:39 59077 codeine medicatio n Not available Not available Not available 10/27/2022 2670 RxNorm oral ulcer s Not Available [facility] 3 07:35:39 35819 fluticaso ne / salmetero l medicatio n Not available Not available Not available 10/27/2022 95643 5 RxNorm Not Available [facility] 3 07:35:39 26883 oxycodone medicatio n Not available Not available [facility] 07/19/2025 7804 RxNorm Not Available [employer] 5 16:00:09 63751 fluticaso ne / salmetero l medicatio n Not available Not available [facility] 07/19/20252020 73788 5 RxNorm Not Available [employer] 5 16:00:09 32236 acetamino phen / hydrocodo ne medicatio n anaphylax is Not available [facility] 07/19/20252017 20340 2 RxNorm Not Available [employer] - prod 5 16:00:09 76178 acetamino phen medicatio n Not available Not available [facility] 07/19/2025 161 RxNorm Not Available [employer] - prod 5 16:00:09 42677 hydrocodo ne Not available Not available Not available [facility] 07/19/2025 5489 RxNorm Not Available [employer] - prod 5 16:00:09 Medications [...] completed Not Available Not Available Not Available promjavier ne-DM 6.25 mg-15 mg/5 mL oral syrup [...] 20 mg by injection route. 02/22 completed ND: [id number] [phone] Not Available Not Available Not [...] Not Available Not Available Not Available Fluvirin 2963-6666 (PF) 45 mcg (15 mcg x 3)/0.5 [...] Available Not Available Not Available Fluzone Quad (PF ) 60 mcg(15 mcgx4)/0.5 mL intramuscu lar syringe ADM 0.5ML IM UTD 06/12 completed Not Available Not Available Not Available [facility] ODT 75 mg disintegra ting tablet Take by oral route for 16 days. 09/07 completed Not Available Not Available Not Available Vitals Date Recorded Body height Body mass index (BMI) Body weight Heart rate Body temperature Respiratory rate Oxygen saturation Systolic And Diastolic Provider Name and Address Organization Details Last Updated DateTime 5 172.72 cm 28.7 kg/m2 36884.9 6 g 79 /min 98 [degF] 18 /min 98 % 120/72 mm[Hg] LOR Ortega-C [address], [place], [address], [place] [employer] 5 09:15:50 Social History Question Answer Notes LastModified by Muzooka Details LastModified Time Tobacco Smoking Status Former Smoker quit years ago Not Available [facility] 10/27/2022 07:26:27 In The 14 Days Before Symptom Onset, Have You Had Close Contact With A Laboratory-confirm ed COVID-19 While That Case Was Ill? No [id number] Information not available 10/27/2022 In The 14 Days Before Symptom Onset, Have You Had Close Contact With A Person Who Is Under Investigation For COVID-19 While That Person Was Ill? No [id number] Information not available 10/27/2022 What Was The Date Of Your Most Recent Tobacco Screening? 01/12/2024 [email or web address] Information not available 01/12/2024 Sex: Unknown Functional Status Question Answer Note LastModified by [email or web address] Parakey Details LastModified Time What is your level of alcohol consumption? None [id number] Information not available 10/27/2022 Mental Status None recorded. Family History Relationship Description Onset Age of this Age Resolved Age Notes LastModified by Organization Details LastModified Time Father No current problems or disability [id number] Not available 10/27/2022 07:26:38 Mother No current problems or disability [id number] Not available 10/27/2022 07:26:39 Notes:eczema, lung cancer Medical History No medical history recorded. Gynecological HistoryNo gynecological history recorded. Obstetrics History GPAL:G 0 P 0 0 0 0 Immunizations Vaccine Type Date Status Note Provider Nam e and Address Organization Details Recorded Time Hep A, pediatric, unspecified formulation 0 completed Not Available [facility] 06/04/2025 09:02:36 Influenza, split virus, trivalent, PF 5 completed Not Available [facility] 06/04/2025 09:02:36 Influenza, split virus, trivalent, PF 6 completed Not Available [facility] 06/04/2025 09:02:36 influenza, unspecified formulation 5 completed Addis Olivier MA null, [facility] 07/15/2025 16:14:12 Influenza, split virus, trivalent, PF 3 completed Belgica Sargent CMA null, [facility] 09/07/2023 14:53:38 Hep B, adult 2 completed Belgica Sargent CMA null, [facility] 09/07/2023 14:53:38 Hep B, adult 2 completed Belgica Sargent CMA null, [facility] 09/07/2023 14:53:38 Hep B, adult 3 completed Belgica Sargent CMA null, [facility] 09/07/2023 14:53:38 Influenza, split virus, trivalent, preservative 2 completed Belgica Sargent CMA null, [facility] 09/07/2023 14:53:38 COVID-19, mRNA, LNP-S, PF, 100 mcg/0.5mL dose or 50 mcg/0.25mL dose 1 completed Belgica Sargent CMA null, [facility] 11/15/2023 14:06:51 COVID-19, mRNA, LNP-S, PF, 100 mcg/0.5mL dose or 50 mcg/0.25mL dose 1 completed Belgica Sargent CMA null, [facility] [employer] [facility] 11/15/2023 14:06:51 influenza, unspecified formulation 8 completed Belgica Sargent [employer] null, [place] [facility] 11/15/2023 14:06:51 influenza, unspecified formulation 8 completed Belgica Sargent CMA null, [facility] [employer] [facility] 11/15/2023 14:06:51 Influenza, split virus, quadrivalent, PF 1 completed Not Available [employer] 10/27/2022 07:35:34 Past Encounters Encounter ID Performer Location Encounter Start Date Encounter Closed Date Diagnosis/Indication Diagnosis SNOMED-CT Code Diagnosis ICD10 Code Diagnosis IMO Codes Diagnosis Note [id number] Freddy Vann MD [facility] [address] [place] [address] 06/04/2025 08:59:22 06/04/2025 09:30:45 Generalized anxiety disorder 96120807 F41.1 meds are helpingDen ies S/HI at this time Health Concerns Section Related Observation LastModified by Organization Detai ls LastModified Time None Recorded Concern Status LastModified by Organization Details LastModified Time None Recorded Payers Encounter Date Sequence Insurance Name Policy Number Policy De Dios Covered Member ID De Dios Member ID Guarantor Name 06/04/2025 1 [employer] (PPO) [id number] Falguni Hemphill [id number] Falguni Hemphill Notes Date Note Type Note Provider Name and Address Organization Details Recorded Time 06/04/2025 text/html ROS as noted in the [...] mood. She denies S/HI at this time. Nicole Roberson, LOR-C [address], [place], [address], [facility] [employer] [facility] 06/04/2025 09:29:47 OBGyn Episode No OBEpisode recorded.
--- OUTSIDE RECORDS SUMMARY | 2025-07-29 01:41 | XMS_ITS | Continuity of Care Document ---
Author Organization [place] - [facility] [employer] [facility], [facility] [address] Address [address] [facility] [place] [address] Assessment No assessment recorded. Plan of Treatment [...] capsule,e xtended release 24 hr 2024 025 RAY [id number], [address], [place], [address], 05/03/2025 15:53:24 Patient TargetsNo targets recorded. Patient Instructions Encounter Date Encounter Id Patient Instructions Last Modified By Organization Details Last Modified Time 05/03/2025 [id number] Please call office with any concerns or symptoms. Please follow up in 1 month for medication follow up as discussed. [email or web address] Not available 05/03/2025 15:55:40 Reason for Referral None Reported. Results Created Date Observation Date Name Description Value Unit Range Abnormal Flag Note LastModifiedBy Organization Detail LastModifiedTime Result Notes None recorded. Problems Name Problem SNOMED Code Status Onset Date Resolution Date Notes Provider Name and Address Organization Details Recorded Time Irritable bowel syndrome 73357279 Active Not Available [facility] 3 07:30:11 Chronic back pain 426079178 Active Not Available [facility] 3 07:30:11 Increased frequency of urination 300974548 Completed Not Available [facility] 3 07:30:11 Insomnia 396086038 Active Not Available [facility] 3 07:30:11 Asthma 903052177 Active Not Available [facility] 3 07:30:11 Plantar fasciitis 183655113 Active Mary rivers RMA null, [employer] [facility] 3 10:34:29 Malaise and fatigue 713736587 Completed Not Available [facility] 3 07:30:12 Pain in pelvis 46126915 Completed Not Available [facility] 3 07:30:12 Knee pain Completed Not Available [facility] 3 07:30:12 Depressiv e disorder 24245699 Active Not Available [facility] 3 07:30:12 Post-trau matic syrinx 317171092 Completed 02/17/2023 BESSIE TorrezA null, [employer] [facility] 3 10:34:24 Migraine 72614072 Active Not Available [facility] 3 07:30:12 Vertigo 177748325 Completed Not Available [facility] 3 07:30:12 Foot pain 80035924 Completed Not Available [facility] 3 07:30:13 Chronic fatigue syndrome 17922485 Completed Error Not Available [facility] 3 07:30:13 Pain of breast 65828016 Completed Not Available [facility] 3 07:30:13 Cardiomeg emily 3035971 Active Not Available [facility] 3 07:30:13 Contact dermatiti s caused by urushiol from [facility] nathanael 889878262 Completed 202102/16/2022 LOR Ortega-Joel [address] [place] [address], [address] , [employer] [facility] [employer] [facility] 5 13:25:11 Acute laryngiti s 7570479 Completed 202102/17/2023 Mary rivres RMA null, [facility] [facility] [employer] [facility] 3 10:34:09 Neck pain 14979724 Completed 202102/17/2023 Mary rivers RMA null, [place] [facility] 3 10:34:16 Cough 94890775 Completed 202202/17/2023 Mary rivers, RMA null, [place] [facility] 3 10:34:11 Laryngiti s 14856152 Completed 202202/17/2023 Mary rivers, RMA null, [facility] 3 10:34:13 Allergic contact dermatiti s caused by plant material 03246760063 653641 Active 2022 Freddy Vann MD [address], [address], [place], [address] , [facility] 3 10:46:45 Low back pain 266403395 Active 2022 Freddy Vann MD [address], [address], [place], [address] , [facility] 3 10:47:58 Contact dermatiti s caused by urushiol from [facility] nathanael 233155469 Active 2022 RAYMUNDO Ortega [address], [address], [place], [address] , [facility] 5 13:25:11 Seborrhei c dermatiti s of scalp 951584021 Active 2023 Freddy Vann MD [address], [address], [place], [address] , [facility] 4 15:12:45 Pain of right shoulder joint 47237076467 489554 Active 2023 Freddy Vann MD [address], [address], [place], [address] , [facility] 4 14:18:58 Bilateral earache 892565581 Active 2023 Freddy Vann MD [address], [address], [place], [address] , [employer] [facility] [employer] 4 14:19:34 Tendiniti s of right rotator cuff 83359207074 835837 Active 2023 Laura Bauer null, [facility] [employer] [facility] 4 15:07:29 Hornet sting 227767632 Active 2023 Addis Olivier MA null, [facility] [employer] [facility] [employer] [facility] 4 16:23:06 Eczema 06280436 Active 2024 Freddy Vann MD [address], [address], [place], [address] , [facility] [employer] 5 11:33:32 Upper respirato ry infection 10542927 Active 2024 Addis Olivier MA null, [facility] [employer] 5 13:16:01 Pharyngit is 929600352 Active 2024 Lily Pozo APRN [address], [address], [place], [address] , [facility] [employer] 5 16:23:24 Generaliz ed anxiety disorder 12470896 Active 2024 RAYMUNDO Ortega [address], [place], [address] , [facility] [employer] 5 09:01:04 Mixed anxiety and depressiv e disorder 644347195 Active 2024 RAYMUNDO Ortega [address], [address], [place], [address] , [employer] [facility] [employer] 5 15:41:52 Problem Notes None recorded. Procedures Surgical History Date Name Laterality Status Provider Name and Address Organization Details Recorded Time 08/29/19 cholecystectomy completed Monica Nichols [employer] [facility] [employer] 01/12/2024 14:33:52 Orthopedic Surgery completed Not Available [facility] 10/27/2022 07:26:36 Imaging Results None recorded. Procedure Notes None recorded. Medical Equipment None Reported. Allergies Allergen ID Allergen Name Allergen Category Reaction Reaction Severity Criticality Documentation Date Start Date Code Code System Note Provider Name and Address Organization Details Recorded Time 54656 acetamino phen / hydrocodo ne medicatio n Not available Not available Not available 10/27/2022 78748 2 RxNorm Not Available [facility] 3 07:35:39 36176 doxycycli ne Not available Not available Not available Not available 10/27/2022 3640 RxNorm ORAL ULCER S Not Available [facility] 3 07:35:39 91975 codeine medicatio n Not available Not available Not available 10/27/2022 2670 RxNorm oral ulcer s Not Available [facility] 3 07:35:39 10443 fluticaso ne / salmetero l medicatio n Not available Not available Not available 10/27/2022 89197 5 RxNorm Not Available [facility] 3 07:35:39 76759 oxycodone medicatio n Not available Not available [facility] 07/19/2025 7804 RxNorm Not Available [employer] [facility] 5 16:00:09 85074 fluticaso ne / salmetero l medicatio n Not available Not available [facility] 07/19/20252020 40181 5 RxNorm Not Available [employer] - [employer] 5 16:00:09 83112 acetamino phen / hydrocodo ne medicatio n anaphylax is Not available [facility] 07/19/20252017 75647 2 RxNorm Not Available [employer] - [facility] 5 16:00:09 55488 acetamino phen medicatio n Not available Not available [facility] 07/19/2025 161 RxNorm Not Available [employer] [facility] 5 16:00:09 89116 hydrocodo ne Not available Not available Not available [facility] 07/19/2025 5489 RxNorm Not Available [employer] 5 16:00:09 Medications [...] 20 mg by injection route. 02/22 completed [facility]: [phone] Not Available Not Available Not [...] Not Available Not Available Not Available Fluvirin 5820-5981 (PF) 45 mcg (15 mcg x 3)/0.5 [...] Available Not Available Not Available Fluzone Quad 2017-(PF ) 60 mcg(15 mcgx4)/0.5 mL intramuscu lar syringe ADM 0.5ML IM UTD 06/12 completed Not Available Not Available [facility] Available [facility] mg disintegra ting tablet Take by oral route for 16 days. 09/07 completed Not Available Not Available Not Available Vitals Date Recorded Body height Body mass index (BMI) Body weight Oxygen saturation Heart rate Body temperature Systolic And Diastolic Provider Name and Address Organization Details Last Updated DateTime 5 172.72 cm 28.4 kg/m2 11983.7 7 g 98 % 87 /min 97.8 [degF] 132/82 mm[Hg] Yolie Callejas [employer] 5 15:13:07 Social History Question Answer Notes LastModified by [email or web address] Details LastModified Time Tobacco Smoking Status Former Smoker quit years ago Not Available [facility] 10/27/2022 07:26:27 In The 14 Days Before Symptom Onset, Have You Had Close Contact With A Laboratory-confirm ed COVID-19 While That Case Was Ill? No [id number] Information not available 10/27/2022 In The 14 Days Before Symptom Onset, Have You Had Close Contact With A Person Who Is Under Investigation For COVID-19 While That Person Was Ill? No [id number] Information not available 10/27/2022 What Was The Date Of Your Most Recent Tobacco Screening? 01/12/2024 Information not available 01/12/2024 Sex: Unknown Functional Status Question Answer Note LastModified by [email or web address] Details LastModified Time What is your level of alcohol consumption? None [id number] Information not available 10/27/2022 Mental Status None recorded. Family History Relationship Description Onset Age of this Age Resolved Age Notes LastModified by Organization Details LastModified Time Father No current problems or disability [id number] Not available 10/27/2022 07:26:38 Mother No current problems or disability [id number] Not available 10/27/2022 07:26:39 Notes:eczema, lung cancer Medical History No medical history recorded. Gynecological HistoryNo gynecological history recorded. Obstetrics History GPAL:G 0 P 0 0 0 0 Immunizations Vaccine Type Date Status Note Provider Nam e and Address Organization Details Recorded Time Hep A, pediatric, unspecified formulation 0 completed Not Available [facility] 06/04/2025 09:02:36 Influenza, split virus, trivalent, PF 5 completed Not Available [facility] 06/04/2025 09:02:36 Influenza, split virus, trivalent, PF 6 completed Not Available [facility] 06/04/2025 09:02:36 influenza, unspecified formulation 5 completed Addis Olivier MA null, [facility] 07/15/2025 16:14:12 Influenza, split virus, trivalent, PF 3 completed Belgica Sargent CMA null, [facility] 09/07/2023 14:53:38 Hep B, adult 2 completed Belgica Sargent CMA null, [facility] 09/07/2023 14:53:38 Hep B, adult 2 completed Belgica Sargent CMA null, [facility] 09/07/2023 14:53:38 Hep B, adult 3 completed Belgica Sargent CMA null, [facility] 09/07/2023 14:53:38 Influenza, split virus, trivalent, preservative 2 completed Belgica Sargent CMA null, [facility] 09/07/2023 14:53:38 COVID-19, mRNA, LNP-S, PF, 100 mcg/0.5mL dose or 50 mcg/0.25mL dose 1 completed Belgica Sargent CMA null, [facility] 11/15/2023 14:06:51 COVID-19, mRNA, LNP-S, PF, 100 mcg/0.5mL dose or 50 mcg/0.25mL dose 1 completed Belgica Sargent CMA null, [facility] [employer] [facility] 11/15/2023 14:06:51 influenza, unspecified formulation 8 completed Belgica Sargent CMA null, [place] [facility] [employer] [facility] 11/15/2023 14:06:51 influenza, unspecified formulation 8 completed Belgica Sargent CMA null, [facility] 11/15/2023 14:06:51 Influenza, split virus, quadrivalent, PF 1 completed Not Available [facility] 10/27/2022 07:35:34 Past Encounters Encounter ID Performer Location Encounter Start Date Encounter Closed Date Diagnosis/Indication Diagnosis SNOMED-CT Code Diagnosis ICD10 Code Diagnosis IMO Codes Diagnosis Note [id number] Freddy Vann MD [facility] Internal Med [facility] [address] [place] [address] 04/09/2025 09:27:03 04/09/2025 12:38:46 Depressive disorder 88099995 F32.A Wants to wean off lexapro and try new medication .Denies S/HI at this time Screening for cardiovascular system disease 763927695 Z13.6 345310 Low back pain 985911253 M54.50 under control at this time Migraine 84033524 G43.90 9 under control at this time Insomnia 412244651 G47.0 0 reports still having insomnia- discussed medication s and theraputic environmen t/sleep hygiene [id number] Freddy Vann MD [facility] [address] [facility] [place] [address] 05/03/2025 15:00:38 05/03/2025 16:12:34 Generalized anxiety disorder 35439651 F41.1 175016 Health Concerns Section Related Observation LastModified by Organization Detai ls LastModified Time None Recorded Concern Status LastModified by Organization Details LastModified Time None Recorded Payers Encounter Date Sequence Insurance Name Policy Number Policy De Dios Covered Member ID De Dios Member ID Guarantor Name 05/03/2025 1 [employer] [id number] Falguni Hemphill [id number] Falguni Hemphill Notes Date Note Type Note Provider Name and Address Organization Details Recorded Time 05/03/2025 text/html ROS as noted in the [...] breath, headaches, abdominal pains, and denies S/HI. Nicole Roberson, LOR-C [address] [place] [address], [place], [address], [facility] 05/03/2025 15:56:01 OBGyn Episode No OBEpisode recorded.
--- OUTSIDE RECORDS SUMMARY | 2025-07-29 01:41 | XMS_ITS | Data Portability ---
Author Organization [facility] Address [address] [place] [address] [place] [address] Care Team Providers Care Dietary Manager Name Role Phone TOM NICOLAS Primary Care Provider Assessment No assessment recorded. Plan of Treatment Reminders Order Date Submit Date Provider Last Modified By Organization Details Last Modified Time Details Appointments SURG Hysterosc opy 2024 10:00A Keisha SMITH MD Not available Not available Not available SURG POST OP 2024 09:30A Keisha SMITH MD Not available Not available Not available Lab CT + NG + TV, RNA, unspecifi ed specimen 2023 024 [facility] (Lab), [address], [place], [address], 08/16/2024 13:30:33 test, urine 2023 024 [email or web address] [facility], [address], [place], [address], 08/15/2024 12:52:36 urinalysi s, dipstick 2023 024 [email or web address] [address], [place], [address], 07/24/2024 15:36:03 culture, urine 2023 024 [facility] (Lab), [address], [place], [address], 07/26/2024 03:21:41 Referral None recorded. Procedures None recorded. Surgeries hysterosc opy, with endometri al ablation (SURG) [address], [facility] [address], [place], [address], 07/01/2025 11:03:08 salpingec jhon, laparosco pic (SURG) [address], [facility], [place], [address], 06/28/2025 15:10:09 Imaging None recorded. Medication Orders metronida zole 0.75 % (37.5 mg/5 gram) vaginal gel [address] [facility]/Pharmacy #[id number], [address], [place], [address], 09/25/2024 12:07:29 Mirena 21 mcg/24 hr (up to 8 years) 52 mg intrauter ine device 2023 024 [email or web address] [facility]/Pharmacy #[id number], [address], [place], [address], 08/15/2024 12:54:13 Macrobid 100 mg capsule [address] [facility]/Pharmacy #[id number], [address], [place], [address], 08/15/2024 12:47:36 Patient TargetsNo targets recorded. Patient InstructionsNo instructions recorded. Reason for Referral None Reported. Results Created Date Observation Date Name Description Value Unit Range Abnormal Flag Note LastModifiedBy Organization Detail LastModifiedTime 07/24/2007/24/2024 CULTU RE: URINE result report SEE RESULT S BELOW Test: Cultu re: Urine Speci men Sourc e: Urine - Clean Catch Speci men Type: Urine Speci men Date: 07/24 1527 Resul t Date: 07/26 0218 Resul t Statu s: Final resul t Abnor mal: No Resul evag Lab: [facility] [address] [facility] [address] Tel: [phone] CULTU RE ----- ----- ----- --- Cultu re resul t (>=3 organ isms prese nt) indic ates possi ble conta minat ion. Repea t cultu re if sympt oms indic ate. Not Available [facility] (Lab) [address], [place], [address], 07/26/2024 03:21:39 07/24/2007/24/2024 urina lysis , dipst ick Leukocytes + Not Available [facility] [address], [place], [address], 07/24/2024 15:34:58 07/24/2007/24/2024 urina lysis , dipst ick Protein + Not Available [facility] [address], [place], [address], 07/24/2024 15:34:58 07/24/20 24 07/24/2024 urina lysis , dipst ick pH 5 Not Available [facility] [address], [place], [address], 07/24/2024 15:34:58 07/24/20 24 07/24/2024 urina lysis , dipst ick Blood +++ Not Available [facility] [address], [place], [address], 07/24/2024 15:34:58 07/24/20 24 07/24/2024 urina lysis , dipst ick Specific [place] 1.030 Not Available [facility] [address], [place], [address], 07/24/2024 15:34:58 07/24/20 24 07/24/2024 urina lysis , dipst ick Ketone + Not Available [facility] [address], [place], [address], 07/24/2024 15:34:58 07/24/20 24 07/24/2024 urina lysis , dipst ick Appearance cloudy Not Available [facility] [address], [place], [address], 07/24/2024 15:34:58 07/24/20 24 07/24/2024 urina lysis , dipst ick Color yellow /orang e Not Available [facility] [address], [place], [address], 07/24/2024 15:34:58 08/15/20 24 08/15/2024 CT/GC AND TRICH OMONA S VAGIN SAL (RRNA ), URINE chlamydia trachomatis, PCR Negati ve negati ve Not Available [facility] (Lab) [address], [place], [address], 08/16/2024 13:30:33 08/15/20 24 08/15/2024 CT/GC AND TRICH OMONA S VAGIN SAL (RRNA ), URINE neisseria gonorrhoeae, PCR Negati ve negati ve Not Available [facility] (Lab) [address], [place], [address], 08/16/2024 13:30:33 08/15/20 24 08/15/2024 CT/GC AND TRICH OMONA S VAGIN SAL (RRNA ), URINE trichomonas vaginalis ribosomal RNA (rrna) Negati ve negati ve Not Available [facility] (Lab) [address], [place], [address], 08/16/2024 13:30:33 08/15/20 24 08/15/2024 pregn prema test, urine HCG negati ve Not Available [facility] [address], [place], [address], 08/15/2024 12:52:12 09/14/19 25 09/14/2024 CBC W/DIF F WBC 7.0 10'3/ uL 3.5-10 .5 Not Available [facility] (Lab) [address], [place], [address], 09/15/2024 05:13:04 09/14/19 25 09/14/2024 CBC W/DIF F RBC 4.62 10'6/ uL (based on docume nted legal sex) 3.80-5 .20 Not Available [facility] (Lab) [address], [place], [address], 09/15/2024 05:13:04 09/14/19 25 09/14/2024 CBC W/DIF F HGB 13.5 g/dL (based on docume nted legal sex) 11.6-1 5.4 Not Available [facility] (Lab) [address], [place], [address], 09/15/2024 05:13:04 09/14/1909/14/2024 CBC W/DIF F HCT 39.8 % (based on docume nted legal sex) 34.0-4 5.0 Not Available [facility] (Lab) [address], [place], [address], 09/15/2024 05:13:04 09/14/1909/14/2024 CBC W/DIF F MCV 86.1 fL 80.0-9 9.0 Not Available [facility] (Lab) [address], [place], [address], 09/15/2024 05:13:04 09/14/1909/14/2024 CBC W/DIF F MCH 29.2 pg 27.0-3 4.0 Not Available [facility] (Lab) [address], [place], [address], 09/15/2024 05:13:04 09/14/1909/14/2024 CBC W/DIF F MCHC 33.9 g/dL 32.0-3 5.5 Not Available [facility] (Lab) [address], [place], [address], 09/15/2024 05:13:04 09/14/19 25 09/14/2024 CBC W/DIF F RDW 12.4 % 11.0-1 5.0 Not Available [facility] (Lab) [address], [place], [address], 09/15/2024 05:13:04 09/14/19 25 09/14/2024 CBC W/DIF F plt 262 10'3/ uL 150-40 0 Not Available [facility] (Lab) [address], [place], [address], 09/15/2024 05:13:04 09/14/19 25 09/14/2024 CBC W/DIF F MPV 11.0 fL 8.8-12 .1 Not Available [facility] (Lab) [address], [place], [address], 09/15/2024 05:13:04 09/14/19 25 09/14/2024 CBC W/DIF F neutrophils 54.7 % 34.0-7 3.0 Not Available [facility] (Lab) [address], [place], [address], 09/15/2024 05:13:04 09/14/19 25 09/14/2024 CBC W/DIF F lymphocytes 35.8 % 15.0-5 0.0 Not Available [facility] (Lab) [address], [place], [address], 09/15/2024 05:13:04 09/14/19 25 09/14/2024 CBC W/DIF F monocytes 7.8 % 1.0-15 .0 Not Available [facility] (Lab) [address], [place], [address], 09/15/2024 05:13:04 09/14/19 25 09/14/2024 CBC W/DIF F eosinophils 0.7 % 0.0-8. 0 Not Available [facility] (Lab) [address], [place], [address], 09/15/2024 05:13:04 09/14/19 25 09/14/2024 CBC W/DIF F basophils 0.7 % 0.0-2. 0 Not Available [facility] (Lab) [address], [place], [address], 09/15/2024 05:13:04 09/14/19 25 09/14/2024 CBC W/DIF [...] separ ately if prese nt. Not Available [facility] (Lab) [address], [place], [address], 09/15/2024 05:13:04 09/14/19 25 09/14/2024 CBC W/DIF F absolute neutrophils 3.9 10'3/ uL 1.5-8. 0 Not Available [facility] (Lab) [address], [place], [address], 09/15/2024 05:13:04 09/14/19 25 09/14/2024 CBC W/DIF F absolute lymphocytes 2.5 10'3/ uL 1.0-4. 0 Not Available [facility] (Lab) [address] [place], [address], 09/15/2024 05:13:04 09/14/19 25 09/14/2024 CBC W/DIF F absolute monocytes 0.6 10'3/ uL 0.2-1. 0 Not Available [facility] (Lab) [address], [place], [address], 09/15/2024 05:13:04 09/14/19 25 09/14/2024 CBC W/DIF F absolute eosinophils 0.1 10'3/ uL 0.0-0. 6 Not Available [facility] (Lab) [address] [facility], [place], [address], 09/15/2024 05:13:04 09/14/19 25 09/14/2024 CBC W/DIF F absolute basophils 0.1 10'3/ uL 0.0-0. 3 Not Available [facility] (Lab) [address] [facility], [place], [address], 09/15/2024 05:13:04 09/14/19 25 09/14/2024 CBC W/DIF F absolute immature granulocytes 0.0 10'3/ uL 0.00-0 .10 Refer ence range s for nonbi nary/ inter sex or unspe cifie d gende r patie nts have not been estab lishe d. Pleas e refer to the follo wing table for range s estab lishe d for cisge nder patie nts and evalu ate in the clini davie yusef xt of the indiv idual patie nt: https ://miguelina marroquin book. nm.or g/Gen derX Not Available [facility] (Lab) [address], [place], [address], 09/15/2024 05:13:04 09/14/19 25 09/14/2024 CMP(C OMPRE HENSI VE METAB OLIC PANEL ) sodium 138 mmol/ L 133-14 6 Not Available [facility] (Lab) [address] [facility], [place], [address], 09/15/2024 05:13:05 09/14/19 25 09/14/2024 CMP(C OMPRE HENSI VE METAB OLIC PANEL ) potassium 3.9 mmol/ L 3.5-5. 1 Not Available [facility] (Lab) [address] [facility], [place], [address], 09/15/2024 05:13:05 09/14/19 25 09/14/2024 CMP(C OMPRE HENSI VE METAB OLIC PANEL ) chloride 104 mmol/ L 98-107 Not Available [facility] (Lab) [address] [facility] [address], [place], [address], 09/15/2024 05:13:05 09/14/19 25 09/14/2024 CMP(C OMPRE HENSI VE METAB OLIC PANEL ) carbon dioxide 25 mmol/ L 21-31 Not Available [facility] (Lab) [address] [facility], [place], [address], 09/15/2024 05:13:05 09/14/19 25 09/14/2024 CMP(C OMPRE HENSI VE METAB OLIC PANEL ) anion gap 9 mmol/ L 4-13 Not Available [facility] (Lab) [address] [facility], [place], [address], 09/15/2024 05:13:05 09/14/19 25 09/14/2024 CMP(C OMPRE HENSI VE METAB OLIC PANEL ) blood urea nitrogen 10 mg/dL 7-25 Not Available [facility] (Lab) [address] [facility], [place], [address], 09/15/2024 05:13:05 09/14/19 25 09/14/2024 CMP(C OMPRE HENSI VE METAB OLIC PANEL ) creatinine 0.93 mg/dL 0.60-1 .30 Not Available [facility] (Lab) [address] [facility], [place], [address], 09/15/2024 05:13:05 09/14/19 25 09/14/2024 CMP(C OMPRE HENSI VE METAB OLIC PANEL ) egfrcr (CKD-epi 2020) 78 mL/mi n/1.7 3_m2 >=60 Not Available [facility] (Lab) [address] [facility], [place], [address], 09/15/2024 05:13:05 09/14/19 25 09/14/2024 CMP(C OMPRE HENSI VE METAB OLIC PANEL ) calcium 9.6 mg/dL 8.3-10 .5 Not Available [facility] (Lab) [address] [facility], [place], [address], 09/15/2024 05:13:05 09/14/19 25 09/14/2024 CMP(C OMPRE HENSI VE METAB OLIC PANEL ) glucose 87 mg/dL 70-100 Not Available [facility] (Lab) [address] [facility], [place], [address], 09/15/2024 05:13:05 09/14/19 25 09/14/2024 CMP(C OMPRE HENSI VE METAB OLIC PANEL ) protein, total 7.3 g/dL 6.4-8. 3 Not Available [facility] (Lab) [address] [place], [address], 09/15/2024 05:13:05 09/14/19 25 09/14/2024 CMP(C OMPRE HENSI VE METAB OLIC PANEL ) albumin 4.7 g/dL 3.5-5. 0 Not Available [facility] (Lab) [address] [place], [address], 09/15/2024 05:13:05 09/14/19 25 09/14/2024 CMP(C OMPRE HENSI VE METAB OLIC PANEL ) ALT 15 units /L 9-43 Not Available [facility] (Lab) [address] [place], [address], 09/15/2024 05:13:05 09/14/19 25 09/14/2024 CMP(C OMPRE HENSI VE METAB OLIC PANEL ) alkaline phosphatase 57 units /L 34-104 Not Available [facility] (Lab) [address] [place], [address], 09/15/2024 05:13:05 09/14/19 25 09/14/2024 CMP(C OMPRE HENSI VE METAB OLIC PANEL ) AST 16 units /L 13-39 Not Available [facility] (Lab) [address] [facility], [place], [address], 09/15/2024 05:13:05 09/14/19 25 09/14/2024 CMP(C OMPRE HENSI VE METAB OLIC PANEL ) bilirubin, total 0.5 mg/dL 0.2-1. 2 Not Available [facility] (Lab) [address] [place], [address], 09/15/2024 05:13:05 09/14/19 25 09/14/2024 LIPID PANEL ,AMA (LDL- CALC) total cholesterol 175 mg/dL 0-199 Not Available [facility] (Lab) [address] [place], [address], 09/15/2024 05:13:05 09/14/1909/14/2024 LIPID PANEL ,AMA (LDL- CALC) triglyceride s 47 mg/dL 0-150 NCEP Refer ence Value s for Trigl yceri cindy: Deepti l: <150 mg/dL Borde rline High: 150 - 199 mg/dL High: 200 - 499 mg/dL Very High: >/= 500 mg/dL Not Available [facility] (Lab) [address] [place], [address], 09/15/2024 05:13:05 09/14/1909/14/2024 LIPID PANEL ,AMA (LDL- CALC) HDL cholesterol 53 mg/dL >40 Not Available [facility] (Lab) [address] [place], [address], 09/15/2024 05:13:05 09/14/1909/14/2024 LIPID PANEL ,AMA (LDL- CALC) LDL cholesterol 108 mg/dL 0-99 high Cutof f value s recom liliana d by the Natio nal [facility] stero [facility] Educa tion Progr am: ZAIN ABLE: [facility] stero l <200 mg/dL LDL <100 mg/dL BORDE RLINE : [facility] stero l 200-2 39 mg/dL LDL 101-1 59 mg/dL HIGHE R RISK: [facility] stero l >240 mg/dL LDL >160 mg/dL , HDL <40 mg/dL Not Available [facility] (Lab) [address] [facility], [place], [address], 09/15/2024 05:13:05 09/14/19 25 09/14/2024 LIPID PANEL ,AMA (LDL- CALC) non-HDL cholesterol 122 mg/dL no refere nce range A reaso nable goal for non-H DL aurora stero l is one that is 30 mg/dL highe r than the LDL aurora stero l goal. Not Available [facility] (Lab) [address] [facility], [place], [address], 09/15/2024 05:13:05 09/14/19 25 09/14/2024 LIPID PANEL ,AMA (LDL- CALC) chol/HDL ratio 3.3 . 0.0-5. 0 On December 21, 2022, RUST labor atori es montesinos ed the equat ion for calcu latin g estim ated low-d ensit y lipop rotei n-cho leste rol (LDL- C) from the Fried breana equat ion to the Anita silvestre/Rosie green equat ion. This new equat ion is only valid for lipid panel s with trigl yceri cindy < 400 mg/dL . Laurai es annita avilaon kristine ed that this new equat ion will impro ve the accur acy of LDL-C , espec ially in scena blas when LDL-C vickey ntrat ions are relat ively low (< 100 mg/dL ), trigl yceri cindy are eleva james, or patie nt is non-f astin g. Refer ences : - Fran Quiroz, Jameel Morales , Juan ramirez, Jared Freeman, Jared de anda, [facility] , and Francis Lynn . 2013. Comp ariso n of a Novel Metho d vs the Fried breana Equat ion for Estim ating Low-D ensit y Lipop rotei n [facility] stero l Level s from the Stand arthur Lipid Kitty tanner. ALFREDO: The Journ al of the Ameri can Medic al Assoc iatio n 310 (87): 2060- . - Lyric reed V, Kassie J, Albino reed A, Isidro M, Rubi robbins R, Cate reed E, Justin baldwin RS, Lynn SR, Anita n SS. Fast ing Versu s Nonfa sting and Low-D ensit y Lipop rotei n [facility] stero l Accur acy. Circu latio n. 2017Aug 30;137 (1):1 0-19. Not Available [facility] (Lab) [address] [facility], [place], [address], 09/15/2024 05:13:05 09/14/19 25 09/14/2024 TSH, REFLE X FREE T4 TSH 2.58 uIU/m L 0.30-5 .33 Not Available [facility] (Lab) [address] [facility], [place], [address], 09/15/2024 05:13:05 09/14/19 25 09/14/2024 VITAM IN D, 25-OH (TOTA L D2/D3 ) vitamin D, 25-hydroxy, total 30.7 NG/mL 30.0-1 00.0 Sugge stive of Defic iency : <20 ng/mL Sugge stive of Insuf ficie ncy: 20-29 ng/mL Sugge stive of Suffi cienc y: 30-10 0 ng/mL Sugge stive of Toxic ity: >150 ng/mL Not Available [facility] (Lab) [address] [place], [address], 09/15/2024 05:13:06 09/14/19 25 09/14/2024 HEMOG LOBIN A1C hemoglobin A1C 5.0 % 4.0-5. 6 The Ameri can Diabe pollo Assoc iatio n recom mends that a prima ry goal of therotto faye be a HBA1C of < 7% and that physi cians shoul d reeva luate the treat ment regim en in patie nts with HBA1C value s consi stent ly > 8%. <5.7% Deepti l 5.7 - 6.4% Incre ased risk for diabe pollo >=6.5 % Diagn ostic of diabe pollo <7.0% Goal of thera py >8.0% Actio n mena sted Not Available [facility] (Lab) [address] [place], [address], 09/15/2024 05:13:06 09/25/1909/25/2024 WOMEN 'S HEALT H SWAB, JAZ eugene species, tma Negati ve negati ve Not Available [facility] (Lab) [address] [place], [address], 09/26/2024 10:56:47 09/25/19 25 09/25/2024 WOMEN 'S HEALT H SWAB, JAZ eugene glabrata, tma Negati ve negati ve Not Available [facility] (Lab) [address] [place], [address], 09/26/2024 10:56:47 09/25/1909/25/2024 WOMEN 'S HEALT H SWAB, JAZ trichomonas vaginalis, tma Negati ve negati ve This assay tests for and diffe renti ates betwe en Yvrose da glabr mert, the Yvrose da speci es group (C. albic ans, C. tropi calis , C. parap jocy is, C. dubli ni is), and Trich omona s vagin sal by Trans cript ion-M ediat ed Ampli ficat ion (TMA) . Not Available [facility] (Lab) [address] [place], [address], 09/26/2024 10:56:47 09/25/19 25 09/25/2024 WOMEN 'S HEALT H SWAB, JAZ bacterial [...] or negat sara statu s. Not Available [facility] (Lab) [address], [place], [address], 09/26/2024 10:56:47 07/03/2007/03/2025 SURGI DAVIE PATHO LOGY surgical pathology SEE RESULT S BELOW CASE REPOR T: Surgi davie Patho logy Repor t Case: [id number] Autho aki cooper Provi sagar: Alix Ball MD Colle cted: 07/03 1144 Order ing Locat ion: [place] Patho log[facility] Recei hazel: 07/04 0340 Patho logis t: [address], MD Speci men: Mauro lopez m, EMB ----- ----- ----- ----- ----- ----- ----- ----- ----- ----- ----- ----- ----- ----- ----- ----- ----- ---- FINAL DIAGN OSIS: Endom etriu m; biops y: Benmary n inact sara endom etriu m with jasmine al danay ual [place] [facility] of exoge nous hormo ne effec t Elect wilman faye by [address], MD on 2024 at 0542 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 Digit al imagi ng was used in the diagn ostic asses sment of this case. A micro scopi c exami natio n was perfo rmed. GROSS DESCR IPTIO N: A. Endom etriu m. The speci men is label ed with the patie nt's name, roxane calvillo cs and EMB . Recei hazel in forma rossy is a 1.9 x 0.7 x 0.[address] of red-t an tissu e. The entir e speci men is submi tted in one casse tte. Gross ed by Deb Waldron on Not Available [facility] (Lab) [address] [facility], [place], [address], 07/05/2025 06:49:17 Result Notes None recorded. Problems Name Problem SNOMED Code Status Onset Date Resolution Date Notes Provider Name and Address Organization Details Recorded Time Screenin g for malignan t neoplasm of cervix Completed 201307/13/2021 Screenin g for malignan t neoplasm s of the cervix;R ecorded Elsewher e: No Locat ion: [facility] S ource: EHR Client Sales And Service Officer peg: N Practi ce ID: [id number] Samuel lable Time: 08:30:00 AM Nathalia rene [facility] 16:35:27 Adult health examinat ion Completed 201307/13/2021 Routine general medical examinat ion at a health care facility ;Practic e ID: 0001 Nathalia rene [facility] 16:35:06 Speciali zed medical examinat ion Completed 201307/13/2021 Routine gynecolo gical examinat ion;Prac joselito ID: 0001 Nathalia Alvarez [facility], [facility] 16:35:32 Female genital organ symptoms [id number] Completed 201307/13/2021 Unspecif ied symptom associat ed with female genital organs;R ecorded Elsewher e: No Locat ion: [facility] S ource: EHR Client Sales And Service Officer peg: N Practi ce ID: [id number] Samuel lable Time: 04:00:00 PM Nathalia Alvarez [facility] 16:35:12 Menstrua tion finding Completed 201307/13/2021 Menorrha lela Excessiv e Menstrua tion;Pra ctice ID: 0001 Nathalia Alvarez [facility], [facility] 16:35:20 Pure hypercho lesterol emia [id number] Completed 201307/13/2021 Elevated choleste rol;Arthur rded Elsewher e: No Locat ion: [facility] S ource: EHR Client Sales And Service Officer peg: N Practi ce ID: 0001 Samuel lable Time: 04:00:00 PM Nathalia Alvarez [facility] 16:35:26 Menopaus al symptom [id number] Completed 201407/13/2021 Hot flashes; Recorded Elsewher e: No Locat ion: [facility] S ource: EHR Client Sales And Service Officer peg: N Practi ce ID: [id number] Samuel lable Time: 08:30:00 AM Nathalia Alvarez [facility] 16:35:19 Abdomina l pain [id number] Completed 201407/13/2021 Suprapub ic abdomina l pain;Rec orded Elsewher e: No Locat ion: [facility] S ource: EHR Client Sales And Service Officer peg: N Practi ce ID: 0001 Samuel lable Time: 04:30:00 PM Nathalia Alvarez [facility] 16:35:[address] Concept Completed 201407/13/2021 Encntr for general adult medical exam w/o abnormal findings ;Recorde d Elsewher e: No Locat ion: Marina itzel [facility] S ource: EHR Client Sales And Service Officer peg: N Practi ce ID: [id number] Samuel lable Time: 03:15:00 PM Nathalia Alvarez [facility] 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 16:35:30 Pain in female genitali a Completed 201807/13/2021 Dysmenor gisel;Rec orded Elsewher e: No Locat ion: Marina itzel [facility] S ource: EHR Client Sales And Service Officer peg: N Practi ce ID: 0001 Samuel lable Time: 09:45:00 AM Nathalia Alvarez [facility] 16:35:[address] Concept Completed 201807/13/2021 Encounte r for general adult medical exam with abnormal finding; Recorded Elsewher e: No Locat ion: Marina robbins [facility] S ource: EHR Client Sales And Service Officer peg: N Practi ce ID: [id number] Samuel lable Time: 09:45:00 AM Nathalia Alvarez [facility] 16:35:25 Bleeding Completed 201807/13/2021 Abnormal uterine bleeding ;Recorde d Elsewher e: No Locat ion: Marina tizel [facility] S ource: EHR Client Sales And Service Officer peg: N Practi ce ID: [id number] Samuel lable Time: 09:45:00 AM Nathalia Alvarez [facility] 16:35:15 Abnormal uterine bleeding [id number] Completed 201807/13/2021 Other specifie d abnormal uterine and vaginal bleeding ;Recorde d Elsewher e: No Locat ion: [facility] S ource: EHR Client Sales And Service Officer peg: N Adanti ce ID: [id number] Samuel lable Time: 08:45:00 AM [facility] [facility] 16:35:04 Pelvic and perineal pain [id number] Completed 201807/13/2021 Pelvic and perineal pain;Rec orded Elsewher e: No Locat ion: [facility] S ource: EHR Client Sales And Service Officer peg: N Adanti ce ID: 0001 Samuel lable Time: 08:45:00 AM Nathalia Alvarez [facility] 16:35:23 Finding of pattern of menstrua l cycle Completed 201807/13/2021 Menometr orrhagia ;Recorde d Elsewher e: No Locat ion: [facility] Macey ce ID: 0001 Samuel lable Time: 11:00:00 AM Nathalia Alvarez [facility] 16:35:17 Uses combined oral contrace ption [id number] Completed 201807/13/2021 Encounte r for initial prescrip tion of contrace ptive pills;Pr actice ID: 0001 Nathalia Alvarez [facility] 16:35:11 Clinical finding Completed 201807/13/2021 Encounte r for initial prescrip tion of injectab le contrace ptive;Re corded Elsewher e: No Locat ion: [facility] S ource: EHR Client Sales And Service Officer peg: N Adanti ce ID: 0001 Samuel lable Time: 10:45:00 AM Nathalia Alvarez [facility] 16:35:08 Clinical finding Completed 201907/13/2021 Encounte r for surveill ance of injectab le contrace ptive;Pr actice ID: [id number] Nathalia Alvarez [facility] 16:35:09 Problem Notes None recorded. Procedures Surgical History Date Name Laterality Status Provider Name and Address Organization Details Recorded Time 025 Endometrial Biopsy completed МАРИНА SMITH MD [address], [place], [address], [facility] 07/03/2025 12:37:33 024 IUD Insertion completed LAMONT Castañeda [address], [place], [address], [facility] 08/15/2024 13:26:23 022 procedure on neck completed Linda Astudillo [facility] 08/15/2024 12:51:11 021 procedure on wrist completed Linda Astudillo [facility] 08/15/2024 12:50:30 020 completed Nathalia Alvarez [facility] 07/13/2021 16:36:08 020 Date of Last Pap Smear completed Pinky Joe [facility] 09/27/2022 12:24:59 019 surgical manipulation of wrist joint completed Linda Astudillo [facility] 08/15/2024 12:50:18 007 procedure on knee completed Linda Astudillo [facility] 08/15/2024 12:50:02 007 cholecystectomy completed Linda Astudillo [facility] 08/15/2024 12:49:35 005 procedure on knee completed Linda Astudillo [facility] 08/15/2024 12:49:58 003 operative procedure on knee completed Linda Astudillo [facility] 08/15/2024 12:49:43 Imaging Results None recorded. Procedure Notes None recorded. Medical Equipment None Reported. Allergies Allergen ID Allergen Name Allergen Category Reaction Reaction Severity Criticality Documentation Date Start Date Code Code System Note Provider Name and Address Organization Details Recorded Time 1903 oxycodone medicatio n Not available Not available high 04/29/2020 7804 RxNorm [facility] 10:43:57 98682 doxycycli ne Not available Not available Not available Not available 07/16/20252020 3640 RxNorm Not Available [employer] - prod 5 14:40:49 04778 fluticaso ne / salmetero l medicatio n Not available Not available Not available 07/16/20252020 71043 5 RxNorm Not Available [employer] - prod 5 14:40:49 82135 acetamino phen / hydrocodo ne medicatio n anaphylax is Not available high 07/16/20252017 41957 2 RxNorm Not Available [employer] - prod 5 14:40:49 411 acetamino phen medicatio n Not available Not available high 12/26/2019 161 RxNorm Yecenia rene, [facility] 5 10:44:02 412 codeine medicatio n Not available Not available high 12/26/2019 2670 RxNorm Yecenia Martinez [facility], [facility] 5 10:43:53 413 hydrocodo ne Not available Not available Not available high 12/26/2019 5489 RxNorm Yecenia Martinez [facility], [facility] 5 10:43:49 Medications Name Sig Start Date Stop Date Status Note LastModified by Organization Details LastModified Time blood pressu solution kit 06/11 completed Not Available Not Available Not Available amoxicill in 500 mg capsule TAKE 1 CAPSULE BY MOUTH THREE TIMES DAILY FOR 7 DAYS 06/03 completed Not Available Not Available Not Available Mirena 21 mcg/24 hr (up to 8 years) 52 mg intrauter ine device Take 1 device by intraute rine route. 2023 active mirena inserted lot [id number] Exp 09/2026 Not Available Not Available Not Available promethaz ine-DM 6.25 mg-15 mg/5 mL oral syrup TAKE 5 ML BY MOUTH EVERY 4 HOURS NEEDED FOR COUGH active Not Available Not Available No t Available venlafaxi ne ER 37.5 mg capsule,e xtended release 24 hr TAKE 1 CAPSULE BY MOUTH EVERY DAY active Not Available Not Available No t Available prednison e 10 mg tablet TAKE 1 TAB 3 TIMES DAILY X3 DAYS, 1 TAB TWICE DAILY X2 DAYS, THEN 1 TAB ONCE DAILY X1 DAY 06/11 completed Not Available Not Available Not Available azithromy kelton 250 mg tablet TAKE 2 TABLETS BY MOUTH TODAY, THEN TAKE 1 TABLET DAILY FOR 4 DAYS DIRECTED 06/03 completed Not Available Not Available Not Available ibuprofen 800 mg tablet TAKE 1 TABLET BY MOUTH 1 HOUR PRIOR TO PROCEDUR E active Not Available Not Available No t Available fluconazo le 150 mg tablet Take 1 mg by oral route. 01/02 completed Not Available Not Available Not Available benzonata te 200 mg capsule TAKE 1 CAPSULE BY MOUTH THREE TIMES A DAY 05/16 completed Not Available Not Available Not Available ondansetr on HCl 8 mg tablet TAKE 1 TABLET BY MOUTH 1 HOUR PRIOR TO PROCEDUR E active Not Available Not Available No t Available sumatript an 25 mg tablet 09/27 completed Not Available Not Available Not Available metronida zole 0.75 % (37.5 mg/5 gram) vaginal gel INSERT 1 APPLICAT ORFUL VAGINALL Y EVERY DAY AT BEDTIME FOR 5 DAYS 06/03 completed Not Available Not Available Not Available ondansetr on HCl 4 mg tablet 09/27 [...] Not Available Not Available No t Available Macrobid 100 mg capsule Take 1 capsule every 12 hours by oral route for 7 days. 08/15 completed Not Available Not Available Not Available alprazola m 0.5 mg tablet TAKE 1 TABLET BY MOUTH 1 HOUR PRIOR TO PROCEDUR E active Not Available Not Available No t Available Microgest in FE 09/17 (28) 1 mg-20 mcg (21)/75 mg (7) tablet take 1 tablet by oral route every day 07/02 completed Prescrib ed Elsewher e: No Locat ion: [facility] odify By: [email or web address] En counter DateTime : 05/15/20 14 04:00:00 PM Not Available Not Available Not Available amoxicill in 875 mg tablet TAKE 1 TABLET BY MOUTH EVERY 12 HOURS 06/03 completed Not Available Not Available Not Available methocarb [...] 3 times every day 07/02 completed Prescrib ed Elsewher e: No Locat ion: [facility] M odify By: [email or web address] trick En counter DateTime [...] Available hydroxyzi ne HCl 25 mg tablet Take 1 tablet 3 times a day by oral route for 30 days. 2024 active Not Available Not Available Not Avai lable mupirocin 2 % topical ointment APPLY 1 APPLICAT ION ONTO THE AFFECTED AREA(S) ON THE SKIN TWICE DAILY 07/24 completed Not Available Not Available Not Available ibuprofen 600 mg tablet TAKE 1 TABLET 3 TIMES A DAY BY ORAL ROUTE NEEDED. active Not Available Not Available No t Available methylpre dnisolone 4 mg tablets in a dose pack TAKE 6 TABLETS ON DAY 1 DIRECTED ON PACKAGE AND DECREASE BY 1 TAB EACH DAY FOR A TOTAL OF 6 DAYS active Not Available Not Available No t Available albuterol sulfate HFA 90 mcg/actua tion aerosol inhaler INHALE 1 PUFF BY MOUTH EVERY 6 HOURS NEEDED FOR SHORTNES S OR BREATH OR WHEEZING . 08/15 completed Not Available Not Available Not Available Prozac 10 mg capsule take 1 capsule by oral route every day 01/27 completed Prescrib ed Elsewher e: No Locat ion: [facility] odify By: aron steve DateTime : 12/18/19 15 08:30:00 AM Not Available Not Available Not Available Vitamin D2 1,250 mcg (50,000 unit) capsule take 1 capsule by oral route every week 09/20 completed Prescrib ed Elsewher e: No Locat ion: [facility] odify By: dorian Larios r DateTime : 04/30/20 14 12:05:29 PM Not Available Not Available Not Available albuterol sulfate 2 mg tablet take 1 tablet by oral route 3 times every day 09/20 completed Prescrib ed Elsewher e: Yes Loca tion: [facility] odify By: dorian Larios r DateTime : [...] injectio n given into right arm lot [id number] Exp 07/28/20 27 and patient is next due August 27, 2024-Sep 10, 2024 Not Available Not Available Not Available escitalop jameel 10 mg tablet TAKE 1 TABLET BY MOUTH EVERY DAY active Not Available Not Available No t Available escitalop jameel 20 mg tablet TAKE 1 TABLET BY MOUTH EVERYDAY AT BEDTIME active Not Available Not Available No t Available cyclobenz aprine 5 mg tablet 05/08 completed Not Available Not Available Not Available Symbicort 160 mcg-4.5 mcg/actua tion HFA aerosol inhaler inhale 2 puff by inhalati on route 2 times every day in the morning and evening 09/20 completed Prescrib ed [facility] e: Yes Loca tion: [facility] odify By: dorian Larios r DateTime : 04/10/20 14 08:30:00 AM Not Available Not Available Not Available lidocaine 5 % topical ointment APPLY TO AFFECTED AREA(S) BY TOPICAL ROUTE 1-4 TIMES DAILY NEEDED 01/02 completed Not Available Not Available Not Available Minastrin 24 Fe 1 mg-20 mcg (24)/75 mg (4) chewable tablet chew 1 tablet by oral route every day 03/26 completed Prescrib ed Teressaher e: No Locat ion: [facility] M odify By: [email or web address] Encount er DateTime : 10/17/19 11:00:00 AM Not Available Not Available Not Available [facility] ODT 75 mg disintegr ating tablet 07/24 completed Not Available Not Available Not Available graham sears (weight loss) active Not Available Not Available Not Available Vitals Date Recorded Body height Body mass index (BMI) Body weight Systolic And Diastolic Provider Name and Address Organization Details Last Updated DateTime 09/25/2024 165.1 cm 32.7 kg/m2 74862.98 g 117/79 mm[Hg] Kassandra Tobin [facility] 09/25/2024 11:45:46 Date Recorded Body height Body mass index (BMI) Body weight Systolic And Diastolic Provider Name and Address Organization Details Last Updated DateTime 06/25/2025 165.1 cm 31 kg/m2 50497.18 g 124/79 mm[Hg] Yecenia [facility] 06/25/2025 10:43:42 Date Recorded Body height Body mass index (BMI) Body weight Systolic And Diastolic Provider Name and Address Organization Details Last Updated DateTime 07/03/2025 165.1 cm 31.3 kg/m2 21794.37 g 121/78 mm[Hg] Yecenia [facility] 07/03/2025 12:03:51 Date Recorded Body height Body mass index (BMI) Body weight Systolic And Diastolic Provider Name and Address Organization Details Last Updated DateTime 07/24/2024 165.1 cm 34.1 kg/m2 31466.44 g 120/81 mm[Hg] Eden Fagan [facility] 07/24/2024 12:48:07 Date Recorded Body height Body mass index (BMI) Body weight Systolic And Diastolic Provider Name and Address Organization Details Last Updated DateTime 08/15/2024 165.1 cm 33.3 kg/m2 31798.47 g 126/85 mm[Hg] Linda Astudillo [facility] 08/15/2024 12:47:21 Social History Question Answer Notes LastModified by Organizat ion Details LastModified Time Tobacco Smoking Status Never Smoker Jan Broussard anju, [facility] 08/01/2023 09:18:09 Do You Have An [...] To Be High Risk For COVID-19? No [email or web address] Information not available 06/11/2024 Are You Deaf Or Do You Have Serious Difficulty Hearing? No Information not available 07/13/2021 What Type Of Diet Are You Following? REGULAR Information n ot available 07/13/2021 What Is The Highest Grade Or Level Of School You Have Completed Or The Highest Degree You Have Received? [id number] Information not available 09/03/2021 Are There Any [...] not available 09/03/2021 Are you able to walk independently without assistance or assistive devices? YESWOREST Information not available 07/13/2021 Are you able to care for yourself independently? 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 No [email or web address] Information not available 08/01/2023 What is your exercise level? Heavy Information not available 09/03/2021 Mental Status Question Answer Note LastModified by Organization D etails LastModified Time Do you feel stressed (tense, restless, nervous, or anxious, or unable to sleep at night)? [id number] Information not available 09/03/2021 Family History Relationship Description Onset Age of this Age Resolved Age Notes LastModified by Organization Details LastModified Time Mother Anemia [email or web address] Not available 12/26/2019 15:34:36 Maternal Grandmother Asthma [email or web address] Not available 15:34:43 Maternal Grandfather Malignant neoplasm of lung [email or web address] Not available 12/25 15:34:57 Maternal Aunt Malignant neoplasm of breast [email or web address] Not available 2024 11:55:54 Medical History Condition Response Other N Blood Transfusion N Dermatologic Disorders N Gestational Diabetes N Anxiety Disorder N Autoimmune disease N Arthritis N Polyps N Infertility N Acid Reflux (GERD) N Cancer N Varicosities N Stroke N Neurologic/Epilepsy Y Fibromyalgia N Headaches Y Kidney Disease N Heart Problems N Kidney or Bladder Problems N Eating Disorder N Art (IVF or FET) N Hepatitis/Liver Disease N No Past Medical History N Urinary Tract Infection N Asthma Y Trauma/Violence N Thrombophilias N Allergies (Food, seasonal, environmental ) Y Breast Cancer N Drug/Latex Allergies/Reactions N Lung Disease N Defects or Inherited Disease N Breast Problem N Hematologic disorders N Anesthesia Complications N History of STI N Deep Vein Thrombosis N Polycystic ovary syndrome N History of abnormal pap N Endometriosis N High Cholesterol N Thyroid Problems N GI Problems N Anemia N Psychiatric Illness N Ovarian Cancer N Diabetes N Pulmonary (TB, Asthma) N Eczema N Abuse/Domestic Violence N Depression/ depression N Heart Disease N Pre-Eclampsia N Hypertension N Osteoporosis N Gynecological History Statement/Question Response Flow Heavy Date of Last Mammogram Date of LMP 04/29/2025 STIs/STDs N HPV Vaccine N 05/20/2020 Current Control Method IUD Are cycles usually normal N Date of Last Colonoscopy Sexually Active? N [...] ICD10 Code Diagnosis IMO Codes Diagnosis Note [id number] Martinez Antoine MD [facility] [address] [address] 02/21/2020 16:41:45 02/22/2020 11:23:22 Contraception care management 738919908 Z30.9 [id number] Renée Lim CNM [facility] [address] [address] 05/08/2020 09:21:56 05/27/2020 16:33:06 Contraception care management 006272601 Z30.9 Surveillan ce of depot contraception done 0318986239 9104 Z30.42 Recommende d dexa d/t use of depo provera. Pt agreeable. Gynecologi c examination 70457982 Z01.419 Take Calcium with Vitamin D 1200mg [...] copy of today's plan if desired. Vaginitis 60468512 N76.0 Discussed use of mild soap like dove or ivory, cotton underwear w/out dye, hypoallerg enic detergent, wipe from front to back, avoid tub baths, keep perineum clean and dry, d/c use of baby wipes. Encouraged daily intake of yogurt or womens health probiotic. Internal and external affirm collected. Will send out diflucan per patient request. [id number] Bertha Fisher [facility] [address],[place] [address] 05/28/2020 09:36:20 05/28/2020 12:46:46 Vaginitis 05570480 N76.0 Candidiasis of vagina 72 558169 B37.9 [id number] Martinez Antoine MD [facility] [address],[place] [address] 07/28/2020 09:15:41 07/28/2020 23:44:23 Contraception care management 839031213 Z30.9 [id number] Martinez Antoine MD [facility] [address] [place] [address] 10/13/2020 09:31:01 10/15/2020 16:25:13 Contraception care management 105486685 Z30.9 [id number] Martinez Antoine MD [facility] [address],[place] [address] 01/02/2021 09:26:40 01/06/2021 09:44:54 Contraception care management 860146761 Z30.9 [id number] Dilcia Dc MD [facility] [address],[facility] [place] [address] 03/25/2021 14:55:27 03/26/2021 15:08:51 Contraception care management 615639418 Z30.9 [id number] Martinez Antoine MD [facility] [address],[place] [address] 06/12/2021 09:19:08 06/15/2021 11:43:12 Contraception care management 921870695 Z30.9 [id number] Giovana Martinez , [facility] [address],[place] [address] 09/03/2021 11:18:42 09/03/2021 12:16:42 Gynecologic examination 76283041 Z01.419 Suggested Calcium with Vitamin D 1200-1500m g daily. Patient advised to get an annual flu shot in the fall and she could obtain at [facility] or [facility] clinic. Also to obtain TDap vaccinatio n [...] >10yrsGene tic screen discussed Screening mammography 24 300100 Z12.31 Contracept ion care management 259380920 Z30.9 Skin irritation 59099366 7 L30.9 She will contact her PCP regarding her GI Issues she was having last week that has continued to cause random diarrhea which is irritating her anal skin. Suggested using solid crisco on toilet tissue after having a BM to decrease irritation in this area.May use ointment sparingly as well. [id number] Giovana Martinez [facility] [address],[place] [address] 11/23/2021 09:26:47 11/24/2021 16:16:09 Contraception care management 517904337 Z30.9 [id number] Giovana Martinez [facility] [address],[place] [address] 02/08/2022 14:44:54 02/08/2022 15:05:44 Contraception care management 003991870 Z30.9 [id number] Giovana Martinez [facility] [address],[place] [address] 04/26/2022 09:59:18 04/27/2022 16:16:39 Contraception care management 226524333 Z30.9 [id number] Giovana Martinez , [facility] [address],[place] [address] 07/12/2022 09:50:02 07/12/2022 10:07:23 Contraception care management 156805625 Z30.9 [id number] [facility] [address],[place] [address] 09/27/2022 12:01:52 09/27/2022 13:53:11 Screening for malignant neoplasm of breast 519306741 Z12.39 Contracept ion care management 962272112 Z30.9 Gynecologi c examination 16183426 Z01.419 Suggested Calcium with Vitamin D 1200-1500m g daily. Patient advised to get an annual flu shot in the fall and she could obtain at [facility] or [facility] take care clinic. Also to obtain TDap vaccinatio [...] this methodDeni es hx of DVT/PE, HTN, stroke/OR, cancer, liver diseaseR/B of DMPA discussed (including [...] year for WWE or sooner if needed [id number] Lili Montiel IVANIA [facility] [address] [address] 12/13/2022 09:26:44 12/13/2022 10:31:18 Contraception care 456504335 Z30.40 [id number] Lili Montiel IVANIA [facility] [address] [address] 02/28/2023 09:20:50 02/28/2023 12:07:38 Contraception care management 865980794 Z30.9 [id number] Lili Montiel [facility] [address] [place] [address] 05/16/2023 09:29:26 05/16/2023 10:05:15 Contraception care 140294713 Z30.40 [id number] Lili Montiel IVANIA [facility] [place] [address] 08/01/2023 09:17:51 08/02/2023 09:05:20 Contraception care management 954307591 Z30.9 [id number] Lili Montiel [facility] [place] [address] 01/09/2024 09:18:25 01/09/2024 12:59:06 Contraception care management 054710759 Z30.9 [id number] Lili Montiel IVANIA [facility] [address] [address] 03/26/2024 09:25:19 03/26/2024 09:59:32 Contraception care management 707289320 Z30.9 [id number] Martinez Antoine MD [facility] [address],[place] [address] 06/11/2024 09:54:22 06/11/2024 12:46:50 Contraception care management 792866361 Z30.9 [id number] [facility] [address],[place] [address] 07/24/2024 12:20:01 07/24/2024 13:47:11 Contraception care management 549426983 Z30.9 All BC options discussedi nt in Mirena IUDr/b/a reviewedsc heduled to RTC for insertion Urinary symptoms 8832096 08 R39.9 ua/cx sentrx sent, r/b/a reviewedpr ecautions discussed Time spent in visit is a total of 22 mins with at least 50% of visit consisting of counseling and review of plan of care. [id number] Lili Montiel IVANIA [facility] [address],[place] [address] 08/15/2024 11:46:21 08/15/2024 13:51:14 Screening procedure 15075517 Z13.9 Venereal d isease screening 878564219 Z11.3 Insertion of intrauterine contraceptive device 17622142 Z30.430 r/b/a reviewedUP T (-) / gc/ct/tric h testing sentconsen t reviewed and signedMire na IUD insertion performed (see procedure note)preca utions discussedR TC in 4-6 weeks for string check [id number] Lili Montiel IVANIA [facility] [address],[place] [address] 09/25/2024 11:33:48 09/25/2024 12:55:14 Vaginitis 17469904 N76.0 vaginitis panel sentdeclin ed STI screenvulv ar care guidelines discusseds uspect BV, rx sent, r/b/a reviewed IUD check 363414215 Z30. 431 Patient is here for 4-6wk IUD string checknorma l appearing IUD strings on exam She denies complicati ons, pain, or unpleasant side effects. Happy with this control method. Wishes to continue. Time spent in visit is a total of 25 mins with at least 50% of visit consisting of counseling and review of plan of care. [id number] МАРИНА SMITH MD [facility] [address] [address] 06/25/2025 10:27:33 06/27/2025 16:21:19 Pain in pelvis 19634494 R10.20 [id number] - painful cramping since IUD insertion and heavy bleeding for the past month- not interested in IUD removal/re placement or other medical management - would like to proceed with bilateral salpingect suman and endometria l ablation- discussed risks of surgery, including bleeding, infection, and injury to adjacent structures - will return to office for EMB prior to surgery [id number] МАРИНА SMITH MD [facility] [address] [address] 07/03/2025 11:55:47 07/03/2025 12:39:22 Pain in pelvis 60151535 R10.20 [id number] - painful cramping since IUD insertion and heavy bleeding for the past month- not interested in IUD removal/re placement or other medical management - would like to proceed with bilateral salpingect suman and endometria l ablation- discussed risks of surgery, including bleeding, infection, and injury to adjacent structures - EMB performed today, will follow up on results as available Health Concerns Section Related Observation LastModified by Organization Detai ls LastModified Time None Recorded Concern Status LastModified by Organization Details LastModified Time None Recorded Advance Directives Directive N: Payers Insurance Date Sequence Insurance Name Policy Number Policy De Dios Covered Member ID De Dios Member ID Guarantor Name 07/02/2025 1 [employer] (POS II) [id number] Falguni Hemphill [id number] Falguni Hemphill 08/15/2024 1 *SELF PAY* Ta celeste Tavera Joby 07/26/2025 1 [place] [id number] Falguni Cheemay [id number] Falguni Tavera Laurens 07/02/2025 1 [facility] [id number] Falguni Cheemay [id number] Falguni Tavera Joby 07/02/2025 1 [employer] [id number] Falguni Cheemay [id number] Falguni Hemphill Notes Date Note Type Note Provider Name and Address Organization Details Recorded Time 07/24/2024 text/html 44yoBC consultcurrently on depo proverawants to discuss other methods, Int in IUD urinary burning/frequency x 2 daysneg n/v/fneg flank pains Eden rene, [facility] 07/24/2024 15:36:31 08/15/2024 text/html Patient presents for IUD insertiondesires Mirena IUDcurrently using depo provera LAMONT Castañeda [address], [place], [address], [facility] 08/15/2024 13:28:29 09/25/2024 text/html 44yo presents for IUD checks/p Mirena IUD insertion 08/15/2024 vaginal discharge/fishy odor for the last week LAMONT Castañeda [address], [place], [address], [facility] 09/25/2024 12:52:32 06/25/2025 text/html ROS as noted in the HPI Patient presents for pelvic pain and heavy bleeding. She reports that since IUD insertion, her cramping has been painful and intermittent. She has had heavy bleeding for the past month. She is interested in ablation and removal of her IUD. МАРИНА SMITH MD [address], [place], [address], [facility] 06/27/2025 15:36:26 07/03/2025 text/html Patient presents for EMB prior to endometrial ablation. МАРИНА SMITH MD [address], [place], [address], [facility] 07/03/2025 12:38:16 OBGyn Episode No OBEpisode recorded.
--- OUTSIDE RECORDS SUMMARY | 2025-07-29 01:42 | XMS_ITS | Clinical Summary ---
Author Organization [facility] Address [address] [place] [address] Phone Care Team Providers Care Fashion Coordinator Name Role Phone Unavailable Primary Care Provider [...] Encounters Date Type Department Care Team Description 07/02/2025 External Device Data STL ABSTRACTION Provider, Abstract 06/25/2025 External Device Data STL ABSTRACTION Provider, Abstract 06/18/2025 External Device Data STL ABSTRACTION Provider, Abstract [...] 2000 08/10/2013, 03/10/2012, 02/09/2012 HPV/Cotest (21-29) 2002 HPV VACCINES (1 - 3-dose SCD M series) 2008 CERVICAL CANCER SCREENING 2011 HPV/Cotest (30-65) 2011 PAP SMEAR 2011 BREAST CANCER SCREENING 2021 INFLUENZA VACCINE (#1) 2025 , 06/22/2013, 08/10/2012 Insurance PPO [employer] BLUE ACCESS/TRUE BLUE PPO WORKERS COMP
--- OUTSIDE RECORDS SUMMARY | 2025-07-29 01:42 | XMS_ITS | Continuity of Care Document ---
Author Organization [facility] Address [address] [place] [address] Care Team Providers Care Engineer Rf Deployment Name Role Phone FIDENCIOBALWINDERTOM Primary Care Provider [phone] Assessment No assessment recorded. Plan of Treatment Reminders Order Date Submit Date Provider Last Modified By Organization Details Last Modified Time Details Appointments SURG Hysterosc opy 2024 10:00A M МАРИНА SMITH MD Not available Not available Not available SURG POST OP 2024 09:30A M МАРИНА SMITH MD Not available Not available Not available Lab None recorded. Referral None recorded. Procedures None recorded. Surgeries None recorded. Imaging None recorded. Medication Orders None recorded. Patient TargetsNo targets recorded. Patient InstructionsNo instructions recorded. Reason for Referral None Reported. Results Created Date Observation Date Name Description Value Unit Range Abnormal Flag Note LastModifiedBy Organization Detail LastModifiedTime 07/03/20 25 07/03/2025 SURGI SUDARSHAN PATHO LOGY surgical pathology SEE RESULT S BELOW CASE REPOR T: Surgi sudarshan Patho logy Repor t Case: [id number] Autho aki cooper Provi sagar: Alix Ball MD Colle cted: 07/03 1144 Order ing Locat ion: [place] Patho [facility] Recei hazel: 07/04 0340 Patho logis t: [address], MD Speci men: Romel lopez m, EMB ----- ----- ----- ----- ----- ----- ----- ----- ----- ----- ----- ----- ----- ----- ----- ----- ----- ---- FINAL DIAGN OSIS: Romel velizu m; biops y: Benmary n inact sara romel etriu m with jasmine al decid ual montesinos e sugge stive of exoge nous hormo ne effec t Elect wilmna faye by [address], MD on 2024 at 0542 CAT DOG OR OTHER PET GROOMER ----- ----- ----- ----- ----- ----- ----- ----- ----- ----- ----- ----- ----- ----- ----- ----- ----- ---- CLINI SUDARSHAN INFOR MATIO N: abnor mal uteri ne bleed ing MICRO SCOPI C DESCR IPTIO N: A porti on of the testi ng proce ss was perfo rmed at [facility] ine Labor atori es site NMDP1 18. Digit al imagi ng was used in the diagn ostic asses sment of this case. A micro scopi c exami natio n was perfo rmed. GROSS DESCR IPTIO N: A. Romel burrelljose carlos m. The speci men is label ed with the patie nt's name, demog raphi cs and EMB . Recei hazel in forma rossy is a 1.9 x 0.7 x 0.2 [address] gate of red-t an tissu e. The entir e speci men is submi tted in one casse tte. Gross ed by Deb Waldron on Not Available [facility] (Lab) [address], [place], [address], 07/05/2025 06:49:17 Result Notes None recorded. Problems Name Problem SNOMED Code Status Onset Date Resolution Date Notes Provider Name and Address Organization Details Recorded Time Screenin g for malignan t neoplasm of cervix Completed 201307/13/2021 Screenin g for malignan t neoplasm s of the cervix;R ecorded Elsewher e: No Locat ion: [facility] S ource: EHR Line Cook peg: N Practi ce ID: 0001 Samuel lable Time: 08:30:[address] [facility] 16:35:27 Adult health examinat ion Completed 201307/13/2021 Routine general medical examinat ion at a health care facility ;Practic e ID: [address] [facility] 16:35:06 Speciali zed medical examinat ion Completed 201307/13/2021 Routine gynecolo gical examinat ion;Prac joselito ID: 0001 Nathalia [facility] 16:35:32 Female genital organ symptoms [id number] Completed 201307/13/2021 Unspecif ied symptom associat ed with female genital organs;R ecorded Elsewher e: No Locat ion: [facility] S ource: EHR Line Cook peg: N Practi ce ID: 0001 Samuel lable Time: 04:00:[address] [facility] 16:35:12 Menstrua tion finding Completed 201307/13/2021 Menorrha lela Excessiv e Menstrua tion;Pra ctice ID: [address] [facility] 16:35:20 Pure hypercho lesterol emia [id number] Completed 201307/13/2021 Elevated choleste rol;Arthur rded Elsewher e: No Locat ion: [facility] S ource: EHR Line Cook peg: N Practi ce ID: 0001 Samuel lable Time: 04:00:[address] [facility] 16:35:26 Menopaus al symptom [id number] Completed 201407/13/2021 Hot flashes; Recorded Elsewher e: No Locat ion: Marina robbins [facility] S ource: EHR Line Cook peg: N Practi ce ID: 0001 Samuel lable Time: 08:30:00 AM Nathalia Alvarez [facility] 16:35:19 Abdomina l pain 85000579 Completed 201407/13/2021 Suprapub ic abdomina l pain;Rec orded Elsewher e: No Locat ion: [facility] S ource: EHR Line Cook peg: N Adanti ce ID: 0001 Samuel lable Time: 04:30:[address] [facility] 16:35:[address] Concept Completed 201407/13/2021 Encntr for general adult medical exam w/o abnormal findings ;Recorde d Elsewher e: No Locat ion: Trent itzel [facility] S ource: EHR Line Cook peg: N Practi ce ID: 0001 Samuel lable Time: 03:15:[address] [facility] 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 16:35:30 Pain in female genitali a Completed 201807/13/2021 Dysmenor gisel;Rec orded Elsewher e: No [facility] Cook peg: N Practi ce ID: 0001 Samuel lable Time: 09:45:00 AM Nathalia Alvarez [facility] 16:35:[address] Concept Completed 01/23/ 2019 07/13/2021 Encounte r for general adult medical exam with abnormal finding; Recorded Elsewher e: No Locat ion: Bel[facility]y itzel [facility] S ource: EHR Line Cook peg: N Adanti ce ID: 0001 Samuel lable Time: 09:45:[address] [facility] 16:35:25 Bleeding Completed 201807/13/2021 Abnormal uterine bleeding ;Recorde d Elsewher e: No Locat ion: [facility] itzel [facility] S ource: EHR Line Cook peg: N Practi ce ID: 0001 Samuel lable Time: 09:45:00 AM Nathalia [facility] 16:35:15 Abnormal uterine bleeding [id number] 100 Completed 201807/13/2021 Other specifie d abnormal uterine and vaginal bleeding ;Recorde d Elsewher e: No Locat ion: [facility] Adanti ce ID: 0001 Samuel lable Time: 08:45:[address] [facility] 16:35:04 Pelvic and perineal pain 198990937 Completed 201807/13/2021 Pelvic and perineal pain;Rec orded Elsewher e: No [facility] N Adanti ce ID: 0001 Samuel lable Time: 08:45:00 AM Nathalia [facility] 16:35:23 Finding of pattern of menstrua l cycle Completed 201807/13/2021 Menometr orrhagia ;Recorde d Elsewher e: No Locat ion: [facility] S ource: EHR Line Cook peg: N Adanti ce ID: 0001 Samuel lable Time: 11:00:[address] [facility] 16:35:17 Uses combined oral contrace ption 200903099 Completed 201807/13/2021 Encounte r for initial prescrip tion of contrace ptive pills;Pr actice ID: [address] [facility] 16:35:11 Clinical finding Completed 201807/13/2021 Encounte r for initial prescrip tion of injectab le contrace ptive;Re corded Elsewher e: No Locat ion: Marina robbins [facility] S ource: EHR Line Cook peg: N Practi ce ID: 0001 Samuel lable Time: 10:45:00 AM [facility] 16:35:08 Clinical finding Completed 201907/13/2021 Encounte r for surveill ance of injectab le contrace ptive;Pr actice ID: [address] [facility] 16:35:09 Problem Notes None recorded. Procedures Surgical History Date Name Laterality Status Provider Name and Address Organization Details Recorded Time 025 Endometrial Biopsy completed МАРИНА SMITH MD [address], [place], [address], [facility] 07/03/2025 12:37:33 024 IUD Insertion completed LAMONT Castañeda [address], [place], [address], [facility] 08/15/2024 13:26:23 022 procedure on neck completed Linda Astudillo [facility] 08/15/2024 12:51:11 021 procedure on wrist completed Linda Astudillo [facility] 08/15/2024 12:50:30 020 completed Nathalia Alvarez [facility] 07/13/2021 16:36:08 020 Date of Last Pap Smear completed Pinky Joe [facility] 09/27/2022 12:24:59 019 surgical manipulation of wrist joint completed [facility] 08/15/2024 12:50:18 007 procedure on knee completed [facility] 08/15/2024 12:50:02 007 cholecystectomy completed [facility] 08/15/2024 12:49:35 005 procedure on knee completed [facility] 08/15/2024 12:49:58 003 operative procedure on knee completed [facility] 08/15/2024 12:49:43 Imaging Results None recorded. Procedure Notes None recorded. Medical Equipment None Reported. Allergies Allergen ID Allergen Name Allergen Category Reaction Reaction Severity Criticality Documentation Date Start Date Code Code System Note Provider Name and Address Organization Details Recorded Time 190 oxycodone medicatio n Not available Not available high 04/29/2020 7804 RxNorm [facility] 5 10:43:57 25384 doxycycli ne Not available Not available Not available Not available 07/16/20252020 3640 RxNorm Not Available nelson - External Data Service - prod 5 14:40:49 35802 fluticaso ne / salmetero l medicatio n Not available Not available Not available 07/16/20252020 20762 5 RxNorm Not Available nelson - External Data Service - prod 5 14:40:49 44743 acetamino phen / hydrocodo ne medicatio n anaphylax is Not available high 07/16/20252017 26447 2 RxNorm Not Available nelson - External Data Service - prod 5 14:40:49 411 acetamino phen medicatio n Not available Not available high 12/26/2019 161 RxNophil rene, [facility] 5 10:44:02 412 codeine medicatio n Not available Not available [facility] 12/26/2019 2670 RxNorm Yecenia rene, [facility] 5 10:43:53 413 hydrocodo ne Not available Not available Not available [facility] 12/26/2019 5489 RxNophil Martinez [facility], [facility] 5 10:43:49 Medications Name Sig Start [...] rine route. 2023 active mirena inserted lot [id number] Exp 09/2026 Not Available Not Available Not [...] ed Elsewher e: No Locat ion: Marina robbins [facility] M odify By: [email or web address] trick En [...] ed Elsewher e: No Locat ion: Marina robbins [facility] odify By: [email or web address] trick En counter DateTime [...] ed Elsewher e: No Locat ion: Marina robbins [facility] odify By: aron steve DateTime : 12/18/19 15 08:30:00 AM Not Available Not Available Not Available Vitamin D2 1,250 mcg (50,000 unit) capsule take 1 capsule by oral route every week 09/20 completed Prescrib ed Elsewher e: No Locat ion: Marina robbins [facility] odify By: dorian Larios r DateTime : 04/30/20 14 12:05:29 PM Not Available Not Available Not Available albuterol sulfate 2 mg tablet take 1 tablet by oral route 3 times every day 09/20 completed Prescrib ed Elsewher e: Yes Loca tion: [facility] odify By: dorian Larios r DateTime [...] injectio n given into right arm lot [id number] Exp 07/28/20 27 and patient is next [...] Prescrib ed Elsewher e: Yes Loca tion: [facility] odify By: dorian Larios r DateTime : [...] Prescrib ed Elsewher e: No Locat ion: [facility] odify By: rocío Figueroa er DateTime : 10/17/19 19 11:00:00 AM Not Available Not Available Not Available Nurtec ODT 75 mg disintegr ating tablet 07/24 completed Not Available Not Available Not Available graham sears (weight loss) active Not Available Not Available Not Available Vitals Date Recorded Body height Body mass index (BMI) Body weight Systolic And Diastolic Provider Name and Address Organization Details Last Updated DateTime 07/03/2025 165.1 cm 31.3 kg/m2 78500.37 g 121/78 mm[Hg] Yecenia Martinez [facility] 07/03/2025 12:03:51 Social History Question Answer Notes LastModified by Organizat ion Details LastModified Time Tobacco Smoking Status Never Smoker Jan rene [facility] 08/01/2023 09:18:09 Do You Have An [...] To Be High Risk For COVID-19? No [email or web address] Information not available 06/11/2024 Are You Deaf Or Do You Have Serious Difficulty Hearing? No Information not available 07/13/2021 What Type Of Diet Are You Following? REGULAR Information n ot available 07/13/2021 What Is The Highest Grade Or Level Of School You Have Completed Or The Highest Degree You Have Received? [id number] Information not available 09/03/2021 Are There Any [...] Have Difficulty Walking Or Climbing Stairs? 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 No [email or web address] Information not available 08/01/2023 What is your exercise level? Heavy Information not available 09/03/2021 Mental Status Question Answer Note LastModified by Organization D etails LastModified Time Do you feel stressed (tense, restless, nervous, or anxious, or unable to sleep at night)? [id number] Information not available 09/03/2021 Family History Relationship Description Onset Age of this Age Resolved Age Notes LastModified by Organization Details LastModified Time Mother Anemia [email or web address] Not available 12/26/2019 15:34:36 Maternal Grandmother Asthma [email or web address] Not available 15:34:43 Maternal Grandfather Malignant neoplasm of lung [email or web address] Not available 12/25 15:34:57 Maternal Aunt Malignant neoplasm of breast [email or web address] Not available 2024 11:55:54 Medical History Condition Response Allergies (Food, seasonal, [...] ICD10 Code Diagnosis IMO Codes Diagnosis Note [id number] MD Jorge DORAN [address] [address] 06/25/2025 10:27:33 06/27/2025 16:21:19 Pain in pelvis [id number] R10.20 [id number] - painful cramping since IUD insertion and heavy bleeding for the past month- not interested in IUD removal/re placement or other medical management - would like to proceed with bilateral salpingect suman and endometria l ablation- discussed risks of surgery, including bleeding, infection, and injury to adjacent structures - will return to office for EMB prior to surgery [id number] МАРИНА SMITH MD [place] [address] [address] 07/03/2025 11:55:47 07/03/2025 12:39:22 Pain in pelvis 06914916 R10.20 [id number] - painful cramping since IUD insertion and [...] ID De Dios Member ID Guarantor Name 07/03/2025 1 ANGEL MCGUIRE-[place] (PPO) [id number] Falguni Hemphill [id number] Falguni Hemphill Notes Date Note Type Note Provider Name and Address Organization Details Recorded Time 07/03/2025 text/html Patient presents for EMB prior to endometrial ablation. МАРИНА SMITH MD [address], [place], [address], [facility] 07/03/2025 12:38:16 OBGyn Episode No OBEpisode recorded.
--- OUTSIDE RECORDS SUMMARY | 2025-07-29 01:42 | XMS_ITS | Clinical Summary ---
Author Organization [facility] Address [address] [place] [address] Phone Care Team Providers Care Internal Affairs Investigator Name Role Phone Freddy Vann MD Primary Care Provider [phone] Allergies Active Allergy Reactions Criticality Noted Date [...] Comments Blood Pressure 120/70 08/17/2021 10:42 AM CATERER'S AIDE Pulse 82 08/17/2021 10:42 AM CATERER'S AIDE Temperature 37 C (98.6 F) 08/17/2021 10:42 AM CATERER'S AIDE Respiratory Rate 16 08/17/2021 10:42 AM CATERER'S AIDE Oxygen Saturation 100% 08/17/2021 10:42 AM CATERER'S AIDE Inhaled Oxygen Concentration - - Weight 94.6 kg (208 lb 9.6 oz) 08/17/2021 10:42 AM CATERER'S AIDE Height 172.7 cm (5' 8) 08/17/2021 10:42 AM CATERER'S AIDE Body Mass Index 31.72 08/17/2021 10:42 AM CATERER'S AIDE Plan of Treatment Health Maintenance Due Date Last Done Comments Hepatitis C Virus (HCV) Screening 1981 TdaP Immunization 1981 Varicella Immunization (1 of 2 - 13+ 2-dose series) 1994 Pap Smear 2002 Human Papillomavirus (HPV) Immunization (1 - Risk 3-dose SCDM series) 2008 Cervical Cancer Screening (CCS) 2011 HPV/Cotest 2011 Influenza Immunization (#1) 2025 10/0 01/2021, 06/09/2018, 06/08/2018, Additional history exists SARS-COV-2 Immunization ( season) 2025 02/08/2021, 01/11/2021 Respiratory Syncytial Virus (RSV) Immunization (Adult) (1 - 1-dose 75+ series) 2056 Hepatitis B Immunization Completed 013, 03/10/2012, 02/09/2012 Meningococcal Immunization (ACWY) Aged Out No longer eligible based on patient's age to complete this topic Pneumococcal Immunization Combined Aged Out No longer eligible based on patient's age to complete this topic Rotavirus Immunization Aged Out No lo nger eligible based on patient's age to complete this topic Insurance [employer] Care Teams Internal Affairs Investigator Relationship Specialty Start Date End Date Freddy Vann MD PCP - General Internal Medicine 06/08/21
--- OUTSIDE RECORDS SUMMARY | 2025-07-29 01:42 | XMS_ITS | Clinical Summary ---
Author Organization [facility] Address [address] [place] [address] Care Team Providers Care Completion Engineer Name Role Phone Unavailable Primary Care Provider [...] of 3 - 19+ 3-dose series) 2000 HPV Vaccines (1 - 3-dose SCD M series) 2008 Cervical Cancer Screening Pa p with HPV Testing (Age 30 to 64) Every 5 Years 2011 Cervical Cancer Screening with HPV 2011 Mammogram Screening 2021 COVID-19 Vaccine ( - 2024-2 6 season) 2025 Influenza Adult (#1) 2025 Hepatitis A Vaccines Aged Out No long er eligible based [...]
--- OUTSIDE RECORDS SUMMARY | 2025-07-29 01:42 | XMS_ITS | Continuity of Care Document ---
Author Organization [facility] Address [address] [place] [address] Care Team Providers Care Head Start Coordinator Name Role Phone TOM NICOLAS Primary Care [...] with endometri al ablation (SURG) [address], [address] [place] [address], [id number], 07/01/2025 11:03:08 salpingec jhon, laparosco pic (SURG) [address], [address] [place] [address], [id number], 06/28/2025 15:10:09 Imaging None recorded. Medication Orders None recorded. Patient TargetsNo targets recorded. Patient InstructionsNo instructions recorded. Reason for Referral None Reported. Problems Name Problem SNOMED Code Status Onset Date Resolution Date Notes Provider Name and Address Organization Details Recorded Time Screenin g for malignan t neoplasm of cervix Completed 201307/13/2021 Screenin g for malignan t neoplasm s of the cervix;R ecorded Elsewher e: No Locat ion: [facility] S ource: EHR Linux Engineer peg: N Practi ce ID: 0001 Samuel lable Time: 08:30:00 AM [facility] 16:[facility]:27 Adult health examinat ion Completed 201307/13/2021 Routine general medical examinat ion at a health care facility ;Practic e ID: [address] [facility] 16:35:06 Speciali zed medical examinat ion Completed 201307/13/2021 Routine gynecolo gical examinat ion;Prac joselito ID: [address] [facility] 16:35:32 Female genital organ symptoms [id number] Completed 201307/13/2021 Unspecif ied symptom associat ed with female genital organs;R ecorded Elsewher e: No Locat ion: [facility] S ource: EHR Linux Engineer peg: N Practi ce ID: 0001 Samuel lable Time: 04:00:00 PM [address] Alvarez [facility] 16:35:12 Menstrua tion finding Completed 201307/13/2021 Menorrha lela Excessiv e Menstrua tion;Pra ctice ID: [address] [facility] 16:35:20 Pure hypercho lesterol emia [id number] Completed 201307/13/2021 Elevated choleste rol;Arthur rded Elsewher e: No Locat ion: [facility] S ource: EHR Linux Engineer peg: N Practi ce ID: 0001 Samuel lable Time: 04:00:00 PM Nathalia Alvarez [facility] 16:35:26 Menopaus al symptom [id number] Completed 201407/13/2021 Hot flashes; Recorded Elsewher e: No Locat ion: Trenttobi itzel [facility] S ource: EHR Linux Engineer peg: N Practi ce ID: 0001 Samuel lable Time: 08:30:00 AM Nathalia Alvarez [facility] 16:35:19 Abdomina l pain [id number] Completed 201407/13/2021 Suprapub ic abdomina l pain;Rec orded Elsewher e: No Locat ion: Marina robbins [facility] S ource: EHR Linux Engineer peg: N Practi ce ID: 0001 Samuel lable Time: 04:30:00 PM Nathalia Alvarez [facility] 16:35:[address] Concept Completed 201407/13/2021 Encntr for general adult medical exam w/o abnormal findings ;Recorde d Elsewher e: No Locat ion: [place] itzel [facility] S ource: EHR Linux Engineer peg: N Practi ce ID: 0001 Samuel lable Time: 03:15:00 PM [address] Alvarez [facility] 16:35:[address] Concept Completed 201407/13/2021 Encntr for garment folder exam (general ) (routine ) w/o abn findings ;Practic e ID: [address] [facility] 16:35:30 Pain in female genitali a Completed 201807/13/2021 Dysmenor gisel;Rec orded Elsewher e: No Locat ion: Marina robbins [facility] S ource: EHR Linux Engineer peg: N Practi ce ID: 0001 Samuel lable Time: 09:45:00 AM Nathalia Alvarez [facility] 16:35:[address] Concept Completed 201807/13/2021 Encounte r for general adult medical exam with abnormal finding; Recorded Elsewher e: No Locat ion: Belindacorky itzel [facility] S ource: EHR Linux Engineer peg: N Practi ce ID: 0001 Samuel lable Time: 09:45:00 AM Nathalia Alvarez [facility] 16:35:25 Bleeding Completed 201807/13/2021 Abnormal uterine bleeding ;Recorde d Elsewher e: No [facility] Pract[facility] ID: 0001 Samuel lable Time: 09:45:00 AM Nathalia Alvarez [facility] 16:35:15 Abnormal uterine bleeding [id number] 100 Completed 201807/13/2021 Other specifie d abnormal uterine and vaginal bleeding ;Recorde d Elsewher e: No Locat ion: [facility] N Adanti ce ID: 0001 Samuel lable Time: 08:45:00 AM Nathalia Alvarez [facility] 16:35:04 Pelvic and perineal pain [id number] Completed 201807/13/2021 Pelvic and perineal pain;Rec orded Elsewher e: No Locat ion: [facility] N Adanti ce ID: 0001 Samuel lable Time: 08:45:00 AM Nathalia Alvarez [facility] 16:35:23 Finding of pattern of menstrua l cycle Completed 201807/13/2021 Menometr orrhagia ;Recorde d Elsewher e: No Locat ion: [facility] N Practi ce ID: 0001 Samuel lable Time: 11:00:00 AM Nathalia Alvarez [facility] 16:35:17 Uses combined oral contrace ption [id number] Completed 201807/13/2021 Encounte r for initial prescrip tion of contrace ptive pills;Pr actice ID: [address] [facility] 16:35:11 Clinical finding Completed 201807/13/2021 Encounte r for initial prescrip tion of injectab le contrace ptive;Re corded Elsewher e: No Locat ion: Marina robbins [facility] S ource: EHR Linux Engineer peg: N Practi ce ID: 0001 Samuel lable Time: 10:45:00 AM Nathalia rene [facility] 16:35:08 Clinical finding Completed 201907/13/2021 Encounte r for surveill ance of injectab le contrace ptive;Pr actice ID: 0001 Nathalia Antonio rene [facility] 16:35:09 Problem Notes None recorded. Procedures Surgical History Date Name Laterality Status Provider Name and Address Organization Details Recorded Time 025 Endometrial Biopsy completed МАРИНА SMITH MD [address], [place], [address], [facility] 07/03/2025 12:37:33 024 IUD Insertion completed LAMONT Castañeda [address], [place], [address], [facility] 08/15/2024 13:26:23 022 procedure on neck completed Linda Astudillo [facility] 08/15/2024 12:51:11 021 procedure on wrist completed Linda Astudillo [facility] 08/15/2024 12:50:30 020 completed Nathalia Alvarez [facility] 07/13/2021 16:36:08 020 Date of Last Pap Smear completed Pinky Joe [facility] 09/27/2022 12:24:59 019 surgical manipulation [facility] 12:50:18 007 procedure on knee completed [facility] 08/15/2024 12:50:02 007 cholecystectomy completed [facility] 08/15/2024 12:49:35 005 procedure on knee completed [facility] 08/15/2024 12:49:58 003 operative procedure on knee completed [facility] 08/15/2024 12:49:43 Imaging Results None recorded. Procedure Notes None recorded. Medical Equipment None Reported. Allergies Allergen ID Allergen Name Allergen Category Reaction Reaction Severity Criticality Documentation Date Start Date Code Code System Note Provider Name and Address Organization Details Recorded Time 190 oxycodone medicatio n Not available Not available high 04/29/2020 7804 RxNorm [facility] 5 10:43:57 04601 doxycycli ne Not available Not available Not available Not available 07/16/20252020 3640 RxNorm Not Available nelson [employer] External Data [employer] - prod 5 14:40:49 67135 fluticaso ne / salmetero l medicatio n Not available Not available Not available 07/16/20252020 22249 5 RxNorm Not Available [employer]elson[employer]sis Data Service - prod 5 14:40:49 15187 acetamino phen / hydrocodo ne medicatio n anaphylax is Not available high 07/16/20252017 09767 2 RxNorm Not Available [employer] External Data Service - prod 5 14:40:49 411 acetamino phen medicatio n Not available Not available [facility] 12/26/2019 161 RxNorm [facility] 5 10:44:02 412 codeine medicatio n Not available Not available high 12/26/2019 2670 RxNorm Yecenia rene, [facility] 5 10:43:53 413 hydrocodo ne Not available Not available Not available [facility] 12/26/2019 5489 RxNorm Yecenia rene, [facility] 5 10:43:49 Medications Name Sig Start [...] rine route. 2023 active mirena inserted lot [id number] Exp 09/2026 Not Available Not Available Not [...] Prescrib ed Elsewher e: No Locat ion: [facility] M odify By: [email or web address] trick En counter [...] ed Elsewher e: No Locat ion: [facility] odify By: [email or web address] trick En counter DateTime [...] ed Elsewher e: No Locat ion: [facility] odify By: aron steve DateTime : 12/18/19 15 08:30:00 AM Not Available Not Available Not Available Vitamin D2 1,250 mcg (50,000 unit) capsule take 1 capsule by oral route every week 09/20 completed Prescrib ed Elsewher e: No Locat ion: Marina robbins [facility] odify By: dorian Larios r DateTime : 04/30/20 14 12:05:29 PM Not Available Not Available Not Available albuterol sulfate 2 mg tablet take 1 tablet by oral route 3 times every day 09/20 completed Prescrib ed Elsewher e: Yes Loca tion: Marina robbins [facility] odify By: dorian Larios r DateTime [...] injectio n given into right arm lot [id number] Exp 07/28/20 27 and patient is next [...] Prescrib ed Elsewher e: Yes Loca tion: [facility] odify By: dorian Larios r DateTime [...] ed Elsewher e: No Locat ion: [facility] odify By: [email or web address] Encount er DateTime : 10/17/19 11:00:00 AM [...] Updated DateTime 06/25/2025 165.1 cm 31 kg/m2 65844.18 g 124/79 mm[Hg] Yecenia Martinez [facility] 06/25/2025 10:43:42 Social History Question Answer Notes LastModified by Organizat ion Details LastModified Time Tobacco Smoking Status Never Smoker Jan rene, [facility] 08/01/2023 09:18:09 Do You Have An [...] To Be High Risk For COVID-19? No [email or web address] Information not available 06/11/2024 Are You Deaf Or Do You Have Serious Difficulty Hearing? No Information not available 07/13/2021 What Type Of Diet Are You Following? REGULAR Information n ot available 07/13/2021 What Is The Highest Grade Or Level Of School You Have Completed Or The Highest Degree You Have Received? [id number] Information not available 09/03/2021 Are There Any [...] able to care for yourself independently? 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 No [email or web address] Information not available 08/01/2023 What is your exercise level? Heavy Information not available 09/03/2021 Mental Status Question Answer Note LastModified by Organization D etails LastModified Time Do you feel stressed (tense, restless, nervous, or anxious, or unable to sleep at night)? NB8969-3 Information not available 09/03/2021 Family History Relationship Description Onset Age of this Age Resolved Age Notes LastModified by Organization Details LastModified Time Mother Anemia [email or web address] Not available 12/26/2019 15:34:36 Maternal Grandmother Asthma [email or web address] Not available 15:34:43 Maternal Grandfather Malignant neoplasm of lung [email or web address] Not available 12/25 15:34:57 Maternal Aunt Malignant neoplasm of breast [email or web address] Not available 2024 11:55:54 Medical History Condition [...] ICD10 Code Diagnosis IMO Codes Diagnosis Note [id number] МАРИНА SMITH MD [place] [address] [address] 06/25/2025 10:27:33 06/27/2025 16:21:19 Pain in pelvis [id number] R10.20 [id number] - painful cramping since IUD insertion and heavy bleeding for the past month- not interested in IUD removal/re placement or other medical management - would like to proceed with bilateral salpingect suman and endometria l ablation- discussed risks of surgery, including bleeding, infection, and injury to adjacent structures - will return to office for EMB prior to surgery Health Concerns Section Related Observation LastModified by Organization Detai ls LastModified Time None Recorded Concern Status LastModified by Organization Details LastModified Time None Recorded Payers Encounter Date Sequence Insurance Name Policy Number Policy De Dios Covered Member ID De Dios Member ID Guarantor Name 06/25/2025 1 [facility] [id number] Falguni L Joby [id number] Falguni Ayse Hemphill Notes Date Note Type Note Provider Name and Address Organization Details Recorded Time 06/25/2025 text/html ROS as noted in the HPI Patient presents for pelvic pain and heavy bleeding. She reports that since IUD insertion, her cramping has been painful and intermittent. She has had heavy bleeding for the past month. She is interested in ablation and removal of her IUD. МАРИНА SMITH MD [address], [place], [address], [facility] 06/27/2025 15:36:26 OBGyn Episode No OBEpisode recorded.
--- NOTE | 2025-07-29 08:15 | P.PNAN_ITS ---
Anes - Initial Pre Proc Eval Procedure: Operation Date: 07/29/25 10:00 Proposed Procedures p Hysteroscopy with Deborah Endometrial Ablation, Laparoscopic Bilateral Salpingectomy - Chase Whaley MD Date/Time: 07/29/25 08:15 Surgeon: Chase Whaley MD Pre Op Diagnosis: Pain in pelvis Patient Data Age: 45 Gender: F Height: 1.73 m Weight: 72.57 kg Allergies Allergy/AdvReac Type Severity Reaction Status Date / Time doxycycline Allergy Severe SWELLING Verified 07/22/25 14:10 IN THE MOUTH codeine Allergy Unknown MOUTH Verified 07/22/25 14:10 INFLAMMATION AND MOUTH SORES hydrocodone AdvReac Severe swelling Verified 07/22/25 14:10 Home Medications ?Medication ?Instructions ?Recorded ?Confirmed ?Type venlafaxine 37.5 mg 37.5 mg PO QPM 07/22/2506/30 History capsule,extended release 24 hr Patient hx anesthesia problems: none Family hx anesthesia problems: none Results Review: All pre-operative results and documents have been reviewed as part of the pre- operative evaluation. [facility] Past Medical History Medical History Depression Eczema Fatty liver History of gallbladder disease History of pneumonia Hx of transient ischemic attack (TIA) Surgical History Surgical History History of cholecystectomy History of left knee surgery x1 Hx of right knee surgery x2 Family History Family History Mother Hypertension Other Cerebrovascular accident Diabetes mellitus Family history of allergic disorder Family history of malignant neoplasm Social History Social History Smoking status: Never smoker Second hand tobacco smoke exposure: Yes Smoking end date: 08/29/95 Alcohol intake: never Living arrangements: with family Gender identity (if verbalized by the patient): Female Spiritual care concerns: No Anes - Eval Final PreProcedure Day of Procedure 07/29/25 08:15 Patient weight: normal Heart: regular rate and rhythm Lungs: clear to auscultation Airway: Mallampati scale class II Neurological: alert and oriented Last oral intake: >/= 8 hours ASA classification: II Emergent: no Anesthetic plan: proceed Anesthesia type and monitoring: general ETT and standard monitoring Results Review: All pre-operative results and documents have been reviewed as part of the pre-operative evaluation. Informed Consent: The patient's anesthetic plan and its attendant risks and benefits were discussed with the patient/family/POA. Questions were solicited and answers provided to the satisfaction of the patient/family/POA.
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
--- NOTE | 2025-07-29 09:06 | WPDHPUPDATE1 ---
History and Physical Update Update Date/Time: 07/29/25 09:06 History and Physical has been reviewed, including an updated exam of the patient. There are NO changes in the patient's condition. Risks, benefits, and alternatives have been discussed and questions answered. Patient agrees to proceed with procedure.
[2025-07-29] MEDS: KETOROLAC 15 MG/ML VIAL (*BKC) IV PUSH (09:15)
[2025-07-29] MEDS: ACETAMINOPHEN 500 MG TABLET 1000 MG PO (09:15)
[2025-07-29] MEDS: LACTATED RINGERS 1,000 ML 30 ML IV CONT ×2 (09:15→11:42)
[2025-07-29 10:18] LABS: BEDSIDEPREGUCG Negative (Negative)
--- NOTE | 2025-07-29 10:44 | S_PTH ---
PATIENT: Falguni Hemphill LOC: [facility] U#:[id number] AGE/SX: 45/F ROOM: RE07/29/[address]: Chase Whaley MD : 1980 BED: DIS: 07/29/2025 SPEC #: [id number] RECD: 07/29/25 11:51 STATUS: DENIS REHermelindo #: [id number] KEZIA: 07/29/25 10:[address]: Chase Whaley DEPT: [facility] Surgical RECD BY: Bernice Black ENTERED: 07/29/25 11:51 SP TYPE: Surgical OTHR DR: Freddy VannMD Tissues: A - Fallopian Tube Bilateral Procedures: Gross and Microscopic Level 2 Hematoxylin and Eosin Stain
--- NOTE | 2025-07-29 10:53 | W.PM.PROC2 ---
Procedure Note - Detailed Date of Procedure 07/29/25 Pre-op Diagnosis Pain in pelvis Post-op Diagnosis Same Procedure Performed laparoscopic bilateral salpingectomy, hysteroscopy, and endometrial ablation Surgeon Chase Whaley MD Anesthesia General Description of Procedure With IV fluids infusing, the patient was taken to the operating room. The patient was placed in supine position and SCDs were placed on the lower extremities. General anesthesia with endotracheal intubation was given. A time-out took place. The patient was placed in dorsal lithotomy position using Martin stirrups and she was prepped and draped in the usual sterile fashion. The bladder was drained of clear urine using a red rubber catheter. A sterile speculum was placed vaginally, the anterior lip of the cervix was grasped with a single-tooth tenaculum and the acorn uterine manipulator was placed without difficulty. The speculum was removed. The surgeon's gloves were changed and attention was turned to the abdomen. A 5 mm incision was made in the umbilicus. Under direct visualization with the scope, the umbilical port was inserted without difficulty. Another two trocars were placed under direct visualization in the left upper and left lower quadrants. The patient was placed in Trendelenburg and inspection of the pelvis noted the above findings. Appropriate pictures were taken. Using the LigaSure devise, a left salpingectomy was performed in the usual fashion. Care was taken to avoid the IP ligament. The same procedure was performed on the right. The instruments were all removed from the abdomen and the CO2 gas was allowed to escape. A bivalved speculum was then reinserted into the patient's vagina.?The acorn manipulator was removed. The uterus was sounded to 8 cm.? At this point, the? hysteroscope was then inserted into the uterine cavity. Saline was used as the distension medium. The above findings were noted. Both tubal ostia were visualized and pictures were taken.? The hysteroscope was then removed. The cervical length was then measured using the dilator and measured 3 cm.? The cervix was further dilated to accommodate the Deborah device. The Deborah device was then opened and the uterine cavity length set at 5 cm.? The device was deployed, the mesh examined, and then reinserted into the sheath.? The device was then inserted into the uterine cavity, deployed, and cavity width measurement was appropriate.? The cavity assessment was performed and was within normal limits.? The device was then activated.? Once the ablation was completed the device was removed and the hysteroscope reinserted.? The burn was noted to be equal and adequate.? The hysteroscope and tenaculum were removed.? The anterior lip of the cervix was hemostatic, the bivalve speculum was then removed.? The three skin incisions were reapproximated with 4-0 Polysorb in a subcuticular manner, followed by skin glue. The patient tolerated the procedure well.? Sponge, lap, needle, and instrument counts were correct X3.? The patient was taken out of the dorsal lithotomy position and awakened from anesthesia and taken to the recovery room in stable condition. Estimated Blood Loss 5 Pathology Yes Complications No immediate complications Condition Stable Disposition Same day
[2025-07-29] MEDS: fentaNYL CITRATE INJ (*CRX) 100 MCG/2 ML VIAL 25 MCG IV PUSH ×4 (11:24→11:42)
[2025-07-29] MEDS: traMADol HCL (*CRX) 50 MG TABLET PO (12:42)
== END 2025-07-29 13:40 | disposition home or self-care (01) ==
PROVIDERS: PCP Internal Medicine; Visit Provider Obstetrics & Gynecology
PROC: 0UDB8ZZ Extraction of Endometrium, Via Natural or Artificial Opening Endoscopic (ICD-10-PCS; CPT 58558; principal; 2025-07-29 10:00)
DX: N92.1 Excessive and frequent menstruation with irregular cycle (principal); R10.20 Pelvic and perineal pain unspecified side
CPT/HCPCS: 58661; 58563; 88302; A9270; J1100; J1885; J2003; J2250; J2405; J2704; J3010; J7120